=== PATIENT | male | born 1955 | race Caucasian/White ===

== ENCOUNTER 2016-07-10 10:35 | Inpatient (IN) | payer BC ==
[2016-08-10] MEDS ORDERED: ONDANSETRON 4 MG/2 ML VIAL IVP ONE (05:00)
[2016-08-10] MEDS ORDERED: MELOXICAM 7.5 MG TAB PO ONE (05:00)
[2016-08-10] MEDS ORDERED: ACETAMINOPHEN TAB 500 MG TAB PO ONE (05:00)
[2016-08-10] MEDS ORDERED: TRANEXAMIC ACID 1,000 MG in SODIUM CHLORIDE 0.9% 100 ML IVPB ONE (05:00)
[2016-08-10] MEDS ORDERED: ceFAZolin 2 GM in SODIUM CHLORIDE 0.9% 100 ML IVPB ONE (05:00)
[2016-08-10] MEDS ORDERED: MIDAZOLAM 2 MG/2 ML VIAL IV PRN (05:57)
[2016-08-10] MEDS ORDERED: HYDROmorphone 1 MG/ML 1 ML SYRINGE IVP PRN ×4 (05:57→13:15)
[2016-08-10] MEDS ORDERED: DEXAMETHASONE SOD PHOSPHATE 10 MG/ML 1 ML VIAL IV ONE (05:57)
[2016-08-10] MEDS ORDERED: SCOPOLAMINE 1.5MG/72HR PATCH TRANSDERM ONE (05:57)
[2016-08-10] MEDS ORDERED: LIDOCAINE 1% 20 ML VIAL (10MG/ML) FOR IV START INTRADERMA ONE (09:00)
[2016-08-10] MEDS ORDERED: ROPIVACAINE 1,100 MG, SODIUM CHLORIDE 0.9% 330 ML MISCELLANE PRN ×2 (09:46)
--- NOTE | 2016-08-10 09:47 | P.ONQ ---
Anesthesiology Proc Note - PNB - Peripheral Nerve Block Performed Left Adductor Canal Indication: Acute Post-Operative Pain, Dx/Pain Location, Requested by physician (raghavendra) Sedation Type: Sedate with meaningful contact maintained Preparation: Sterile Dressing Position: Supine Catheter: Indwelling Needle Types: On-Q Needle Size: 100mm (4") Needle Gauge: 20 Injectate: 0.5% Ropivacaine (see comment for volume) (22cc) Blood Aspirated: No Pain Paresthesia on Injection Noted: No Resistance on Injection: Normal Events: Uneventful and Well Tolerated
[2016-08-10] MEDS: LACTATED RINGERS 1,000 ML IV SCH ×2 (09:59→19:38)
--- NOTE | 2016-08-10 10:27 | P.OP ---
Date of Procedure: 08/10/16 Procedure(s) Performed: PREOPERATIVE DIAGNOSIS: Left knee severe osteoarthritis with genu varum POSTOPERATIVE DIAGNOSIS: Left knee severe osteoarthritis with genu varum OPERATION: Left knee cemented total replacement arthroplasty. ANESTHESIA: Spinal ESTIMATED BLOOD LOSS: 100 ml. IDENTITY MANAGEMENT DEVELOPER: Shweta Rodriguez PA-C (assistance with: patient positioning, retraction, exposure, hemostasis, leg positioning, implantation, irrigation, closure, dressing) COMPLICATIONS: None apparent. COMPONENTS IMPLANTED: Persona system from [employer] INDICATIONS: Mr. Winn is a 61-year-old male with a history of bilateral knee osteoarthritis. The operation of left knee replacement has been discussed at length in the office, as well as potential risks and complications. These are inclusive of, but not limited to: bleeding, infection, scarring, discomfort , blood vessel and nerve damage, need for further surgery, failure to relieve symptoms, persistence, recurrence, or worsening of problems, loosening, dislocation, wear, blood clot, pulmonary embolism, , gait dysfunction, stiffness, and other risks as discussed in the office. The patient elects to proceed and the consent form has been signed. PROCEDURE: The patient was taken to the operating room and positioned on the operating room table in the supine position. Anesthesia was initiated. Care was taken to make sure that all pressure points were adequately padded. The operative lower extremity was prepped and draped in the usual aseptic fashion using ChloraPrep. Ioban drape was used for the case and the patient received intravenous antibiotics within one hour of the incision. A pneumotourniquet and leg hutchins were used for the case. The limb was exsanguinated with an Esmarch bandage and the tourniquet was inflated to 300 mmHg. Time-out was called confirming the patient's identity, side, procedure and administration of antibiotics. The incision was then created midline directly over the knee, carried down through skin and into the subcutaneous tissues and down to fascia. Full thickness subcutaneous medial flap was developed. Medial parapatellar arthrotomy was performed and the interior of the knee was inspected. There was end-stage osteoarthritis of the knee with a mild to moderate genu varum type deformity. The fat pad was excised and proximal medial release on the tibia was completed using meticulous dissection and a curved osteotome. The anterior cruciate ligament was taken down. Note was made of significant attrition of the anterior and significant degenerative appearance of the posterior cruciate ligaments. The exposure was excellent. The knee was flexed 90 degrees and the patella was everted. A spot was chosen on the femur approximately 1 cm anterior to the posterior cruciate ligament insertion and an intramedullary hole was created within the femur. The intramedullary guide was then set to 5 degrees of valgus. The distal cutting block was attached and pinned into position. An appropriate amount of distal femoral resection was set. The oscillating saw was then used to make the distal femoral cut. This cut was confirmed to be flat with the flat end of an osteotome. The retractors were placed around the tibia and the tibial surface was addressed. The angle and depth of resection was adjusted using an extramedullary cutting guide. The guide had a built-in 3 degree posterior slope cut. Once the cutting guide was adjusted appropriately and in line with the axis of the tibia and confirmed to be in good position in relation to the second metatarsal and transmalleolar axis, the tibial cut was then created with protection of the posterior neurovascular structures and the collateral ligaments. The tibial cut surface was removed and sized. Femoral sizing was then accomplished using anterior referencing. Care was taken to analyze the posterior condyles for signs of deficiency or severe wear, and adjustments to the guide were made, as appropriate. 3 degree external rotation pins were placed. The cutting jig for the femur was applied to these pins. The planned cuts were further analyzed prior to performing them with the oscillating saw. No femoral notching was produced. Bone fragments were removed and the cut surfaces were finished, as necessary, with a reciprocating saw. Spacer block technique was then used to confirm that the flexion and extension gaps were equal. Soft tissue releases and adjustment of the tibial and/or femoral cuts were made, as necessary, until the gaps were equal. This included release of the posterior cruciate ligament, which was tight in this patient and , if left unreleased, would have resulted in poor kinematics and possibly early loosening. The femur was then further finished for a posterior cruciate ligament substituting component. Patellar resurfacing was performed using a reamer. The size of the required patellar component was estimated and the patellar surface was then reamed down to a residual thickness which would recreate the qagan tayagungin thickness with the component. The placement of the patellar component was influenced by the degree of patellar subluxation, if any, noted on the preoperative x-rays. Prior to placing trial components, anesthetic solution consisting of ropivicaine with epinephrine, ketorolac, and clonidine was injected carefully and methodically in a grid pattern using aspiration technique into the soft tissue around the knee circumferentially, starting with the deeper tissues first and progressing to fascia, and then finally the skin/subcutaneous tissue. Particular care was taken when injecting the posterior capsule. The trial components were inserted. The tibial tray was allowed to self center and the patella was noted to track very well. The position of the tibial component was marked and the tibia was then finished for a stemmed tibial component. Cement was mixed on the back table and applied to the final components. Trial components were removed and the cut surfaces of the bone were pulse lavaged thoroughly and dried. Cement was then applied to the tibial surface and pressurized into the surface using finger pressurization technique. The tibial component was then applied and excess cement was removed after it was impacted securely and noted to be flush with the cut surface. In similar fashion, the cement was applied to the cut femoral surface, pressurized in using finger pressurization and the component was impacted into place. Excess cement was removed. The polyethylene spacer was then implanted and locked into position. The patellar component was then applied in similar technique and a patellar clamp was used to hold the patella in place as the cement hardened. Once the cement had fully hardened, the knee was reinspected. Any other cement extrusion was removed and final kinematic testing showed range of motion from 0 to 130 degrees with excellent stability, both medially and laterally and appropriate alignment of the leg. Patellar tracking was excellent. The knee was then thoroughly pulse lavaged with normal saline. The tourniquet was deflated and hemostasis was obtained with electrocautery and IV tranexamic acid, 1 g given prior to inflation of the tourniquet and another gram given at the time of closure. Closure was with #2 Ethibond in the fascia and supplemented with #2 Quill, 2-0 Vicryl suture was used for the subcutaneous tissues and 3-0 Quill for the skin. Dermabond/Steri-Strips were then applied. A lightly compressive dressing was applied using Webril and an Santiago wrap. The patient was then transferred to [facility] and taken to the recovery room in stable condition. Sponge and needle counts were correct.
[2016-08-10] MEDS ORDERED: diphenhydrAMINE 50 MG/ML 1 ML VIAL ONE (10:37)
[2016-08-10] MEDS ORDERED: MIDAZOLAM 2 MG/2 ML VIAL ONE (10:37)
[2016-08-10] MEDS ORDERED: PROPOFOL 10 MG/ML 20 ML VIAL IV ONE (10:37)
[2016-08-10] MEDS ORDERED: fentaNYL (PF) 50 MCG/ML 2 ML AMP ONE (10:37)
[2016-08-10] MEDS: ROPIVACAINE 246.25 MG, EPINEPHrine 0.5 MG, KETOROLAC 30 MG, cloNIDine HCL/PF 80 MCG, WA... MISCELLANE ONE ×10 (11:24→12:35)
[2016-08-10] MEDS ORDERED: ceFAZolin 3,000 MG in SODIUM CHLORIDE 0.9% IRRIGATIO 3,000 ML IRRIGATION ONE (11:24)
[2016-08-10] MEDS ORDERED: LACTATED RINGERS 1,000 ML IV ONE ×2 (11:24→12:29)
[2016-08-10] MEDS ORDERED: TEMAZEPAM 15 MG CAP PO PRN (13:15)
[2016-08-10] MEDS ORDERED: NALOXONE 0.4 MG/ML 1 ML VIAL IV PRN (13:15)
[2016-08-10] MEDS ORDERED: ONDANSETRON 4 MG/2 ML VIAL IVP PRN (13:15)
[2016-08-10] MEDS ORDERED: ACETAMINOPHEN TAB 325 MG TAB PO PRN (13:15)
[2016-08-10] MEDS ORDERED: MAGNESIUM HYDROXIDE 2,400 MG/10 ML CUP PO PRN (13:15)
[2016-08-10] MEDS ORDERED: HYDROcodone/APAP 5-325MG 1 EACH TAB PO PRN (13:15)
[2016-08-10] MEDS ORDERED: BISACODYL 10 MG SUPP RECTAL PRN (13:15)
[2016-08-10] MEDS ORDERED: NA PHOS,M-B/NA PHOS,DI-BA 133 ML ENEMA RECTAL PRN (13:15)
--- NOTE | 2016-08-10 13:39 | XR ---
EXAMINATION TYPE: XR knee limited LT DATE OF EXAM: 08/10/2016 1:35 PM COMPARISON: NONE HISTORY: Post op FINDINGS: There is a prosthetic knee in near anatomic alignment. There is soft tissue edema and emphysema. IMPRESSION: 1. Postoperative change. Appears in near-anatomic alignment
[2016-08-10 14:05] VITALS: RESP 16
[2016-08-10 16:30] VITALS: BMI 34.9
[2016-08-10] MEDS: HYDROcodone/APAP 5-325MG 1 EACH TAB PO PRN (18:18)
[2016-08-10] MEDS: hydrOXYzine PAMOATE 25 MG CAP PO PRN (18:18)
[2016-08-10] MEDS: ceFAZolin 2 GM in SODIUM CHLORIDE 0.9% 100 ML IVPB SCH (19:38)
[2016-08-10] MEDS: ASPIRIN 325 MG TAB PO SCH (20:10)
--- NOTE | 2016-08-10 20:53 | CONS ---
DATE OF CONSULTATION: 08/10/2016 REASON FOR CONSULTATION: Medical management requested by Dr. Nation. CONSULTATION: This is a 61-year-old patient of Dr. Nguyen who has undergone a left total knee arthroplasty. Postprocedure lying in bed comfortable. No chest pain, shortness of breath, nausea, vomiting. Patient's chronic stable medical conditions include hypertension. REVIEW OF SYSTEMS: CONSTITUTIONAL: None. HEENT: None. RESPIRATORY: None. CARDIOVASCULAR: None. GASTROINTESTINAL: None. GENITOURINARY: None. MUSCULOSKELETAL: Pain in the joints. Dermatological: None. HEMATOLOGIC: None. LYMPHATICS: None. PSYCHIATRY: None. NEUROLOGICAL: None. PAST MEDICAL HISTORY: Hypertension, osteoarthritis. PAST SURGICAL HISTORY: Left knee arthroplasty, ( ). SOCIAL HISTORY: The patient smoked 1 1/2 pack for 40 years; stopped in 2012. . 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 FAMILY HISTORY: Reviewed, noncontributory to the presentation. HOME MEDICATIONS: 1. Capozide 25/15 1 tablets p.o. daily. 2. Multivitamin 1 tablet p.o. daily. 3. Motrin 800 mg p.o. daily. 4. ( ) 1 tablet p.o. daily. 5. Flonase one spray each nostril daily. 6. Aspirin 81 mg daily. 7. Senokot-S 1 tablet p.o. b.i.d. 8. [place] 5, 1 to 2 tablets q.4 p.r.n. 9. Aspirin 325 p.o. b.i.d. ALLERGIES: None. On examination, temperature 97, pulse 84, respirations 16, blood pressure 137/89, pulse ox 99% on room air. GENERAL APPEARANCE: Well built, BMI of 35, lying in bed. EYES: Pupils equal. Conjunctivae normal. HEENT: External appearance of nose and ears normal. Oral cavity normal. NECK: JVD not raised. Mass not palpable. RESPIRATORY: Effort normal. LUNGS: Fair air entry. CARDIOVASCULAR: First and second sounds normal. No edema. ABDOMEN: Soft, nontender. Liver and spleen not palpable. LYMPHATIC: No lymph nodes palpable in neck or axillae. PSYCHIATRY: Alert and oriented x3. Mood and affect normal. NEUROLOGICAL: Pupils equal. Cranial nerves grossly intact. Power and sensation grossly intact. MUSCULOSKELETAL: Left knee in a dressing. INVESTIGATIONS: No labs from today. ASSESSMENT: 1. Essential hypertension. 2. Obesity, body mass index of 35.0. 3. Primary osteoarthritis with leading to left total knee arthroplasty. PLAN: For DVT prophylaxis the patient is aspirin per Dr. Nation for deep venous thrombosis prophylaxis. We are also aware of the patient being on Mobic which does increase the probability of GI bleeding. Thank you, Dr. Nation.
[2016-08-10] MEDS ORDERED: SENNOSIDES-DOCUSATE SODIUM 1 EACH TAB PO SCH (21:00)
[2016-08-11] MEDS: LACTATED RINGERS 1,000 ML IV SCH ×3 (00:25→09:31)
[2016-08-11] MEDS: hydrOXYzine PAMOATE 25 MG CAP PO PRN (01:19)
[2016-08-11] MEDS: HYDROcodone/APAP 5-325MG 1 EACH TAB PO PRN ×3 (01:20→13:47)
[2016-08-11 02:47] VITALS: PULSE 67
[2016-08-11] MEDS: ceFAZolin 2 GM in SODIUM CHLORIDE 0.9% 100 ML IVPB SCH (04:08)
[2016-08-11 07:24] VITALS: BP 134/71; TEMP 97.7
--- NOTE | 2016-08-11 08:21 | P.PN ---
Progress Note - Text The patient is status post left adductor canal catheter placement. The catheter was placed for postoperative pain control, status post total left arthroplasty. Ropivacaine 0.2% is infusing at 8 mLs per hour. The patient has no complaints of left lower extremity numbness or weakness. Patient's VAS score is 2 -10. Assessment: Patient's adductor canal catheter is in place and working appropriately. Plan: continue infusion and adjust it as needed.
[2016-08-11] MEDS: ASPIRIN 325 MG TAB PO SCH (08:26)
[2016-08-11] MEDS ORDERED: MELOXICAM 7.5 MG TAB PO SCH (09:00)
--- NOTE | 2016-08-11 09:33 | P.DS ---
Providers Date of admission: 08/10/16 08:23 Expected date of discharge: 08/11/16 Attending physician: Sebastián Nation Consults: 08/10/16 13:15 Consult Physician Routine Consulting Provider: Kenneth Garcia Consult Reason/Comments: medical management Do you want consulting provider notified?: Yes Primary care physician: [facility] Course: Patient was admitted to the OR on 08/10/2016 to undergo left total knee arthroplasty. He had failed conservative measures as an outpatient and desired to proceed with elective surgery after given informed consent. He underwent the above procedure which he tolerated well without complication. His postoperative hospital course has remained without complication. On day of discharge he desires discharge. On day of discharge he is afebrile, vital signs stable, labs within acceptable range, wound is benign, neurovascular status intact, calf is soft and nontender, abdomen is soft and nontender. On day of discharge he is denying new complaints including numbness, tingling, weakness, abdominal pain. He is tolerating by mouth meds and diet, voiding without difficulty and positive flatus. Review of systems is negative for fever , chills, chest pain, shortness breath, nausea, vomiting, dizziness, headaches, slurred speech, calf pain or other. Procedures: Total knee arthroplasty Patient Condition at Discharge: Good Plan - Discharge Summary New Discharge Prescriptions: Aspirin 325 mg PO BID #120 tab HYDROcodone/APAP 5-325MG [[place] 5] 1 - 2 each PO Q4-6H PRN #90 tab PRN Reason: Pain Sennosides-Docusate Sodium [Senokot-S] 1 tab PO BID #60 tablet Discharge Medication List Aspirin 81 mg PO DAILY 07/14/16 [History] Captopril-Hctz 25-15 mg [Capozide 25-15] 1 tab PO DAILY 07/14/16 [History] Fluticasone Nasal [place] [Flonase Nasal [place]] 1 spray EA NOSTRIL DAILY 07/14/16 [History] Ibuprofen [Motrin] 800 mg PO DAILY 07/14/16 [History] Multivitamins, Thera [Multivitamin] 1 tab PO DAILY 07/14/16 [History] [place] Xl 1 tab PO DAILY 07/14/16 [History] Aspirin 325 mg PO BID #120 tab 08/10/16 [Rx] HYDROcodone/APAP 5-325MG [[place] 5] 1 - 2 each PO Q4-6H PRN #90 tab 08/10/16 [Rx] Sennosides-Docusate Sodium [Senokot-S] 1 tab PO BID #60 tablet 08/10/16 [Rx] Follow up Appointment(s)/Referral(s): Sebastián Nation MD [STAFF PHYSICIAN] - 2 Weeks Ambulatory/Diagnostic Orders: Continuous Passive Motion (CPM) Machine [DME.AMB1] Time Frame: 3 Weeks, Facility : [facility], Location: Case Management Activity/Diet/Wound Care/Special Instructions: May bear weight as tolerated with walker. May shower after 2 days if no drainage from incision. CPM 5-6h hours daily. Discharge Disposition: HOME WITH HOME HEALTH SERVICES
[2016-08-11 10:31] LABS: Basophils % (A) 0 %; CH 32.6; CHCM 34.1; Eosinophils % (A) 0 %; HCT 35.7 % (39.0-53.0); HDW 2.51; HGB 11.9 gm/dL (13.0-17.5); Luc # (Auto) 0.14; Luc % (Auto) 1; Lymphocytes # (A) 1.4 k/uL (1.0-4.8); Lymphocytes % (A) 13 %; MCHC 33.4 g/dL (31.0-37.0); Mean Platelet Volume 7.9; Monocytes # (A) 0.5 k/uL (0-1.0); Monocytes % (A) 5 %; Neutrophils # (A) 8.4 k/uL (1.3-7.7); Neutrophils % (A) 80 %; RBC 3.72 m/uL (4.30-5.90); RDW 12.7 % (11.5-15.5); WBC 10.5 k/uL (3.8-10.6)
[2016-08-11] MEDS ORDERED: MULTIVITAMINS, THERA 1 EACH TAB PO SCH (12:00)
--- NOTE | 2016-08-12 08:53 | PN ---
DATE OF SERVICE: 08/11/2016 PRESENTING COMPLAINT: Left knee surgery. INTERVAL HISTORY: This is a patient I saw this morning, doing well. Pain is controlled. No nausea, vomiting, up and about. Review of systems done for constitutional, cardiovascular, GI, pulmonary; relevant findings as above. Current medications are reviewed. On examination, temperature 97.7, pulse 67, respirations 16, blood pressure 130/71, pulse ox 94% on room air. GENERAL APPEARANCE: Sitting up, comfortable. EYES: Pupils equal. Conjunctivae normal. NECK: JVD not raised. Mass not palpable. RESPIRATORY: Effort normal. Lungs are clear. CARDIOVASCULAR: First and second sounds normal. No edema. ABDOMEN: Soft, nontender. Liver and spleen not palpable. PSYCHIATRY: Alert and oriented x3. Mood and affect normal. INVESTIGATIONS: White count 10.5, hemoglobin 11.9. ASSESSMENT: 1. Essential hypertension. 2. Obesity; body mass index 35. 3. Primary osteoarthritis leading to left total knee arthroplasty. 4. Possible acute blood loss anemia as expected from surgery. Care was discussed with the patient and family. Continue current medication and treatment plan.
== END 2016-08-11 14:11 | disposition home health service (06) | DRG 470 ==
LOC: 2ORMAIN 08-10 08:23 → 3SUR 08-10 13:12
PROVIDERS: ADMIT Orthopaedic Surgery; ATTEND Orthopaedic Surgery
PROC: 0SRD0J9 Replacement of Left Knee Joint with Synthetic Substitute, Cemented, Open Approach (ICD-10-PCS; principal; 2016-08-10 10:35)
DX: M17.0 Bilateral primary osteoarthritis of knee (principal); I10 Essential (primary) hypertension; Z79.1 Long term (current) use of non-steroidal anti-inflammatories (NSAID); Z79.82 Long term (current) use of aspirin; Z79.899 Other long term (current) drug therapy; M21.162 Varus deformity, not elsewhere classified, left knee; Z87.891 Personal history of nicotine dependence
CPT/HCPCS: 85025; 88300

== ENCOUNTER → 2016-07-30 | Outpatient (CLI) | payer BC ==
[2016-07-30 15:49] LABS: Appearance,Urine Clear (Clear); Bilirubin,Urine Negative (Negative); Glucose,Urine (UA) Negative (Negative); Ketones,Urine Negative (Negative); Leukocyte Esterase,Urine Negative (Negative); Nitrite,Urine Negative (Negative); PH, Urine 5.5 (5.0-8.0); Protein,Urine Negative (Negative); Specific Gravity,Urine 1.019 (1.001-1.035); UA Billing (MACRO vs. MICRO) CHEM
[2016-07-30 16:03] LABS: ALT 50 U/L (21-72); AST 25 U/L (17-59); Alkaline Phosphatase 72 U/L (38-126); Anion Gap 12 mmol/L; Blood Urea Nitrogen 25 mg/dL (9-20); Calcium 9.2 mg/dL (8.4-10.2); Carbon Dioxide 28 mmol/L (22-30); Chloride 100 mmol/L (98-107); Glucose 120 mg/dL (74-99); Non-African American GFR(MDRD) 60 (>60 ml/min/1.73 sqM); Potassium 4.1 mmol/L (3.5-5.1); Sodium 140 mmol/L (137-145); Total Protein 7.3 g/dL (6.3-8.2)
[2016-07-30 16:09] LABS: Partial Thromboplastin Time 22.7 sec (22.0-30.0); Prothrombin Time 9.8 sec (9.0-12.0)
[2016-07-30 16:19] LABS: Basophils # (A) 0.1 k/uL (0-0.2); Basophils % (A) 1 %; CH 32.8; Eosinophils # (A) 0.1 k/uL (0-0.7); Eosinophils % (A) 2 %; HCT 43.6 % (39.0-53.0); HDW 2.44; HGB 14.7 gm/dL (13.0-17.5); Luc # (Auto) 0.18; Luc % (Auto) 3; Lymphocytes # (A) 1.5 k/uL (1.0-4.8); Lymphocytes % (A) 22 %; MCH 31.6 pg (25.0-35.0); MCHC 33.6 g/dL (31.0-37.0); MCV 93.9 fL (80.0-100.0); Mean Platelet Volume 7.3; Monocytes # (A) 0.3 k/uL (0-1.0); Monocytes % (A) 5 %; Neutrophils # (A) 4.5 k/uL (1.3-7.7); Neutrophils % (A) 68 %; RBC 4.64 m/uL (4.30-5.90); RDW 12.5 % (11.5-15.5); WBC 6.7 k/uL (3.8-10.6); WBC (Perox) 6.53
== END | disposition home or self-care (01) ==
LOC: LABPAT 15:20
PROVIDERS: ATTEND Orthopaedic Surgery
DX: Z01.812 Encounter for preprocedural laboratory examination (principal)
CPT/HCPCS: 80053; 81003; 85025; 85610; 85730; 87070

== ENCOUNTER → 2016-07-30 | Outpatient (CLI) | payer BC ==
--- NOTE | 2016-07-30 15:56 | XR ---
EXAMINATION TYPE: XR chest 2V DATE OF EXAM: 07/30/2016 3:22 PM COMPARISON: NONE HISTORY: Presurgical TECHNIQUE: Frontal and lateral views of the chest are obtained. FINDINGS: Exam is expiratory. Interstitium is increased. Patient is rotated. No pneumothorax or pleu ral effusion. Heart size may be accentuated by rotation. IMPRESSION: Expiratory rotated exam with prominence of interstitium. Follow-up as indicated.
== END | disposition home or self-care (01) ==
LOC: RADXRMAIN 15:03
PROVIDERS: ATTEND Family Medicine
DX: Z01.818 Encounter for other preprocedural examination (principal)
CPT/HCPCS: 71020; 80053; 81003; 85025; 85610; 85730; 87070

== ENCOUNTER 2018-01-07 09:23 | Day surgery (SDC) | payer BC ==
[2018-01-05 11:23] VITALS: BMI 36.9
[~2018-01-07 09:23] MED LIST: LACTATED RINGERS 1,000 ML IV SCH
[2018-01-07 10:10] VITALS: RESP 18; TEMP 98
[2018-01-07] MEDS ORDERED: LIDOCAINE 1% 20 ML VIAL (10MG/ML) FOR IV START INTRADERMA ONE (10:10)
[2018-01-07] MEDS ORDERED: PROPOFOL 10 MG/ML 20 ML VIAL IV ONE (10:56)
[2018-01-07] MEDS ORDERED: fentaNYL (PF) 50 MCG/ML 2 ML AMP ONE (10:56)
[2018-01-07] MEDS ORDERED: MIDAZOLAM 2 MG/2 ML VIAL ONE (10:56)
--- NOTE | 2018-01-07 11:17 | P.PCN ---
Date of Procedure: 01/07/18 Procedure(s) Performed: BRIEF HISTORY: Patient is a 62-year-old pleasant white male, scheduled for an elective colonoscopy as a part of evaluation of prior history of colon polyps. PROCEDURE PERFORMED: Colonoscopy. PREOPERATIVE DIAGNOSIS: History of colon polyps. IV sedation per Anesthesia. PROCEDURE: After informed consent was obtained, the patient, was brought into the endoscopy unit. IV sedation was administered by Anesthesia under continuous monitoring. Digital rectal examination was normal. Initially the Olympus CF- 160 flexible video colonoscope was then inserted in the rectum, gradually advanced into the cecum without any difficulty. Careful examination was performed as the scope was gradually being withdrawn. Ileocecal valve and the appendiceal orifice were visualized and appeared normal. Prep was excellent. Mucosa of the cecum, ascending colon, transverse colon, descending colon, sigmoid colon, and rectum appeared normal. Scattered sigmoid diverticulosis. Retroflexion was performed in the rectum and small internal hemorrhoids were seen. The patient tolerated the procedure well. IMPRESSION: Normal-appearing colon from rectum to cecum with no evidence of colorectal neoplasia . RECOMMENDATIONS: Findings of this examination were discussed with the patient as well as his family. He was advised to have a repeat screening colonoscopy in in 10 years.
[2018-01-07 11:32] VITALS: BP 129/77; PULSE 75
== END 2018-01-07 11:55 | disposition home or self-care (01) ==
LOC: ORWHC2ENDO 09:23
PROVIDERS: ATTEND Internal Medicine Gastroenterology
DX: Z12.11 Encounter for screening for malignant neoplasm of colon (principal); K57.30 Diverticulosis of large intestine without perforation or abscess without bleeding; K64.8 Other hemorrhoids; I10 Essential (primary) hypertension; Z86.010 Personal history of colon polyps; Z87.891 Personal history of nicotine dependence; Z79.82 Long term (current) use of aspirin; Z79.1 Long term (current) use of non-steroidal anti-inflammatories (NSAID); Z79.899 Other long term (current) drug therapy
CPT/HCPCS: J2250; J3010; J2704; G0105

== ENCOUNTER → 2020-06-21 | Outpatient (CLI) | payer MEDICARE ==
[2020-06-21 09:44] LABS: HCT 42.8 % (39.0-53.0); HGB 14.9 gm/dL (13.0-17.5); MCHC 34.8 g/dL (31.0-37.0); MCV 94.8 fL (80.0-100.0); Mean Platelet Volume 7.7; Platelet Count 311 k/uL (150-450); RBC 4.51 m/uL (4.30-5.90); RDW 12.2 % (11.5-15.5); WBC 7.7 k/uL (3.8-10.6)
[2020-06-21 16:00] LABS: African American GFR (CKD) 80.6 (60.0-200.0); Anion Gap 7.3 mmol/L (4.00-12.00); BUN/Creat Ratio 21.82 Ratio (12.00-20.00); Calcium 9.3 mg/dL (8.7-10.3); Carbon Dioxide 30.7 mmol/L (21.6-31.8); Chol/HDL Ratio 3.17; Non-African American GFR(CKD) 69.6 (60.0-200.0); Potassium 4.3 mmol/L (3.5-5.5)
[2020-06-21 17:14] LABS: Hemoglobin A1C 5.8 % (4.0-6.0)
== END | disposition home or self-care (01) ==
LOC: LABWHC1 08:56
PROVIDERS: ATTEND Family Medicine
DX: E78.00 Pure hypercholesterolemia, unspecified (principal); I10 Essential (primary) hypertension; R73.03 Prediabetes
CPT/HCPCS: 36415; 80048; 80061; 83036; 84450; 84460; 85027

== ENCOUNTER → 2020-10-01 | Outpatient (CLI) | payer MEDICARE ==
[2020-10-01 16:22] LABS: Chol/HDL Ratio 3.15; LDL Cholesterol,Calculated 105.4 mg/dL (0.0-131.0); VLDL Calculation 25.6 mg/dL (5.00-40.00)
== END | disposition home or self-care (01) ==
LOC: LABWHC1 08:20
PROVIDERS: ATTEND Family Medicine
DX: E78.00 Pure hypercholesterolemia, unspecified (principal)
CPT/HCPCS: 36415; 80061; 84450; 84460

== ENCOUNTER → 2021-01-01 | Outpatient (CLI) | payer MEDICARE ==
[2021-01-01 14:23] LABS: HCT 42.3 % (39.6-50.0); HGB 13.9 g/dL (13.0-17.0); MCHC 32.9 g/dL (32.0-37.0); MCV 97.2 fL (80.0-97.0); Mean Platelet Volume 10.9 fL (9.5-12.2); Platelet Count 285 X 10*3/uL (140-440); RBC 4.35 X 10*6/uL (4.40-5.60); RDW 12.2 % (11.5-14.5); WBC 6.56 X 10*3/uL (4.50-10.00)
[2021-01-01 17:53] LABS: Hemoglobin A1C 6.1 % (4.0-6.0)
[2021-01-01 19:47] LABS: African American GFR (CKD) 80.1 (60.0-200.0); Albumin 4.6 g/dL (3.80-4.90); Anion Gap 10.3 mmol/L (4.00-12.00); BUN/Creat Ratio 19.09 Ratio (12.00-20.00); Calcium 9.1 mg/dL (8.7-10.3); Carbon Dioxide 27.7 mmol/L (21.6-31.8); Chol/HDL Ratio 2.69; Globulin 2.3 g/dL (1.6-3.3); LDL Cholesterol,Calculated 83.8 mg/dL (0.0-131.0); Non-African American GFR(CKD) 69.1 (60.0-200.0); Potassium 4.7 mmol/L (3.5-5.5); Total Bilirubin 0.9 mg/dL (0.3-1.2); Total Protein 6.9 g/dL (6.2-8.2); VLDL Calculation 19.2 mg/dL (5.00-40.00)
[2021-01-01 19:54] LABS: Prostate Specific Antigen 0.6 ng/mL (0.0-4.5)
== END | disposition home or self-care (01) ==
LOC: LABWHC1 09:05
PROVIDERS: ATTEND Family Medicine
DX: Z00.01 Encounter for general adult medical examination with abnormal findings (principal); R73.03 Prediabetes; E66.01 Morbid (severe) obesity due to excess calories
CPT/HCPCS: 36415; 80053; 80061; 83036; 84153; 84443; 85027

== ENCOUNTER → 2021-05-09 | Outpatient (CLI) | payer MEDICARE | END | disposition home or self-care (01) | LOC: LABWHC1 09:37 | PROVIDERS: ATTEND Family Medicine | DX: E03.9 Hypothyroidism, unspecified (principal); R73.03 Prediabetes | CPT/HCPCS: 36415; 83036; 84439 ==

== ENCOUNTER → 2021-06-28 | Outpatient (CLI) | payer MEDICARE ==
[2021-06-28 12:57] LABS: HCT 42.5 % (39.6-50.0); HGB 14.3 g/dL (13.0-17.0); MCH 31.9 pg (27.0-32.0); MCHC 33.6 g/dL (32.0-37.0); MCV 94.9 fL (80.0-97.0); Mean Platelet Volume 10.3 fL (9.5-12.2); Platelet Count 304 X 10*3/uL (140-440); RBC 4.48 X 10*6/uL (4.40-5.60); RDW 12.2 % (11.5-14.5); WBC 6.21 X 10*3/uL (4.50-10.00)
[2021-06-28 13:39] LABS: ALT 46 U/L (10-49); AST 26 U/L (14-35); African American GFR (CKD) 89.9 (60.0-200.0); Blood Urea Nitrogen 22.7 mg/dL (9.0-27.0); Calcium 9.3 mg/dL (8.7-10.3); Carbon Dioxide 24.8 mmol/L (20.0-27.5); Chloride 101 mmol/L (96-109); Chol/HDL Ratio 3.21 Ratio; Glucose 112 mg/dL (70-110); LDL Cholesterol,Calculated 112.8 mg/dL (0.0-131.0); Non-African American GFR(CKD) 77.5 (60.0-200.0); Potassium 4.7 mmol/L (3.5-5.5); Sodium 138 mmol/L (135-145); VLDL Calculation 13.22 mg/dL (5.00-40.00)
== END | disposition home or self-care (01) ==
LOC: LABWHC1 08:54
PROVIDERS: ATTEND Family Medicine
DX: I10 Essential (primary) hypertension (principal); E78.00 Pure hypercholesterolemia, unspecified; E66.01 Morbid (severe) obesity due to excess calories
CPT/HCPCS: 36415; 80048; 80061; 82306; 83036; 84450; 84460; 85027

== ENCOUNTER → 2021-12-30 | Outpatient (CLI) | payer MEDICARE ==
[2021-12-30 14:54] LABS: HCT 43.4 % (39.6-50.0); HGB 14.3 g/dL (13.0-17.0); MCH 31.5 pg (27.0-32.0); MCHC 32.9 g/dL (32.0-37.0); MCV 95.6 fL (80.0-97.0); Mean Platelet Volume 10.4 fL (9.5-12.2); NRBC Per 100 WBC 0 /100 WBCS (0.0-0.0); Platelet Count 283 X 10*3/uL (140-440); RBC 4.54 X 10*6/uL (4.40-5.60); RDW 12.4 % (11.5-14.5); WBC 6.16 X 10*3/uL (4.50-10.00)
[2021-12-30 15:25] LABS: ALT 47 U/L (10-49); AST 33 U/L (14-35); African American GFR (CKD) 91.1 (60.0-200.0); Albumin 4.6 g/dL (3.8-4.9); Albumin/Globulin Ratio 2.05 (1.60-3.17); Alkaline Phosphatase 68 U/L (41-126); BUN/Creat Ratio 22.69 Ratio (12.00-20.00); Blood Urea Nitrogen 22.3 mg/dL (9.0-27.0); Calcium 9.2 mg/dL (8.7-10.3); Carbon Dioxide 25.2 mmol/L (20.0-27.5); Chloride 100 mmol/L (96-109); Chol/HDL Ratio 2.82 Ratio; Globulin 2.3 g/dL (1.6-3.3); Glucose 113 mg/dL (70-110); Non-African American GFR(CKD) 78.6 (60.0-200.0); Potassium 4.7 mmol/L (3.5-5.5); Sodium 138 mmol/L (135-145); Total Protein 6.9 g/dL (6.2-8.2); VLDL Calculation 17.02 mg/dL (5.00-40.00)
== END | disposition home or self-care (01) ==
LOC: LABWHC1 08:55
PROVIDERS: ATTEND Family Medicine
DX: Z00.01 Encounter for general adult medical examination with abnormal findings (principal); E66.01 Morbid (severe) obesity due to excess calories
CPT/HCPCS: 36415; 80053; 80061; 82306; 83036; 84153; 84443; 85027

== ENCOUNTER → 2022-01-07 | Outpatient (CLI) | payer MEDICARE | END | disposition home or self-care (01) | LOC: LABWHC1 09:17 | PROVIDERS: ATTEND Family Medicine | DX: R89.9 Unspecified abnormal finding in specimens from other organs, systems and tissues (principal) | CPT/HCPCS: 36415; 84439 ==

== ENCOUNTER 2022-06-01 08:53 | Inpatient (IN) | payer MEDICARE ==
--- NOTE | 2022-06-01 09:30 | ED ---
Abdominal Pain HPI - General Chief Complaint: Abdominal Pain Stated Complaint: right side abd pain Time Seen by Provider: 06/01/22 09:19 Source: patient, RN notes reviewed Mode of arrival: ambulatory Limitations: no limitations - History of Present Illness Initial Comments: Patient is a 66 year old male presenting to the ER with a chief compliant of abdominal pain. Patient reports this started on 05/30/22 and has been constant. He describes it as right lower quadrant pain worse with any movement. Denies nausea, vomiting, diarrhea, or constipation. Patient states he has not eaten much in the past couple of days expect oatmeal yesterday due to the pain. He took an Aleve with slight relief yesterday. Patient admits to daily alcohol consumption. Patient denies headaches, fevers, chills, nightsweats, shortness of breath, chest pain/palpitations, dysuria, or peripheral edema. - Related Data Home Medications Medication Instructions Recorded Confirmed Fluticasone Nasal [place] [Flonase 2 spray EA NOSTRIL DAILY 07/14/16 06/01/22 Nasal [place]] Multivitamins, Thera [Multivitamin] 1 tab PO DAILY 07/14/16 06/01/22 Aspirin 81 mg PO DAILY 01/06/18 06/01/22 Atorvastatin [Lipitor] 20 mg PO HS 06/01/22 06/01/22 Cholecalciferol [Vitamin D3 (25 25 mcg PO DAILY 06/01/22 06/01/22 Mcg = 1000 Iu)] Ibuprofen [Motrin Ib] 400 mg PO DAILY 06/01/22 06/01/22 captopriL [Captopril] 25 mg PO DAILY 06/01/22 06/01/22 hydroCHLOROthiazide 12.5 mg PO DAILY 06/01/22 06/01/22 Allergies Allergy/AdvReac Type Severity Reaction Status Date / Time No Known Allergies Allergy Verified 06/01/22 08:59 Review of Systems ROS Statement: Those systems with pertinent positive or pertinent negative responses have been documented in the HPI. ROS Other: All systems not noted in ROS Statement are negative. Past Medical History Past Medical History: Hearing Disorder / Deafness, Hyperlipidemia, Hypertension, Osteoarthritis (OA) Additional Past Medical History / Comment(s): RIGHT EAR- HARD OF HEARING History of Any Multi-Drug Resistant Organisms: None Reported Past Surgical History: Joint Replacement Additional Past Surgical History / Comment(s): LEFT KNEE ARTHROTOMY,TOTAL LEFT KNEE ,EYE SURGERY A CHILD,LASIK Past Anesthesia/Blood Transfusion Reactions: No Reported Reaction Past Psychological History: No Psychological Hx Reported Smoking Status: Former smoker Past Alcohol Use History: Daily Past Drug Use History: None Reported - Past Family History Mother Family Medical History: No Reported History General Exam Limitations: no limitations General appearance: alert, in no apparent distress Head exam: Present: atraumatic, normocephalic, normal inspection Eye exam: Present: normal appearance, PERRL, EOMI. Absent: scleral icterus, conjunctival injection, periorbital swelling ENT exam: Present: normal exam, mucous membranes moist Neck exam: Present: normal inspection. Absent: tenderness, meningismus, lym phadenopathy Respiratory exam: Present: normal lung sounds bilaterally. Absent: respiratory distress, wheezes, rales, rhonchi, stridor Cardiovascular Exam: Present: normal rhythm, tachycardia, normal heart sounds GI/Abdominal exam: Present: soft, tenderness (RUQ and RLQ), normal bowel sounds Extremities exam: Present: normal inspection, full ROM, normal capillary refill. Absent: tenderness, pedal edema, joint swelling, calf tenderness Back exam: Present: normal inspection Neurological exam: Present: alert, oriented X3, CN II-XII intact Psychiatric exam: Present: normal affect, normal mood Skin exam: Present: warm, dry, intact, normal color. Absent: rash Course Vital Signs 06/01/22 08:57 Temperature 98.4 F Pulse Rate 112 H Respiratory 18 Rate Blood Pressure 101/53 O2 Sat by Pulse 97 Oximetry Medical Decision Making - Medical Decision Making 66-year-old male presented for abdominal pain. Patient CT shows evidence of uncomplicated acute appendicitis. Patient will be admitted for surgery patient was started on IV fluids, antibiotics. - Lab Data Result diagrams: 06/01/22 09:52 06/01/22 09:52 Lab Results 06/01/22 06/01/22 06/01/22 Range/Units 09:52 09:52 09:52 WBC 14.4 H (3.8-10.6) k/uL RBC 4.49 (4.30-5.90) m/uL Hgb 14.7 (13.0-17.5) gm/dL Hct 42.0 (39.0-53.0) % MCV 93.5 (80.0-100.0) fL MCH 32.8 (25.0-35.0) pg MCHC 35.1 (31.0-37.0) g/dL RDW 12.3 (11.5-15.5) % Plt Count 350 (150-450) k/uL MPV 8.6 Neutrophils % 85 % Lymphocytes % 8 % Monocytes % 5 % Eosinophils % 0 % Basophils % 1 % Neutrophils # 12.2 H (1.3-7.7) k/uL Lymphocytes # 1.1 (1.0-4.8) k/uL Monocytes # 0.8 (0-1.0) k/uL Eosinophils # 0.1 (0-0.7) k/uL Basophils # 0.1 (0-0.2) k/uL Sodium 137 (137-145) mmol/L Potassium 4.4 (3.5-5.1) mmol/L Chloride 102 (98-107) mmol/L Carbon Dioxide 24 (22-30) mmol/L Anion Gap 11 mmol/L BUN 20 (9-20) mg/dL Creatinine 1.44 H (0.66-1.25) mg/dL Est GFR (CKD-EPI)AfAm 57 (>60 ml/min/1.73 sqM) Est GFR (CKD-EPI)NonAf 50 (>60 ml/min/1.73 sqM) Glucose 152 H (74-99) mg/dL Plasma Lactic Acid [place] 1.3 (0.7-2.0) mmol/L Calcium 8.9 (8.4-10.2) mg/dL Total Bilirubin 3.0 H (0.2-1.3) mg/dL AST 35 (17-59) U/L ALT 35 (4-49) U/L Alkaline Phosphatase 125 (38-126) U/L Total Protein 7.1 (6.3-8.2) g/dL Albumin 4.3 (3.5-5.0) g/dL Lipase 43 (23-300) U/L Urine Color Urine Appearance (Clear) Urine pH (5.0-8.0) Ur Specific [place] (1.001-1.035) Urine Protein (Negative) Urine Glucose (UA) (Negative) Urine Ketones (Negative) Urine Blood (Negative) Urine Nitrite (Negative) Urine Bilirubin (Negative) Urine Urobilinogen (<2.0) mg/dL Ur Leukocyte Esterase (Negative) Urine RBC (0-5) /hpf Urine WBC (0-5) /hpf Amorphous Sediment (None) /hpf Urine Bacteria (None) /hpf Hyaline Casts (0-2) /lpf Urine Mucus (None) /hpf 06/01/22 Range/Units 10:50 WBC (3.8-10.6) k/uL RBC (4.30-5.90) m/uL Hgb (13.0-17.5) gm/dL Hct (39.0-53.0) % MCV (80.0-100.0) fL MCH (25.0-35.0) pg MCHC (31.0-37.0) g/dL RDW (11.5-15.5) % Plt Count (150-450) k/uL MPV Neutrophils % % Lymphocytes % % Monocytes % % Eosinophils % % Basophils % % Neutrophils # (1.3-7.7) k/uL Lymphocytes # (1.0-4.8) k/uL Monocytes # (0-1.0) k/uL Eosinophils # (0-0.7) k/uL Basophils # (0-0.2) k/uL Sodium (137-145) mmol/L Potassium (3.5-5.1) mmol/L Chloride (98-107) mmol/L Carbon Dioxide (22-30) mmol/L Anion Gap mmol/L BUN (9-20) mg/dL Creatinine (0.66-1.25) mg/dL Est GFR (CKD-EPI)AfAm (>60 ml/min/1.73 sqM) Est GFR (CKD-EPI)NonAf (>60 ml/min/1.73 sqM) Glucose (74-99) mg/dL Plasma Lactic Acid [place] (0.7-2.0) mmol/L Calcium (8.4-10.2) mg/dL Total Bilirubin (0.2-1.3) mg/dL AST (17-59) U/L ALT (4-49) U/L Alkaline Phosphatase (38-126) U/L Total Protein (6.3-8.2) g/dL Albumin (3.5-5.0) g/dL Lipase (23-300) U/L Urine Color Yellow Urine Appearance Clear (Clear) Urine pH 8.0 (5.0-8.0) Ur Specific [place] 1.023 (1.001-1.035) Urine Protein 1+ H (Negative) Urine Glucose (UA) Negative (Negative) Urine Ketones Negative (Negative) Urine Blood Negative (Negative) Urine Nitrite Negative (Negative) Urine Bilirubin Negative (Negative) Urine Urobilinogen 3.0 (<2.0) mg/dL Ur Leukocyte Esterase Negative (Negative) Urine RBC 1 (0-5) /hpf Urine WBC 6 H (0-5) /hpf Amorphous Sediment Few H (None) /hpf Urine Bacteria Rare H (None) /hpf Hyaline Casts 17 H (0-2) /lpf Urine Mucus Rare H (None) /hpf Disposition Clinical Impression: Acute appendicitis Disposition: ADMITTED IP TO THIS HOSP Referrals: Ronan Nguyen DO [Primary Care Provider] - 1-2 days Time of Disposition: 11:24
[2022-06-01] MEDS ORDERED: SODIUM CHLORIDE 0.9% 1,000 ML IV STA (09:31)
[2022-06-01 10:00] LABS: Basophils # (A) 0.1 k/uL (0-0.2); Basophils % (A) 1 %; Eosinophils # (A) 0.1 k/uL (0-0.7); Eosinophils % (A) 0 %; HGB 14.7 gm/dL (13.0-17.5); Lymphocytes # (A) 1.1 k/uL (1.0-4.8); Lymphocytes % (A) 8 %; MCH 32.8 pg (25.0-35.0); MCHC 35.1 g/dL (31.0-37.0); MCV 93.5 fL (80.0-100.0); Mean Platelet Volume 8.6; Monocytes # (A) 0.8 k/uL (0-1.0); Monocytes % (A) 5 %; Neutrophils # (A) 12.2 k/uL (1.3-7.7); Neutrophils % (A) 85 %; Platelet Count 350 k/uL (150-450); RBC 4.49 m/uL (4.30-5.90); RDW 12.3 % (11.5-15.5); WBC 14.4 k/uL (3.8-10.6)
[2022-06-01 10:12] LABS: Albumin 4.3 g/dL (3.5-5.0); Calcium 8.9 mg/dL (8.4-10.2); Potassium 4.4 mmol/L (3.5-5.1); Total Protein 7.1 g/dL (6.3-8.2)
--- NOTE | 2022-06-01 11:02 | CT ---
EXAMINATION TYPE: CT abdomen pelvis w con CT DLP: 2219.2 mGycm, Automated exposure control for dose reduction was used. DATE OF EXAM: 06/01/2022 10:44 AM COMPARISON: None. CLINICAL INDICATION:Male, 66 years old with history of abdominal pain; Rt sided pain TECHNIQUE: Axial CT of the abdomen and pelvis. Sagittal and coronal reformats were created on a [employer] workstation. Contrast used:80 mL of Isovue 300 with IV Contrast, Oral contrast used: without Oral Contrast FINDINGS: LOWER CHEST: Unremarkable ABDOMEN LIVER: Diffusely hypoattenuating parenchyma. Hypoattenuating probable cyst noted. GALLBLADDER AND BILE DUCTS: Unremarkable. PANCREAS: Unremarkable. SPLEEN: Unremarkable. ADRENAL GLANDS: Unremarkable. KIDNEYS AND URETERS: No evidence of hydronephrosis or renal calculus. The ureters are unremarkable. PELVIS BLADDER: Unremarkable REPRODUCTIVE: Unremarkable. ABDOMEN & PELVIS STOMACH AND BOWEL: No evidence of bowel obstruction. The appendix is dilated with adjacent fat strand ing changes measuring up to 9 mm in thickness. No free air or organizing fluid collection. PERITONEUM: No evidence of pneumoperitoneum or free fluid. VASCULATURE: No evidence of aortic aneurysm. Atherosclerosis of the arterial vasculature. MUSCULOSKELETAL: No acute osseous abnormalities LYMPH NODES: No gross evidence for lymphadenopathy. SOFT TISSUE/ABDOMINAL WALL: Fat filled inguinal changes to the canals. IMPRESSION: 1. Acute uncomplicated appendicitis. 2. Hepatic steatosis.
[2022-06-01 11:23] LABS: Amorphous Sediment,Urine Few /hpf; Appearance,Urine Clear (Clear); Bacteria,Urine Rare /hpf; Bilirubin,Urine Negative (Negative); Blood,Urine Negative (Negative); Color,Urine Yellow; Glucose,Urine (UA) Negative (Negative); Hyaline Casts,Urine 17 /lpf (0-2); Ketones,Urine Negative (Negative); Leukocyte Esterase,Urine Negative (Negative); Mucus,Urine Rare /hpf; Nitrite,Urine Negative (Negative); Protein,Urine 1+ (Negative); RBC,Urine 1 /hpf (0-5); Specific Gravity,Urine 1.023 (1.001-1.035); WBC,Urine 6 /hpf (0-5)
[2022-06-01] MEDS ORDERED: ONDANSETRON 4 MG/2 ML VIAL IVP PRN (11:32)
[2022-06-01] MEDS ORDERED: NALOXONE 0.4 MG/ML 1 ML VIAL IV PRN (11:32)
[2022-06-01] MEDS ORDERED: PIPERACILLIN-TAZOBACTAM 3.375 GM in SODIUM CHLORIDE 0.9% 100 ML IVPB STA (11:37)
[2022-06-01] MEDS: SODIUM CHLORIDE 0.9% 1,000 ML IV SCH ×2 (11:53→21:05)
--- NOTE | 2022-06-01 12:54 | P.GSHP ---
History of Present Illness H&P Date: 06/01/22 CHIEF COMPLAINT: Abdominal pain HISTORY OF PRESENT ILLNESS: This is a 66-year-old male who presented with right lower quadrant abdominal pain that started on Wednesday, 2 days ago. Patient reports decreased appetite. He also reports having chills and now resolved. He denies any fever. The last meal he ate was yesterday morning he had oatmeal. Patient was barely tachycardic with elevated white count on admission. His computed tomography scan had shown evidence of acute uncomplicated appendicitis. Patient denies any prior surgical history. Denies any cardiac history. He does drink 4-5 beers daily. PAST MEDICAL HISTORY: earing Disorder / Deafness, Hyperlipidemia, Hypertension, Osteoarthritis (OA) PAST SURGICAL HISTORY: See below MEDICATIONS: See below ALLERGIES: See below SOCIAL HISTORY: No illicit drug use. REVIEW OF SYSTEMS: CONSTITUTIONAL: Denies fever or chills. HEENT: Denies blurred vision, vision changes, or eye pain. Denies hemoptysis CARDIOVASCULAR: Denies chest pain or pressure. RESPIRATORY: No shortness of breath. GASTROINTESTINAL: See HPI for pertinent findings HEMATOLOGIC: Denies bleeding disorders. GENITOURINARY: Denies any blood in urine or increased urinary frequency. SKIN: Denies pruitis. Denies rash. PHYSICAL EXAM: VITAL SIGNS: Reviewed GENERAL: Well-developed in no acute distress. HEENT: No sclera icterus. Extraocular movements grossly intact. Moist buccal mucosa. Head is atraumatic, normocephalic. No nasal drainage. ABDOMEN: Soft. Nondistended. Tenderness with palpation to right lower quadrant. NEUROLOGIC: Alert and oriented. Cranial nerves II through XII grossly intact. LABORATORY DATA: WBC 14.4 Hgb 14.7 platelets 350 Sodium 137 potassium is 4.4 creatinine 1.44 Lactic acid 1.3 total bilirubin 3 AST 35 ALT 35 alk phos 125 lipase 43 Urinalysis no evidence of infection IMAGING: Computed tomography scan abdomen and pelvis acute uncomplicated appendicitis. Hepatic steatosis ASSESSMENT: 1. Acute uncomplicated appendicitis 2. Right lower quadrant abdominal pain 3. Daily alcohol use 4. Acute kidney injury likely due to dehydration PLAN: -Patient scheduled for laparoscopic appendectomy today with Dr. kent -Keep patient nothing by mouth -Continue IV antibiotics -Continue IV fluid -Continue antiemetics -Continue pain medication as needed -Consult medicine service for medical management Physician Dry Pan Charger note has been reviewed by physician. Signing provider agrees with the documented findings, assessment, and plan of care. Past Medical History Past Medical History: Hearing Disorder / Deafness, Hyperlipidemia, Hypertension, Osteoarthritis (OA) Additional Past Medical History / Comment(s): RIGHT EAR- HARD OF HEARING History of Any Multi-Drug Resistant Organisms: None Reported Past Surgical History: Joint Replacement Additional Past Surgical History / Comment(s): LEFT KNEE ARTHROTOMY,TOTAL LEFT KNEE ,EYE SURGERY A CHILD,LASIK Past Anesthesia/Blood Transfusion Reactions: No Reported Reaction Past Psychological History: No Psychological Hx Reported Smoking Status: Former smoker Past Alcohol Use History: Daily Past Drug Use History: None Reported - Past Family History Mother Family Medical History: No Reported History Medications and Allergies Home Medications Medication Instructions Recorded Confirmed Type Fluticasone Nasal [place] [Flonase 2 spray EA NOSTRIL DAILY 07/14/16 06/01/22 History Nasal [place]] Multivitamins, Thera [Multivitamin] 1 tab PO DAILY 07/14/16 06/01/22 History Aspirin 81 mg PO DAILY 01/06/18 06/01/22 History Atorvastatin [Lipitor] 20 mg PO HS 06/01/22 06/01/22 History Cholecalciferol [Vitamin D3 (25 25 mcg PO DAILY 06/01/22 06/01/22 History Mcg = 1000 Iu)] Ibuprofen [Motrin Ib] 400 mg PO DAILY 06/01/22 06/01/22 History captopriL [Captopril] 25 mg PO DAILY 06/01/22 06/01/22 History hydroCHLOROthiazide 12.5 mg PO DAILY 06/01/22 06/01/22 History Allergies Allergy/AdvReac Type Severity Reaction Status Date / Time No Known Allergies Allergy Verified 06/01/22 08:59 Surgical - Exam Vital Signs Temp Pulse Resp BP Pulse Ox 98.4 F 112 H 18 101/53 97 06/01/22 08:57 06/01/22 08:57 06/01/22 08:57 06/01/22 08:57 06/01/22 08:57 Results - Labs 06/01/22 09:52 06/01/22 09:52 Abnormal Lab Results - Last 24 Hours (Table) 06/01/22 06/01/22 06/01/22 Range/Units 09:52 09:52 10:50 WBC 14.4 H (3.8-10.6) k/uL Neutrophils # 12.2 H (1.3-7.7) k/uL Creatinine 1.44 H (0.66-1.25) mg/dL Glucose 152 H (74-99) mg/dL Total Bilirubin 3.0 H (0.2-1.3) mg/dL Urine Protein 1+ H (Negative) Urine WBC 6 H (0-5) /hpf Amorphous Sediment Few H (None) /hpf Urine Bacteria Rare H (None) /hpf Hyaline Casts 17 H (0-2) /lpf Urine Mucus Rare H (None) /hpf Diabetes panel 06/01/22 Range/Units 09:52 Sodium 137 (137-145) mmol/L Potassium 4.4 (3.5-5.1) mmol/L Chloride 102 (98-107) mmol/L Carbon Dioxide 24 (22-30) mmol/L BUN 20 (9-20) mg/dL Creatinine 1.44 H (0.66-1.25) mg/dL Glucose 152 H (74-99) mg/dL Calcium 8.9 (8.4-10.2) mg/dL AST 35 (17-59) U/L ALT 35 (4-49) U/L Alkaline Phosphatase 125 (38-126) U/L Total Protein 7.1 (6.3-8.2) g/dL Albumin 4.3 (3.5-5.0) g/dL Calcium panel 06/01/22 Range/Units 09:52 Calcium 8.9 (8.4-10.2) mg/dL Albumin 4.3 (3.5-5.0) g/dL Pituitary panel 06/01/22 Range/Units 09:52 Sodium 137 (137-145) mmol/L Potassium 4.4 (3.5-5.1) mmol/L Chloride 102 (98-107) mmol/L Carbon Dioxide 24 (22-30) mmol/L BUN 20 (9-20) mg/dL Creatinine 1.44 H (0.66-1.25) mg/dL Glucose 152 H (74-99) mg/dL Calcium 8.9 (8.4-10.2) mg/dL Adrenal panel 06/01/22 Range/Units 09:52 Sodium 137 (137-145) mmol/L Potassium 4.4 (3.5-5.1) mmol/L Chloride 102 (98-107) mmol/L Carbon Dioxide 24 (22-30) mmol/L BUN 20 (9-20) mg/dL Creatinine 1.44 H (0.66-1.25) mg/dL Glucose 152 H (74-99) mg/dL Calcium 8.9 (8.4-10.2) mg/dL Total Bilirubin 3.0 H (0.2-1.3) mg/dL AST 35 (17-59) U/L ALT 35 (4-49) U/L Alkaline Phosphatase 125 (38-126) U/L Total Protein 7.1 (6.3-8.2) g/dL Albumin 4.3 (3.5-5.0) g/dL
[2022-06-01] MEDS ORDERED: HEPARIN SODIUM,PORCINE/PF 5,000 UNIT/0.5 ML SYRINGE SQ ONE (15:29)
[2022-06-01] MEDS ORDERED: BUPIVACAIN-EPI 0.25%-1:200,000 30 ML VIAL SQ ONE ×2 (15:38→16:25)
[2022-06-01] MEDS ORDERED: ONDANSETRON 4 MG/2 ML VIAL IVP ONE (15:41)
[2022-06-01] MEDS ORDERED: DEXAMETHASONE SOD PHOSPHATE 4 MG/ML 1 ML VIAL IV ONE (15:42)
[2022-06-01] MEDS ORDERED: HEPARIN SODIUM,PORCINE 5,000 UNIT/ML 1 ML VIAL SQ ONE (15:48)
[2022-06-01] MEDS ORDERED: LACTATED RINGERS 1,000 ML IV ONE ×2 (15:48→16:45)
[2022-06-01] MEDS ORDERED: MIDAZOLAM 2 MG/2 ML VIAL ONE (16:05)
[2022-06-01] MEDS ORDERED: GLYCOPYRROLATE 0.2 MG/ML 2 ML VIAL ONE (16:05)
[2022-06-01] MEDS ORDERED: NEOSTIGMINE 1 MG/ML 10 ML VIAL ONE (16:05)
[2022-06-01] MEDS ORDERED: LIDOCAINE 2% INJ 20 MG/ML (2 ML VIAL) ONE (16:05)
[2022-06-01] MEDS ORDERED: HYDROmorphone (PF) 1 MG/ML ONE (16:05)
[2022-06-01] MEDS ORDERED: fentaNYL (PF) 50 MCG/ML 2 ML AMP ONE (16:05)
[2022-06-01] MEDS ORDERED: SUCCINYLCHOLINE CHLORIDE 200 MG/10 ML VIAL IV ONE (16:05)
[2022-06-01] MEDS ORDERED: PROPOFOL 10 MG/ML 20 ML VIAL IV ONE (16:05)
[2022-06-01] MEDS ORDERED: ROCURONIUM 10 MG/ML (5 ML VIAL) IV ONE (16:05)
[2022-06-01] MEDS ORDERED: HYDROmorphone 1 MG/ML 1 ML SYRINGE IVP PRN (16:58)
[2022-06-01] MEDS ORDERED: ACETAMINOPHEN IV (For NPO) 1,000 MG in SALINE 1 100ML.BAG IVPB STA (16:58)
--- NOTE | 2022-06-01 16:58 | P.OP ---
Date of Procedure: 06/01/22 Preoperative Diagnosis: Acute appendicitis Postoperative Diagnosis: Gangrenous appendicitis Procedure(s) Performed: Open appendectomy Anesthesia: AARON Surgeon: Ronen Ricardo Estimated Blood Loss (ml): 25 Pathology: other (Appendix) Condition: stable Disposition: PACU Description of Procedure: The patient's placed on the operating table in the supine position. The patient received general anesthesia. The abdomen was prepped and draped in the usual sterile fashion. The skin was anesthetized 1% local Xylocaine at the trocar sites. Using an 11 blade the skin was incised at the umbilicus. The umbilicus was grasped with a [place] clamp and then a Veress needle was placed into the peritoneal cavity. Position of the Veress needle was confirmed with positive drop test. After adequate insufflation a 5 mm trocar was placed into the peritoneal cavity. The abdomen was further insufflated. And then the laparoscope was placed in the peritoneal cavity. Next a 5 mm trocar was placed in the midline suprapubic position. And then a 10 mm trocar was placed in the midline epigastric position. The patient was rotated with the right side up and in Trendelenburg. The appendix was visualized. The appendix appeared to be grossly inflamed in the retroperitoneal position. Due to the significant inflammatory response this could not be dissected safely. At this point the procedure was converted to an open procedure. The trochars withdrawn. The skin was incised midline. And then the abdominal wall was divided with left cautery. A bilateral traction placed a wound. The right colon was then brought up in the wound. The appendix appeared to be necr otic. The appendix was dissected free and the base of the appendix was transected with a GI stapler. The mesoappendix was divided with the Harmonic scissors. The presence of pathology. The abdomen was irrigated. There is no bleeding seen. A HELLEN drains placed into the right lower quadrant brought out through separate stab incision. The fascia is closed loop #1 PDS suture. Skin closed mera. Patient top she will was sent to recovery in stable condition.
[2022-06-01] MEDS ORDERED: HYDROmorphone 0.5 MG/0.5 ML SYRINGE IVP ONE ×2 (17:23→17:30)
[2022-06-01] MEDS: PIPERACILLIN-TAZOBACTAM 3.375 GM in SODIUM CHLORIDE 0.9% 100 ML IVPB SCH (21:04)
[2022-06-02] MEDS: PIPERACILLIN-TAZOBACTAM 3.375 GM in SODIUM CHLORIDE 0.9% 100 ML IVPB SCH ×4 (00:03→23:39)
[2022-06-02] MEDS: HYDROmorphone 0.5 MG/0.5 ML SYRINGE IVP PRN ×3 (01:53→19:41)
[2022-06-02] MEDS: ENOXAPARIN 40 MG/0.4 ML SYRINGE SQ SCH (08:23)
[2022-06-02 08:58] LABS: Basophils % (A) 0 %; Eosinophils % (A) 0 %; HCT 38.3 % (39.0-53.0); HGB 13.1 gm/dL (13.0-17.5); Lymphocytes # (A) 0.8 k/uL (1.0-4.8); Lymphocytes % (A) 6 %; MCH 32.4 pg (25.0-35.0); MCHC 34.1 g/dL (31.0-37.0); MCV 95.1 fL (80.0-100.0); Mean Platelet Volume 8.5; Monocytes % (A) 8 %; Neutrophils # (A) 10.6 k/uL (1.3-7.7); Neutrophils % (A) 84 %; Platelet Count 326 k/uL (150-450); RBC 4.03 m/uL (4.30-5.90); RDW 12.4 % (11.5-15.5); WBC 12.6 k/uL (3.8-10.6)
[2022-06-02 09:10] LABS: African American GFR (CKD) >90 (>60 ml/min/1.73 sqM); Anion Gap 9 mmol/L; Blood Urea Nitrogen 20 mg/dL (9-20); Calcium 8.1 mg/dL (8.4-10.2); Carbon Dioxide 26 mmol/L (22-30); Chloride 102 mmol/L (98-107); Glucose 163 mg/dL (74-99); Non-African American GFR(CKD) 89 (>60 ml/min/1.73 sqM); Potassium 4.2 mmol/L (3.5-5.1); Sodium 137 mmol/L (137-145)
[2022-06-02] MEDS ORDERED: SODIUM CHLORIDE 0.9% 1,000 ML IV ONE (11:24)
[2022-06-02] MEDS ORDERED: THIAMINE 100 MG/ML 2 ML VIAL IM STA (11:25)
[2022-06-02] MEDS ORDERED: LORazepam 1 MG TAB PO PRN ×3 (11:25)
[2022-06-02] MEDS ORDERED: LORazepam 0.5 MG TAB PO PRN (11:25)
[2022-06-02] MEDS: MULTIVITAMINS, THERA 1 EACH TAB PO SCH (12:12)
[2022-06-02] MEDS: FOLIC ACID 1 MG TAB PO SCH (12:12)
[2022-06-02] MEDS: FLUTICASONE 50MCG/SPRAY NASAL 16GM EA NOSTRIL SCH (12:12)
--- NOTE | 2022-06-02 14:24 | P.PN ---
Subjective Progress Note Date: 06/02/22 CHIEF COMPLAINT: Gangrenous appendicitis HISTORY OF PRESENT ILLNESS: Patient is postop day #1 status post open appendectomy. Patient reports his pain is controlled. He does have more pain with movement. Denies any nausea or vomiting. Denies any bowel activity. Afebrile. Patient has been tachycardic. Patient reports that his urine output is dark. Currently on a clear liquid diet. On 4 L and 93%. WBC is down from 14.4-12.6 hemoglobin 13.1 symptoms with resolved potassium 4.2 creatinine is dioni n from 1.44-0.8 Patient seen and examined with Dr. Ricardo PHYSICAL EXAM: VITAL SIGNS: Reviewed. GENERAL: Well-developed in no acute distress. HEENT: No sclera icterus. Extraocular movements grossly intact. Moist buccal mucosa. Head is atraumatic, normocephalic. ABDOMEN: Soft. Nondistended. Tender incision site NEUROLOGIC: Alert and oriented. Cranial nerves II through XII grossly intact. ASSESSMENT: 1. Gangrenous appendicitis status post open appendectomy 2. Daily alcohol use PLAN: -1 L bolus ordered for urine being dark concentrated -Continue pain management -Continue clear liquid diet -CIWA protocol ordered for alcohol withdrawal -Encouraged patient to use incentive spirometer -Encouraged patient to increase activity level -Continue antibiotics -DVT prophylaxis Lovenox and GI prophylaxis Pepcid Physician Painter [employer]dnance note has been reviewed by physician. Signing provider agrees with the documented findings, assessment, and plan of care. Objective - Vital Signs Vital signs: Vital Signs Temp 97.5 F L 06/02/22 11:46 Pulse 96 06/02/22 11:46 Resp 20 06/02/22 11:46 BP 169/80 06/02/22 11:46 Pulse Ox 93 L 06/02/22 11:46 FiO2 Intake & Output 06/01/22 06/02/22 06/02/22 18:59 06:59 18:59 Intake Total 1200 890 Output Total 25 300 Balance 1175 890 -300 Weight 108.862 kg 108.862 kg Intake: IV 1200 650 Oral 240 Output: Urine 300 Estimated Blood Loss 25 Other: # Voids 1 1 - Labs CBC & Chem 7: 06/02/22 08:31 06/02/22 08:31 Labs: Abnormal Lab Results - Last 24 Hours (Table) 06/02/22 06/02/22 Range/Units 08:31 08:31 WBC 12.6 H (3.8-10.6) k/uL RBC 4.03 L (4.30-5.90) m/uL Hct 38.3 L (39.0-53.0) % Neutrophils # 10.6 H (1.3-7.7) k/uL Lymphocytes # 0.8 L (1.0-4.8) k/uL Glucose 163 H (74-99) mg/dL Calcium 8.1 L (8.4-10.2) mg/dL Microbiology - Last 24 Hours (Table) 06/01/22 11:45 Blood Culture - Preliminary Blood No Growth after 24 hours
[2022-06-02] MEDS: SODIUM CHLORIDE 0.9% 1,000 ML IV SCH (15:32)
--- NOTE | 2022-06-02 15:54 | P.CONS ---
History of Present Illness - Reason for Consult Consult date: 06/02/22 Medical management Requesting physician: Ronen Ricardo - Chief Complaint Abdominal pain - History of Present Illness This is a pleasant 66-year-old patient, follows with Dr. Nguyen. 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 Progressively got worse. Decreased appetite. No nausea vomiting. Developed chills. Symptoms became worse. Presented to the ER. Computed tomography scan showed appendicitis. Patient was taken to the OR yesterday. Found to have gangrenous appendicitis. Followed by open cholecystectomy. Patient was nothing by mouth overnight. This morning started on clear liquids by surgery. Some abdominal pain. Review of systems: GEN.: Tired EYES: [Left lazy eye HEENT: None NECK: None RESPIRATORY: None CARDIOVASCULAR: None GASTROINTESTINAL: None GENITOURINARY: None MUSCULOSKELETAL: Joint pains LYMPHATICS: None HEMATOLOGICAL: None PSYCHIATRY: None NEUROLOGICAL: None Past medical history to include: Decreased hearing in right ear, hypertension, hyperlipidemia, osteoarthritis 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 Smoked for 41 years stopped in 2012. One pack a day. Family history: Reviewed, noncontributory to presentation Physical examination: VITAL SIGNS: 98, 99, 16, 1 32 x 72, 91% on 3 L GENERAL: BMI 35.4, declining but awake not in distress. EYES: Pupils equal. Conjunctiva normal. HEENT: External appearance of nose and ears normal, oral cavity grossly normal. NECK: JVD not raised; masses not palpable. HEART: First and second heart sounds are normal; no edema. LUNGS: Respiratory rate normal; decreased breath sound. ABDOMEN: Soft, mild tenderness, liver spleen not palpable, no masses palpable. PSYCH: Alert and oriented x3; mood and affect normal. MUSCULOSKELETAL:No Clubbing/cyanosis;muscles-grossly intact. OA NEUROLOGICAL: Cranial nerves grossly intact; no facial asymmetry, power and sensation grossly intact. LYMPHATICS: No lymph nodes palpable in the axilla and neck INVESTIGATIONS, reviewed in the clinical context: WBC 12.60 globin 30.1 platelets 326 potassium 4.2 creatinine 0.87 Admission labs: White count 14.4 hemoglobin 14.7 potassium 4.[address] abdomen: Uncomplicated appendicitis. Hepatic steatosis Assessment and plan: -Acute gangrenous appendicitis Open appendectomy done on June [address] Ricardo. IV Zosyn. Clear liquids. IV fluids -Obesity BMI 35.4 Weight loss measures -Hyperlipidemia Lipitor -Essential hypertension Captopril -Left eye strabismus -Primary osteoarthritis Pain medications when necessary Clear liquid diet. IV Zosyn. Activity as tolerated. Resume home medications. Discussed with the patient and at the bedside. Questions answered. Thank you Dr. Ricardo. Past Medical History Past Medical History: Hearing Disorder / Deafness, Hyperlipidemia, Hypertension, Osteoarthritis (OA) Additional Past Medical History / Comment(s): RIGHT EAR- HARD OF HEARING History of Any Multi-Drug Resistant Organisms: None Reported Past Surgical History: Joint Replacement Additional Past Surgical History / Comment(s): LEFT KNEE ARTHROTOMY,TOTAL LEFT KNEE ,EYE SURGERY A CHILD,LASIK, open appey 05/2022 Past Anesthesia/Blood Transfusion Reactions: No Reported Reaction Past Psychological History: No Psychological Hx Reported Smoking Status: Former smoker Past Alcohol Use History: Daily Additional Past Alcohol Use History / Comment(s): STARTED SMOKING AT AGE 16 QUIT MAY 2013 SMOKED 1 PPD. DRINKS 3-4 CANS OF BEER A DAY Past Drug Use History: None Reported - Past Family History Mother Family Medical History: No Reported History Medications and Allergies Home Medications Medication Instructions Recorded Confirmed Type Fluticasone Nasal [place] [Flonase 2 spray EA NOSTRIL DAILY 07/14/16 06/01/22 History Nasal [place]] Multivitamins, Thera [Multivitamin] 1 tab PO DAILY 07/14/16 06/01/22 History Aspirin 81 mg PO DAILY 01/06/18 06/01/22 History Atorvastatin [Lipitor] 20 mg PO HS 06/01/22 06/01/22 History Cholecalciferol [Vitamin D3 (25 25 mcg PO DAILY 06/01/22 06/01/22 History Mcg = 1000 Iu)] Ibuprofen [Motrin Ib] 400 mg PO DAILY 06/01/22 06/01/22 History captopriL [Captopril] 25 mg PO DAILY 06/01/22 06/01/22 History hydroCHLOROthiazide 12.5 mg PO DAILY 06/01/22 06/01/22 History Allergies Allergy/AdvReac Type Severity Reaction Status Date / Time No Known Allergies Allergy Verified 06/01/22 08:59 Physical Exam Vitals: Vital Signs Temp Pulse Pulse Pulse Resp BP BP 06/02/22 04:05 98.0 F 99 16 06/01/22 21:49 107 H 17 06/01/22 20:21 97.5 F L 122 H 17 06/01/22 19:30 125 H 16 06/01/22 19:00 123 H 16 06/01/22 18:45 121 H 16 06/01/22 18:30 120 H 18 06/01/22 18:15 121 H 16 06/01/22 18:00 119 H 18 06/01/22 17:51 118 H 18 06/01/22 17:36 114 H 16 06/01/22 17:21 116 H 20 06/01/22 17:06 97 F L 128 H 16 06/01/22 15:32 98.6 F 90 16 136/72 06/01/22 15:25 18 06/01/22 15:15 98.9 F 06/01/22 14:47 87 18 117/76 06/01/22 11:55 85 18 136/76 BP Pulse Ox 06/02/22 04:05 132/72 91 L 06/01/22 21:49 06/01/22 20:21 162/90 92 L 06/01/22 19:30 125/74 90 L 06/01/22 19:00 141/82 96 06/01/22 18:45 146/87 94 L 06/01/22 18:30 168/85 95 06/01/22 18:15 150/81 95 06/01/22 18:00 157/77 95 06/01/22 17:51 168/85 94 L 06/01/22 17:36 142/79 95 06/01/22 17:21 165/72 92 L 06/01/22 17:06 160/80 98 06/01/22 15:32 93 L 06/01/22 15:25 06/01/22 15:15 06/01/22 14:47 95 06/01/22 11:55 98 Intake and Output 06/01/22 06/02/22 06/02/22 22:59 06:59 14:59 Intake Total 2090 Output Total 25 300 Balance 2064 - Intake: IV 1850 Oral 240 Output: Urine 300 Estimated Blood Loss 25 Other: # Voids 1 1 Weight 108.862 kg Results CBC & Chem 7: 06/02/22 08:31 06/02/22 08:31 Labs: Abnormal Lab Results - Last 24 Hours (Table) 06/01/22 06/01/22 06/02/22 Range/Units 09:52 10:50 08:31 WBC 12.6 H (3.8-10.6) k/uL RBC 4.03 L (4.30-5.90) m/uL Hct 38.3 L (39.0-53.0) % Neutrophils # 10.6 H (1.3-7.7) k/uL Lymphocytes # 0.8 L (1.0-4.8) k/uL Creatinine 1.44 H (0.66-1.25) mg/dL Glucose 152 H (74-99) mg/dL Calcium (8.4-10.2) mg/dL Total Bilirubin 3.0 H (0.2-1.3) mg/dL Urine Protein 1+ H (Negative) Urine WBC 6 H (0-5) /hpf Amorphous Sediment Few H (None) /hpf Urine Bacteria Rare H (None) /hpf Hyaline Casts 17 H (0-2) /lpf Urine Mucus Rare H (None) /hpf 06/02/22 Range/Units 08:31 WBC (3.8-10.6) k/uL RBC (4.30-5.90) m/uL Hct (39.0-53.0) % Neutrophils # (1.3-7.7) k/uL Lymphocytes # (1.0-4.8) k/uL Creatinine (0.66-1.25) mg/dL Glucose 163 H (74-99) mg/dL Calcium 8.1 L (8.4-10.2) mg/dL Total Bilirubin (0.2-1.3) mg/dL Urine Protein (Negative) Urine WBC (0-5) /hpf Amorphous Sediment (None) /hpf Urine Bacteria (None) /hpf Hyaline Casts (0-2) /lpf Urine Mucus (None) /hpf
[2022-06-02] MEDS: ATORVASTATIN 20 MG TAB PO SCH (20:30)
[2022-06-02] MEDS: FAMOTIDINE 20 MG TAB PO SCH (20:30)
[2022-06-03] MEDS: SODIUM CHLORIDE 0.9% 1,000 ML IV SCH ×2 (04:29→18:02)
[2022-06-03] MEDS: FLUTICASONE 50MCG/SPRAY NASAL 16GM EA NOSTRIL SCH (08:35)
[2022-06-03] MEDS: ENOXAPARIN 40 MG/0.4 ML SYRINGE SQ SCH (08:35)
[2022-06-03] MEDS: MULTIVITAMINS, THERA 1 EACH TAB PO SCH (08:36)
[2022-06-03] MEDS: THIAMINE 100 MG TAB PO SCH (08:36)
[2022-06-03] MEDS: FOLIC ACID 1 MG TAB PO SCH (08:36)
[2022-06-03] MEDS: PIPERACILLIN-TAZOBACTAM 3.375 GM in SODIUM CHLORIDE 0.9% 100 ML IVPB SCH ×3 (08:36→23:37)
[2022-06-03] MEDS: FAMOTIDINE 20 MG TAB PO SCH ×2 (08:36→20:04)
[2022-06-03 09:20] LABS: Basophils # (A) 0.06 X 10*3/uL (0.00-0.10); Basophils % (A) 0.5 %; Eosinophils # (A) 0.01 X 10*3/uL (0.04-0.35); Eosinophils % (A) 0.1 %; HCT 35.1 % (39.6-50.0); HGB 11.8 g/dL (13.0-17.0); Immature Grans, Automated 1.4 %; Lymphocytes # (A) 0.68 X 10*3/uL (0.90-5.00); Lymphocytes % (A) 6.1 %; MCH 32.5 pg (27.0-32.0); MCHC 33.6 g/dL (32.0-37.0); MCV 96.7 fL (80.0-97.0); Mean Platelet Volume 10.5 fL (9.5-12.2); Monocytes # (A) 0.99 X 10*3/uL (0.20-1.00); Monocytes % (A) 8.9 %; NRBC Per 100 WBC 0 /100 WBCS (0.0-0.0); Neutrophils # (A) 9.21 X 10*3/uL (1.80-7.70); Platelet Count 313 X 10*3/uL (140-440); RBC 3.63 X 10*6/uL (4.40-5.60); RDW 12.1 % (11.5-14.5)
--- NOTE | 2022-06-03 12:06 | P.PN ---
Progress Note - Text Progress Note Date: 06/03/22 The patient appears to be comfortable. He is actually up walking. He has had no significant bowel function. On exam vital signs are stable. Abdomen is soft. Incisions clean dry intact. Status post open appendectomy for acute gangrenous retrocecal appendix. Patient will continue receive supportive care. He'll have his diet advanced once his bowel function returns.
--- NOTE | 2022-06-03 17:08 | P.PN ---
Progress Note - Text Progress Note Date: 06/03/22 - Chief Complaint Abdominal pain Hospital course: This is a pleasant 66-year-old patient, follows with Dr. Nguyen. 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 Progressively got worse. Decreased appetite. No nausea vomiting. Developed chills. Symptoms became worse. Presented to the ER. Computed tomography scan showed appendicitis. Patient was taken to the OR yesterday. Found to have gangrenous appendicitis. Followed by open cholecystectomy. Patient was nothing by mouth overnight. This morning started on clear liquids by surgery. Some abdominal pain. 06/03/2022: Seen by me this morning. Abdominal pain control. HELLEN drain in place. On clear liquids. Did walk in the hallway. Encouraged to sit up in a chair and ambulate more. Discussed with the patient and . No flatus. Active Medications Hydrocodone Bitart/Acetaminophen (Hydrocodone/Apap 5-325mg 1 Each Tab) 1 each PO Q4HR PRN PRN Reason: Pain Atorvastatin Calcium (Atorvastatin 20 Mg Tab) 20 mg PO HS [facility] Last Admin: 06/02/22 20:30 Dose: 20 mg Captopril (Captopril 25 Mg Tab) 25 mg PO DAILY [facility] Last Admin: 06/03/22 08:36 Dose: 25 mg Enoxaparin Sodium (Enoxaparin 40 Mg/0.4 Ml Syringe) 40 mg SQ DAILY [facility] Last Admin: 06/03/22 08:35 Dose: 40 mg Famotidine (Famotidine 20 Mg Tab) 20 mg PO BID [facility] Last Admin: 06/03/22 08:36 Dose: 20 mg Fluticasone Propionate (Fluticasone 50mcg/[place] Nasal 16gm) 2 spray EA NOSTRIL DAILY [facility] Last Admin: 06/03/22 08:35 Dose: 2 spray Folic Acid (Folic Acid 1 Mg Tab) 1 mg PO DAILY [facility] Last Admin: 06/03/22 08:36 Dose: 1 mg Hydromorphone HCl (Hydromorphone 0.5 Mg/0.5 Ml Syringe) 0.5 mg IVP Q3HR PRN PRN Reason: Pain Mild-Moderate Last Admin: 06/02/22 19:41 Dose: 0.5 mg Hydromorphone HCl (Hydromorphone 1 Mg/Ml 1 Ml Syringe) 1 mg IVP Q1HR PRN PRN Reason: Severe Pain (Scale 7 to 10) Sodium Chloride (Saline 0.9%) 1,000 mls @ 75 mls/hr IV .[id number] [facility] Last Admin: 06/03/22 04:29 Dose: Not Given Piperacillin Sod/Tazobactam (Sod 3.375 gm/ Sodium Chloride) 100 mls @ 25 mls/hr IVPB Q8HR [facility]; Protocol Last Admin: 06/03/22 08:36 Dose: 25 mls/hr Lorazepam (Lorazepam 0.5 Mg Tab) 0.5 mg PO Q4HR PRN PRN Reason: [place] 4 To 5 Lorazepam (Lorazepam 1 Mg Tab) 1 mg PO Q4HR PRN PRN Reason: [place] 6 To 7 Lorazepam (Lorazepam 1 Mg Tab) 2 mg PO Q2HR PRN PRN Reason: [place] 10 or greater Lorazepam (Lorazepam 1 Mg Tab) 2 mg PO Q3HR PRN PRN Reason: [place] 8 To 9 Multivitamins (Multivitamins, Thera 1 Each Tab) 1 each PO DAILY [facility] Last Admin: 06/03/22 08:36 Dose: 1 each Naloxone HCl (Naloxone 0.4 Mg/Ml 1 Ml Vial) 0.2 mg IV Q2M PRN PRN Reason: Opioid Reversal Ondansetron HCl (Ondansetron 4 Mg/2 Ml Vial) 4 mg IVP Q8HR PRN PRN Reason: Nausea And Vomiting Thiamine HCl (Thiamine 100 Mg Tab) 100 mg PO DAILY [facility] Last Admin: 06/03/22 08:36 Dose: 100 mg Past medical history to include: Decreased hearing in right ear, hypertension, hyperlipidemia, osteoarthritis 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 Smoked for 41 years stopped in 2012. One pack a day. Family history: Reviewed, noncontributory to presentation Physical examination: VITAL SIGNS: 97.8, 89, 18, 135 with 76, 96% on 3 L GENERAL: Reclining in bed, awake, comfortable EYES: Pupils equal. Conjunctiva normal. Left eye strabismus HEENT: External appearance of nose and ears normal, oral cavity grossly normal. NECK: JVD not raised; masses not palpable. HEART: First and second heart sounds are normal; no edema. LUNGS: Respiratory rate normal; decreased breath sound. ABDOMEN: Soft, mild tenderness, liver spleen not palpable, no masses palpable. HELLEN drain on right side PSYCH: Alert and oriented x3; mood and affect normal. MUSCULOSKELETAL:No Clubbing/cyanosis;muscles-grossly intact. OA INVESTIGATIONS, reviewed in the clinical context: 06/03/2022: WBC 11.1 hemoglobin 11.8 platelets 313 WBC 12.60 globin 30.1 platelets 326 potassium 4.2 creatinine 0.87 Admission labs: White count 14.4 hemoglobin 14.7 potassium 4.[address] abdomen: Uncomplicated appendicitis. Hepatic steatosis Assessment and plan: -Acute gangrenous appendicitis Open appendectomy done on June [address] Ricardo. IV Zosyn. Clear liquids. IV fluids -Obesity BMI 35.4 Weight loss measures -Hyperlipidemia Lipitor -Essential hypertension Captopril -Left eye strabismus -Primary osteoarthritis Pain medications when necessary Clear liquid diet. IV Zosyn. Encouraged to sit up in a chair increase activity. Chewing gum. Other medications to continue. Discussed. Thank you
[2022-06-03] MEDS: ATORVASTATIN 20 MG TAB PO SCH (20:04)
[2022-06-03] MEDS: HYDROcodone/APAP 5-325MG 1 EACH TAB PO PRN (20:04)
[2022-06-04] MEDS: SODIUM CHLORIDE 0.9% 1,000 ML IV SCH ×2 (05:45→21:58)
[2022-06-04] MEDS: THIAMINE 100 MG TAB PO SCH (08:53)
[2022-06-04] MEDS: MULTIVITAMINS, THERA 1 EACH TAB PO SCH (08:53)
[2022-06-04] MEDS: FLUTICASONE 50MCG/SPRAY NASAL 16GM EA NOSTRIL SCH (08:53)
[2022-06-04] MEDS: PIPERACILLIN-TAZOBACTAM 3.375 GM in SODIUM CHLORIDE 0.9% 100 ML IVPB SCH ×3 (08:53→23:58)
[2022-06-04] MEDS: FAMOTIDINE 20 MG TAB PO SCH ×2 (08:53→21:51)
[2022-06-04] MEDS: FOLIC ACID 1 MG TAB PO SCH (08:53)
[2022-06-04] MEDS: ENOXAPARIN 40 MG/0.4 ML SYRINGE SQ SCH (08:54)
--- NOTE | 2022-06-04 11:47 | P.PN ---
Subjective Progress Note Date: 06/04/22 Principal diagnosis: Ruptured appendicitis Patient doing better today. He is passing flatus yesterday and again today. No nausea or vomiting. Pain seems to be slowly improving. HELLEN draining serous. White blood cell count improved. Objective - Vital Signs Vital signs: Vital Signs Temp 97.7 F 06/04/22 04:02 Pulse 100 06/04/22 04:02 Resp 18 06/04/22 06:05 BP 165/70 06/04/22 04:02 Pulse Ox 94 L 06/04/22 06:05 FiO2 Intake & Output 06/03/22 06/04/22 06/04/22 18:59 06:59 18:59 Output Total 100 100 Balance -100 -100 Output: Drainage 100 100 Abdomen 100 100 Other: # Voids 5 - Exam Abdomen: Soft, mild distention, incision clean and dry, HELLEN drain in place - Labs CBC & Chem 7: 06/03/22 06:07 06/02/22 08:31 Labs: Microbiology - Last 24 Hours (Table) 06/01/22 12:25 Blood Culture - Preliminary Blood No Growth after 48 hours 06/01/22 11:45 Blood Culture - Preliminary Blood No Growth after 48 hours Assessment and Plan (1) Acute appendicitis Narrative/Plan: 66-year-old male with ruptured appendicitis. Patient required open appendectomy. Continue IV antibiotics. Advance to full liquid diet. Ambulate. Keep drain in place. Current Visit: Yes Status: Acute Code(s): K35.80 - UNSPECIFIED ACUTE APPENDICITIS SNOMED Code(s): 58111603
--- NOTE | 2022-06-04 15:21 | P.PN ---
Progress Note - Text Progress Note Date: 06/04/22 - Chief Complaint Abdominal pain Hospital course: This is a pleasant 66-year-old patient, follows with Dr. Nguyen. 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 Progressively got worse. Decreased appetite. No nausea vomiting. Developed chills. Symptoms became worse. Presented to the ER. Computed tomography scan showed appendicitis. Patient was taken to the OR yesterday. Found to have gangrenous appendicitis. Followed by open cholecystectomy. Patient was nothing by mouth overnight. This morning started on clear liquids by surgery. Some abdominal pain. 06/03/2022: Seen by me this morning. Abdominal pain control. HELLEN drain in place. On clear liquids. Did walk in the hallway. Encouraged to sit up in a chair and ambulate more. Discussed with the patient and . No flatus. 06/04/2022: Patient's potassium flatus. Did ambulate in the hallway. On clear liquid diet. HELLEN drain. Discussed with the patient and . Active Medications Hydrocodone Bitart/Acetaminophen (Hydrocodone/Apap 5-325mg 1 Each Tab) 1 each PO Q4HR PRN PRN Reason: Pain Last Admin: 06/03/22 20:04 Dose: 1 each Atorvastatin Calcium (Atorvastatin 20 Mg Tab) 20 mg PO HS [facility] Last Admin: 06/03/22 20:04 Dose: 20 mg Captopril (Captopril 25 Mg Tab) 25 mg PO DAILY [facility] Last Admin: 06/04/22 08:53 Dose: 25 mg Enoxaparin Sodium (Enoxaparin 40 Mg/0.4 Ml Syringe) 40 mg SQ DAILY [facility] Last Admin: 06/04/22 08:54 Dose: 40 mg Famotidine (Famotidine 20 Mg Tab) 20 mg PO BID [facility] Last Admin: 06/04/22 08:53 Dose: 20 mg Fluticasone Propionate (Fluticasone 50mcg/[place] Nasal 16gm) 2 spray EA NOSTRIL DAILY [facility] Last Admin: 06/04/22 08:53 Dose: 2 spray Folic Acid (Folic Acid 1 Mg Tab) 1 mg PO DAILY [facility] Last Admin: 06/04/22 08:53 Dose: 1 mg Hydromorphone HCl (Hydromorphone 0.5 Mg/0.5 Ml Syringe) 0.5 mg IVP Q3HR PRN PRN Reason: Pain Mild-Moderate Last Admin: 06/02/22 19:41 Dose: 0.5 mg Hydromorphone HCl (Hydromorphone 1 Mg/Ml 1 Ml Syringe) 1 mg IVP Q1HR PRN PRN Reason: Severe Pain (Scale 7 to 10) Sodium Chloride (Saline 0.9%) 1,000 mls @ 75 mls/hr IV .[id number] [facility] Last Admin: 06/04/22 05:45 Dose: 75 mls/hr Piperacillin Sod/Tazobactam (Sod 3.375 gm/ Sodium Chloride) 100 mls @ 25 mls/hr IVPB Q8HR [facility]; Protocol Last Admin: 06/04/22 08:53 Dose: 25 mls/hr Lorazepam (Lorazepam 0.5 Mg Tab) 0.5 mg PO Q4HR PRN PRN Reason: [place] 4 To 5 Lorazepam (Lorazepam 1 Mg Tab) 1 mg PO Q4HR PRN PRN Reason: [place] 6 To 7 Lorazepam (Lorazepam 1 Mg Tab) 2 mg PO Q2HR PRN PRN Reason: [place] 10 or greater Lorazepam (Lorazepam 1 Mg Tab) 2 mg PO Q3HR PRN PRN Reason: [place] 8 To 9 Multivitamins (Multivitamins, Thera 1 Each Tab) 1 each PO DAILY [facility] Last Admin: 06/04/22 08:53 Dose: 1 each Naloxone HCl (Naloxone 0.4 Mg/Ml 1 Ml Vial) 0.2 mg IV Q2M PRN PRN Reason: Opioid Reversal Ondansetron HCl (Ondansetron 4 Mg/2 Ml Vial) 4 mg IVP Q8HR PRN PRN Reason: Nausea And Vomiting Thiamine HCl (Thiamine 100 Mg Tab) 100 mg PO DAILY [facility] Last Admin: 06/04/22 08:53 Dose: 100 mg Past medical history to include: Decreased hearing in right ear, hypertension, hyperlipidemia, osteoarthritis 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 Smoked for 41 years stopped in 2012. One pack a day. Family history: Reviewed, noncontributory to presentation Physical examination: VITAL SIGNS: 98, 85, 18, 132/80, 90% on room air GENERAL: Up in a recliner, comfortable EYES: Pupils equal. Conjunctiva normal. Left eye strabismus HEENT: External appearance of nose and ears normal, oral cavity grossly normal. NECK: JVD not raised; masses not palpable. HEART: First and second heart sounds are normal; no edema. LUNGS: Respiratory rate normal; decreased breath sound. ABDOMEN: Soft, mild tenderness, binder in place. HELLEN drain on right side PSYCH: Alert and oriented x3; mood and affect normal. MUSCULOSKELETAL:No Clubbing/cyanosis;muscles-grossly intact. OA INVESTIGATIONS, reviewed in the clinical context: 06/03/2022: WBC 11.1 hemoglobin 11.8 platelets 313 WBC 12.60 globin 30.1 platelets 326 potassium 4.2 creatinine 0.87 Admission labs: White count 14.4 hemoglobin 14.7 potassium 4.[address] abdomen: Uncomplicated appendicitis. Hepatic steatosis Assessment and plan: -Acute gangrenous appendicitis Open appendectomy done on June [address] Ricardo. IV Zosyn. Clear liquids. IV fluids -Obesity BMI 35.4 Weight loss measures -Hyperlipidemia Lipitor -Essential hypertension Captopril -Left eye strabismus -Primary osteoarthritis Pain medications when necessary Clear liquid diet. IV Zosyn. Other medications to continue. Discussed. Thank you
[2022-06-04] MEDS: ATORVASTATIN 20 MG TAB PO SCH (21:51)
[2022-06-04] MEDS: HYDROcodone/APAP 5-325MG 1 EACH TAB PO PRN (21:55)
[2022-06-05] MEDS: FOLIC ACID 1 MG TAB PO SCH (09:14)
[2022-06-05] MEDS: FAMOTIDINE 20 MG TAB PO SCH ×2 (09:14→21:02)
[2022-06-05] MEDS: THIAMINE 100 MG TAB PO SCH (09:14)
[2022-06-05] MEDS: MULTIVITAMINS, THERA 1 EACH TAB PO SCH (09:14)
[2022-06-05] MEDS: ENOXAPARIN 40 MG/0.4 ML SYRINGE SQ SCH (09:14)
[2022-06-05] MEDS: PIPERACILLIN-TAZOBACTAM 3.375 GM in SODIUM CHLORIDE 0.9% 100 ML IVPB SCH ×2 (09:14→18:23)
[2022-06-05] MEDS: FLUTICASONE 50MCG/SPRAY NASAL 16GM EA NOSTRIL SCH (09:15)
--- NOTE | 2022-06-05 11:24 | P.PN ---
Subjective Progress Note Date: 06/05/22 Principal diagnosis: Ruptured appendicitis Patient is doing better today. Tolerating diet. He has having bowel movements now. HELLEN draining serosanguineous. Mild bloating. No nausea or vomiting. Objective - Vital Signs Vital signs: Vital Signs Temp 98.4 F 06/05/22 05:00 Pulse 75 06/05/22 05:00 Resp 16 06/05/22 05:00 BP 150/79 06/05/22 05:00 Pulse Ox 92 L 06/05/22 05:00 FiO2 Intake & Output 06/04/22 06/05/22 06/05/22 18:59 06:59 18:59 Intake Total 590 Output Total 65 65 35 Balance -65 525 -35 Intake: Oral 590 Output: Drainage 65 65 35 Abdomen 65 65 35 Other: # Voids 3 2 # Bowel Movements 0 - Exam Abdomen: Soft, nondistended, midline incision clean and dry, small area of serous drainage on the dressing, minimal tenderness - Labs CBC & Chem 7: 06/03/22 06:07 06/02/22 08:31 Labs: Microbiology - Last 24 Hours (Table) 06/01/22 12:25 Blood Culture - Preliminary Blood No Growth after 72 hours 06/01/22 11:45 Blood Culture - Preliminary Blood No Growth after 72 hours Assessment and Plan (1) Acute appendicitis Narrative/Plan: Patient seems to be slowly improving clinically. Continue antibiotics. Advance diet. Ambulate. Possible discharge tomorrow or Wednesday. Current Visit: Yes Status: Acute Code(s): K35.80 - UNSPECIFIED ACUTE APPENDICITIS SNOMED Code(s): 94801010
[2022-06-05 13:58] VITALS: RESP 18
[2022-06-05] MEDS: SODIUM CHLORIDE 0.9% 1,000 ML IV SCH (18:22)
--- NOTE | 2022-06-05 20:34 | P.PN ---
Progress Note - Text Progress Note Date: 06/05/22 - Chief Complaint Abdominal pain Hospital course: This is a pleasant 66-year-old patient, follows with Dr. Nguyen. 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 Progressively got worse. Decreased appetite. No nausea vomiting. Developed chills. Symptoms became worse. Presented to the ER. Computed tomography scan showed appendicitis. Patient was taken to the OR yesterday. Found to have gangrenous appendicitis. Followed by open cholecystectomy. Patient was nothing by mouth overnight. This morning started on clear liquids by surgery. Some abdominal pain. 06/03/2022: Seen by me this morning. Abdominal pain control. HELLEN drain in place. On clear liquids. Did walk in the hallway. Encouraged to sit up in a chair and ambulate more. Discussed with the patient and . No flatus. 06/04/2022: had flatus. Did ambulate in the hallway. On clear liquid diet. HELLEN drain. Discussed with the patient and . 06/05/2022: Had bowel movement. Did ambulate. Pain better. HELLEN drain in place. About 60 mL in the last shift. Diet advanced to a ground diet. Feels better. Active Medications Hydrocodone Bitart/Acetaminophen (Hydrocodone/Apap 5-325mg 1 Each Tab) 1 each PO Q4HR PRN PRN Reason: Pain Last Admin: 06/04/22 21:55 Dose: 1 each Atorvastatin Calcium (Atorvastatin 20 Mg Tab) 20 mg PO HS [facility] Last Admin: 06/04/22 21:51 Dose: 20 mg Captopril (Captopril 25 Mg Tab) 25 mg PO DAILY [facility] Last Admin: 06/05/22 09:15 Dose: 25 mg Enoxaparin Sodium (Enoxaparin 40 Mg/0.4 Ml Syringe) 40 mg SQ DAILY [facility] Last Admin: 06/05/22 09:14 Dose: 40 mg Famotidine (Famotidine 20 Mg Tab) 20 mg PO BID [facility] Last Admin: 06/05/22 09:14 Dose: 20 mg Fluticasone Propionate (Fluticasone 50mcg/[place] Nasal 16gm) 2 spray EA NOSTRIL DAILY [facility] Last Admin: 06/05/22 09:15 Dose: 2 spray Folic Acid (Folic Acid 1 Mg Tab) 1 mg PO DAILY [facility] Last Admin: 06/05/22 09:14 Dose: 1 mg Hydromorphone HCl (Hydromorphone 0.5 Mg/0.5 Ml Syringe) 0.5 mg IVP Q3HR PRN PRN Reason: Pain Mild-Moderate Last Admin: 06/02/22 19:41 Dose: 0.5 mg Hydromorphone HCl (Hydromorphone 1 Mg/Ml 1 Ml Syringe) 1 mg IVP Q1HR PRN PRN Reason: Severe Pain (Scale 7 to 10) Sodium Chloride (Saline 0.9%) 1,000 mls @ 50 mls/hr IV .Q20H [facility] Last Admin: 06/05/22 18:22 Dose: 50 mls/hr Piperacillin Sod/Tazobactam (Sod 3.375 gm/ Sodium Chloride) 100 mls @ 25 mls/hr IVPB Q8HR [facility]; Protocol Last Admin: 06/05/22 18:23 Dose: 25 mls/hr Lorazepam (Lorazepam 0.5 Mg Tab) 0.5 mg PO Q4HR PRN PRN Reason: Ciwa 4 To 5 Lorazepam (Lorazepam 1 Mg Tab) 1 mg PO Q4HR PRN PRN Reason: Ci[place] 6 To 7 Lorazepam (Lorazepam 1 Mg Tab) 2 mg PO Q2HR PRN PRN Reason: Ciwa 10 or greater Lorazepam (Lorazepam 1 Mg Tab) 2 mg PO Q3HR PRN PRN Reason: Ciwa 8 To 9 Multivitamins (Multivitamins, Thera 1 Each Tab) 1 each PO DAILY [facility] Last Admin: 06/05/22 09:14 Dose: 1 each Naloxone HCl (Naloxone 0.4 Mg/Ml 1 Ml Vial) 0.2 mg IV Q2M PRN PRN Reason: Opioid Reversal Ondansetron HCl (Ondansetron 4 Mg/2 Ml Vial) 4 mg IVP Q8HR PRN PRN Reason: Nausea And Vomiting Thiamine HCl (Thiamine 100 Mg Tab) 100 mg PO DAILY [facility] Last Admin: 06/05/22 09:14 Dose: 100 mg Past medical history to include: Decreased hearing in right ear, hypertension, hyperlipidemia, osteoarthritis 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 Smoked for 41 years stopped in 2012. One pack a day. Family history: Reviewed, noncontributory to presentation Physical examination: VITAL SIGNS: 98.3, 82, 18, 145 with 79, 90% room air GENERAL: Up in a recliner, comfortable EYES: Pupils equal. Conjunctiva normal. Left eye strabismus HEENT: External appearance of nose and ears normal, oral cavity grossly normal. NECK: JVD not raised; masses not palpable. HEART: First and second heart sounds are normal; no edema. LUNGS: Respiratory rate normal; decreased breath sound. ABDOMEN: Soft, mild tenderness, binder in place. HLELEN drain on right side PSYCH: Alert and oriented x3; mood and affect normal. MUSCULOSKELETAL:No Clubbing/cyanosis;muscles-grossly intact. OA INVESTIGATIONS, reviewed in the clinical context: 06/03/2022: WBC 11.1 hemoglobin 11.8 platelets 313 WBC 12.60 globin 30.1 platelets 326 potassium 4.2 creatinine 0.87 Admission labs: White count 14.4 hemoglobin 14.7 potassium 4.[address] abdomen: Uncomplicated appendicitis. Hepatic steatosis Assessment and plan: -Acute gangrenous appendicitis Open appendectomy done on June [address] Ricardo. IV Zosyn. Clear liquids. IV fluids -Obesity BMI 35.4 Weight loss measures -Hyperlipidemia Lipitor -Essential hypertension Captopril, replaced by lisinopril hydrochlorothiazide -Left eye strabismus -Primary osteoarthritis Pain medications when necessary Diet advanced to ground IV Zosyn. Other medications to continue. Improving. Continue with activity. Replace captopril by lisinopril hydrochlorothiazide Thank you
[2022-06-05] MEDS: HYDROcodone/APAP 5-325MG 1 EACH TAB PO PRN (21:00)
[2022-06-05] MEDS: ATORVASTATIN 20 MG TAB PO SCH (21:02)
[2022-06-05] MEDS: LISINOPRIL-HCTZ 20-12.5 MG 1 EACH TAB PO SCH (21:03)
[2022-06-06] MEDS: PIPERACILLIN-TAZOBACTAM 3.375 GM in SODIUM CHLORIDE 0.9% 100 ML IVPB SCH ×3 (00:49→16:43)
[2022-06-06 06:49] LABS: African American GFR (CKD) >90 (>60 ml/min/1.73 sqM); Anion Gap 6 mmol/L; Blood Urea Nitrogen 12 mg/dL (9-20); Carbon Dioxide 29 mmol/L (22-30); Chloride 102 mmol/L (98-107); Glucose 96 mg/dL (74-99); Non-African American GFR(CKD) 89 (>60 ml/min/1.73 sqM); Potassium 3.8 mmol/L (3.5-5.1); Sodium 137 mmol/L (137-145)
[2022-06-06] MEDS: ENOXAPARIN 40 MG/0.4 ML SYRINGE SQ SCH (08:44)
[2022-06-06] MEDS: THIAMINE 100 MG TAB PO SCH (08:44)
[2022-06-06] MEDS: FOLIC ACID 1 MG TAB PO SCH (08:44)
[2022-06-06] MEDS: LISINOPRIL-HCTZ 20-12.5 MG 1 EACH TAB PO SCH ×2 (08:44→21:40)
[2022-06-06] MEDS: FAMOTIDINE 20 MG TAB PO SCH ×2 (08:44→21:40)
[2022-06-06] MEDS: MULTIVITAMINS, THERA 1 EACH TAB PO SCH (08:44)
[2022-06-06] MEDS: FLUTICASONE 50MCG/SPRAY NASAL 16GM EA NOSTRIL SCH (08:44)
[2022-06-06] MEDS: SODIUM CHLORIDE 0.9% 1,000 ML IV SCH (08:45)
[2022-06-06 09:02] LABS: HCT 33.6 % (39.6-50.0); HGB 11.3 g/dL (13.0-17.0); MCH 31.7 pg (27.0-32.0); MCHC 33.6 g/dL (32.0-37.0); MCV 94.4 fL (80.0-97.0); Mean Platelet Volume 10.1 fL (9.5-12.2); NRBC Per 100 WBC 0 /100 WBCS (0.0-0.0); Platelet Count 368 X 10*3/uL (140-440); RBC 3.56 X 10*6/uL (4.40-5.60); RDW 12.2 % (11.5-14.5); WBC 10.57 X 10*3/uL (4.50-10.00)
[2022-06-06 10:13] LABS: Basophils # (M) 0 X 10*3/uL (0.00-0.10); Eosinophils # (M) 0.63 X 10*3/uL (0.04-0.35); Lymphocytes # (M) 0.85 X 10*3/uL (0.90-5.00); Monocytes # (M) 0.42 X 10*3/uL (0.20-1.00); Myelocytes % 6 % (0-0); Neutrophils # (M) 7.82 X 10*3/uL (2.00-8.90); Neutrophils % (M) 74 %; Promyelocytes # (M) 0.21 k/uL (0); Promyelocytes % 2 % (0-0); RBC Morphology NORMAL
--- NOTE | 2022-06-06 10:30 | P.PN ---
Subjective Progress Note Date: 06/06/22 Principal diagnosis: Ruptured appendicitis Patient doing well today. White blood cell count 10. Tolerating diet. No nausea or vomiting. No significant bowel function since yesterday. Minimal pain. HELLEN drain serosanguineous. Objective - Vital Signs Vital signs: Vital Signs Temp 98.3 F 06/06/22 05:00 Pulse 70 06/06/22 05:00 Resp 18 06/06/22 05:00 BP 121/72 06/06/22 05:00 Pulse Ox 92 L 06/06/22 05:00 FiO2 Intake & Output 06/05/22 06/06/22 06/06/22 18:59 06:59 18:59 Intake Total 500 Output Total 35 70 Balance -35 500 -70 Intake: Oral 500 Output: Drainage 35 70 Abdomen 35 70 Other: # Voids 3 3 - Exam Abdomen: Soft, mild distention, incision with minimal serous drainage, minimal tenderness - Labs CBC & Chem 7: 06/06/22 06:02 06/06/22 06:02 Labs: Abnormal Lab Results - Last 24 Hours (Table) 06/06/22 06/06/22 06/06/22 Range/Units 06:02 06:02 06:02 WBC 10.57 H (4.50-10.00) X 10*3/uL RBC 3.56 L (4.40-5.60) X 10*6/uL Hgb 11.3 L (13.0-17.0) g/dL Hct 33.6 L (39.6-50.0) % Myelocytes % 6 H (0-0) % Promyelocytes % 2 H (0-0) % Lymphocytes # (Manual) 0.85 L (0.90-5.00) X 10*3/uL Eosinophils # (Manual) 0.63 H (0.04-0.35) X 10*3/uL Calcium 8.0 L (8.4-10.2) mg/dL Procalcitonin 0.15 H (0.02-0.09) ng/mL Microbiology - Last 24 Hours (Table) 06/01/22 12:25 Blood Culture - Preliminary Blood No Growth after 96 hours 06/01/22 11:45 Blood Culture - Preliminary Blood No Growth after 96 hours Assessment and Plan (1) Acute appendicitis Narrative/Plan: Patient doing well today. Continue diet as ordered. Continue antibiotics. Ambulate. Possible discharge tomorrow. Current Visit: Yes Status: Acute Code(s): K35.80 - UNSPECIFIED ACUTE APPENDICITIS SNOMED Code(s): 01084185
--- NOTE | 2022-06-06 17:58 | P.PN ---
Progress Note - Text Progress Note Date: 06/06/22 - Chief Complaint Abdominal pain Hospital course: This is a pleasant 66-year-old patient, follows with Dr. Nguyen. 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 Progressively got worse. Decreased appetite. No nausea vomiting. Developed chills. Symptoms became worse. Presented to the ER. Computed tomography scan showed appendicitis. Patient was taken to the OR yesterday. Found to have gangrenous appendicitis. Followed by open cholecystectomy. Patient was nothing by mouth overnight. This morning started on clear liquids by surgery. Some abdominal pain. 06/03/2022: Seen by me this morning. Abdominal pain control. HELLEN drain in place. On clear liquids. Did walk in the hallway. Encouraged to sit up in a chair and ambulate more. Discussed with the patient and . No flatus. 06/04/2022: had flatus. Did ambulate in the hallway. On clear liquid diet. HELLEN drain. Discussed with the patient and . 06/05/2022: Had bowel movement. Did ambulate. Pain better. HELLEN drain in place. About 60 mL in the last shift. Diet advanced to a ground diet. Feels better. 06/06/2022: Had small BM. Current event antibiotic. HELLEN drain in place. Decreased activity. Abdominal pain control. Tolerating ground diet Active Medications Hydrocodone Bitart/Acetaminophen (Hydrocodone/Apap 5-325mg 1 Each Tab) 1 each PO Q4HR PRN PRN Reason: Pain Last Admin: 06/05/22 21:00 Dose: 1 each Atorvastatin Calcium (Atorvastatin 20 Mg Tab) 20 mg PO HS [facility] Last Admin: 06/05/22 21:02 Dose: 20 mg Enoxaparin Sodium (Enoxaparin 40 Mg/0.4 Ml Syringe) 40 mg SQ DAILY [facility] Last Admin: 06/06/22 08:44 Dose: 40 mg Famotidine (Famotidine 20 Mg Tab) 20 mg PO BID [facility] Last Admin: 06/06/22 08:44 Dose: 20 mg Fluticasone Propionate (Fluticasone 50mcg/[place] Nasal 16gm) 2 spray EA NOSTRIL DAILY [facility] Last Admin: 06/06/22 08:44 Dose: 2 spray Folic Acid (Folic Acid 1 Mg Tab) 1 mg PO DAILY [facility] Last Admin: 06/06/22 08:44 Dose: 1 mg Lisinopril/HCTZ (Lisinopril-Hctz 20-12.5 Mg 1 Each Tab) 1 each PO BID [facility] Last Admin: 06/06/22 08:44 Dose: 1 each Hydromorphone HCl (Hydromorphone 0.5 Mg/0.5 Ml Syringe) 0.5 mg IVP Q3HR PRN PRN Reason: Pain Mild-Moderate Last Admin: 06/02/22 19:41 Dose: 0.5 mg Hydromorphone HCl (Hydromorphone 1 Mg/Ml 1 Ml Syringe) 1 mg IVP Q1HR PRN PRN Reason: Severe Pain (Scale 7 to 10) Sodium Chloride (Saline 0.9%) 1,000 mls @ 50 mls/hr IV .Q20H [facility] Last Admin: 06/06/22 08:45 Dose: 50 mls/hr Piperacillin Sod/Tazobactam (Sod 3.375 gm/ Sodium Chloride) 100 mls @ 25 mls/hr IVPB Q8HR [facility]; Protocol Last Admin: 06/06/22 16:43 Dose: 25 mls/hr Lorazepam (Lorazepam 0.5 Mg Tab) 0.5 mg PO Q4HR PRN PRN Reason: Ci[place] 4 To 5 Lorazepam (Lorazepam 1 Mg Tab) 1 mg PO Q4HR PRN PRN Reason: [place] 6 To 7 Lorazepam (Lorazepam 1 Mg Tab) 2 mg PO Q2HR PRN PRN Reason: [place] 10 or greater Lorazepam (Lorazepam 1 Mg Tab) 2 mg PO Q3HR PRN PRN Reason: Ciwa 8 To 9 Multivitamins (Multivitamins, Thera 1 Each Tab) 1 each PO DAILY [facility] Last Admin: 06/06/22 08:44 Dose: 1 each Naloxone HCl (Naloxone 0.4 Mg/Ml 1 Ml Vial) 0.2 mg IV Q2M PRN PRN Reason: Opioid Reversal Ondansetron HCl (Ondansetron 4 Mg/2 Ml Vial) 4 mg IVP Q8HR PRN PRN Reason: Nausea And Vomiting Thiamine HCl (Thiamine 100 Mg Tab) 100 mg PO DAILY [facility] Last Admin: 06/06/22 08:44 Dose: 100 mg Past medical history to include: Decreased hearing in right ear, hypertension, hyperlipidemia, osteoarthritis 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 Smoked for 41 years stopped in 2012. One pack a day. Family history: Reviewed, noncontributory to presentation Physical examination: VITAL SIGNS: 98.2, 78, 18, 97/63, 93% room air GENERAL: Up in a recliner, comfortable EYES: Pupils equal. Conjunctiva normal. Left eye strabismus HEENT: External appearance of nose and ears normal, oral cavity grossly normal. NECK: JVD not raised; masses not palpable. HEART: First and second heart sounds are normal; no edema. LUNGS: Respiratory rate normal; decreased breath sound. ABDOMEN: Soft, mild tenderness, binder in place. HELLEN drain on right side PSYCH: Alert and oriented x3; mood and affect normal. MUSCULOSKELETAL:No Clubbing/cyanosis;muscles-grossly intact. OA INVESTIGATIONS, reviewed in the clinical context: 06/06/2022: WBC 10.5 hemoglobin 11.3 potassium 3.8 creatinine 0.87 pro- calcitonin 0.15 06/03/2022: WBC 11.1 hemoglobin 11.8 platelets 313 WBC 12.60 globin 30.1 platelets 326 potassium 4.2 creatinine 0.87 Admission labs: White count 14.4 hemoglobin 14.7 potassium 4.[address] abdomen: Uncomplicated appendicitis. Hepatic steatosis Assessment and plan: -Acute gangrenous appendicitis Open appendectomy done on June [address] Ricardo. IV Zosyn. Ground diet IV fluids -Obesity BMI 35.4 Weight loss measures -Hyperlipidemia Lipitor -Essential hypertension Captopril, replaced by lisinopril hydrochlorothiazide -Left eye strabismus -Primary osteoarthritis Pain medications when necessary -Nonalcoholic fatty liver disease Follow-up with PCP Ground diet. IV Zosyn. Other medications to continue. Improving. Keep a close eye on blood pressure. Thank you
[2022-06-06] MEDS: ATORVASTATIN 20 MG TAB PO SCH (21:40)
[2022-06-07] MEDS: PIPERACILLIN-TAZOBACTAM 3.375 GM in SODIUM CHLORIDE 0.9% 100 ML IVPB SCH ×2 (00:18→09:01)
[2022-06-07] MEDS: SODIUM CHLORIDE 0.9% 1,000 ML IV SCH (03:21)
[2022-06-07 05:31] VITALS: BP 136/69; PULSE 79; TEMP 99.4
[2022-06-07] MEDS: ENOXAPARIN 40 MG/0.4 ML SYRINGE SQ SCH (09:01)
[2022-06-07] MEDS: LISINOPRIL-HCTZ 20-12.5 MG 1 EACH TAB PO SCH (09:01)
[2022-06-07] MEDS: THIAMINE 100 MG TAB PO SCH (09:02)
[2022-06-07] MEDS: FOLIC ACID 1 MG TAB PO SCH (09:02)
[2022-06-07] MEDS: MULTIVITAMINS, THERA 1 EACH TAB PO SCH (09:02)
[2022-06-07] MEDS: FAMOTIDINE 20 MG TAB PO SCH (09:02)
[2022-06-07] MEDS: FLUTICASONE 50MCG/SPRAY NASAL 16GM EA NOSTRIL SCH (09:03)
--- NOTE | 2022-06-07 10:45 | P.DS ---
Providers Date of admission: 06/05/22 08:25 Expected date of discharge: 06/07/22 Attending physician: Ronen Ricardo Consults: 06/01/22 12:54 Consult Physician Routine Consulting Provider: Kenneth Garcia Consult Reason/Comments: medical management Do you want consulting provider notified?: Yes Primary care physician: Ronan Nguyen - Discharge Diagnosis(es) (1) Acute appendicitis Referring chart for full details. Patient admitted with ruptured appendicitis. Underwent open appendectomy. Patient's diet has gradually been advanced. He is now afebrile. White blood cell count 10.5 yesterday. He is anxious to go home. He is tolerating his diet. Having good bowel function. HELLEN drain is serous. Will plan discharge. Follow-up with Dr. Ricardo this Wednesday. Home with HELLEN in place. Home with oral antibiotics. Current Visit: Yes Status: Acute Plan - Discharge Summary Discharge Rx Participant: No New Discharge Prescriptions: No Action Fluticasone Nasal [place] [Flonase Nasal [place]] 2 spray EA NOSTRIL DAILY Multivitamins, Thera [Multivitamin] 1 tab PO DAILY Aspirin 81 mg PO DAILY hydroCHLOROthiazide 12.5 mg PO DAILY captopriL [Captopril] 25 mg PO DAILY Ibuprofen [Motrin Ib] 400 mg PO DAILY Cholecalciferol [Vitamin D3 (25 Mcg = 1000 Iu)] 25 mcg PO DAILY Atorvastatin [Lipitor] 20 mg PO HS Discharge Medication List Fluticasone Nasal [place] [Flonase Nasal [place]] 2 spray EA NOSTRIL DAILY 07/14/16 [History] Multivitamins, Thera [Multivitamin] 1 tab PO DAILY 07/14/16 [History] Aspirin 81 mg PO DAILY 01/06/18 [History] Atorvastatin [Lipitor] 20 mg PO HS 06/01/22 [History] Cholecalciferol [Vitamin D3 (25 Mcg = 1000 Iu)] 25 mcg PO DAILY 06/01/22 [History] Ibuprofen [Motrin Ib] 400 mg PO DAILY 06/01/22 [History] captopriL [Captopril] 25 mg PO DAILY 06/01/22 [History] hydroCHLOROthiazide 12.5 mg PO DAILY 06/01/22 [History] Follow up Appointment(s)/Referral(s): Ronan Nguyen DO [Primary Care Provider] - 1-2 days
--- NOTE | 2022-06-09 15:17 | CDI ---
Documentation Clarification Form Date: 06/09/2022 02:54:00 PM From: Annamarie Crow Admit Date: 06/05/2022 08:25:00 AM Patient Name: Tay Winn Visit Number: [id number] Discharge Date: 06/07/2022 01:19:00 PM ATTENTION: The Clinical Documentation Specialists (CDI) and [facility] Coding Staff appreciate your assistance in clarifying documentation. Please respond to the clarification below the line at the bottom and electronically sign. The CDI & [facility] Coding staff will review the response and follow-up if needed. Please note: Queries are made part of the Legal Health Record. If you have any questions, please contact the author of this message via ITS. Dr. Ramin Mckeon Acute Kidney Injury likely due to dehydration is documented in the 06/01/22 History and Physical, but not noted in subsequent documentation. Additional clarification is requested. History/Risk Factors: 66 year old male presented with right sided abdominal pain, pain is constant and worse with any movement. Decreased appetite, daily alcohol consumption. Patient diagnosed with Acute Gangrenous Appendicitis, obesity, HTN, HLD, nonalcoholic fatty liver disease Clinical Indicators: dehydration, DANII, chills T: 98.4 P: 112 R: 18 BP 101/53 O2: 97 06/01 WBC: 14.4 BUN: 20 Creatinine 1.44 06/02 WBC: 12.6 BUN: 20 Creatinine: 0.87 Treatment: patient admitted for surgery, started on IV fluids and antibiotics, consulted medical management Please clarify if Acute Kidney Injury is supported: [ X] Acute Kidney Injury confirmed [ ] Acute Kidney Injury ruled out [ ] Other, please specify [ ] Unable to determine MTDD
== END 2022-06-07 13:19 | disposition home or self-care (01) | DRG 339 ==
LOC: EC 08:53 → 6NMEDSUR 11:46 → 5NMEDONC 15:05 → OBSVTOIN 06-05 08:25
PROVIDERS: ADMIT Surgery; ATTEND Surgery
PROC: 0WJG4ZZ Inspection of Peritoneal Cavity, Percutaneous Endoscopic Approach (ICD-10-PCS; principal; 2022-06-01 18:35)
PROC: 0DTJ0ZZ Resection of Appendix, Open Approach (ICD-10-PCS; principal; 2022-06-01 18:35)
DX: K35.32 Acute appendicitis with perforation, localized peritonitis, and gangrene, without abscess (principal); N17.9 Acute kidney failure, unspecified; H91.91 Unspecified hearing loss, right ear; I10 Essential (primary) hypertension; E78.5 Hyperlipidemia, unspecified; E66.9 Obesity, unspecified; M19.91 Primary osteoarthritis, unspecified site; H50.9 Unspecified strabismus; K76.0 Fatty (change of) liver, not elsewhere classified; E86.0 Dehydration; Z96.652 Presence of left artificial knee joint; Z68.35 Body mass index [BMI] 35.0-35.9, adult; Z87.891 Personal history of nicotine dependence; Z79.899 Other long term (current) drug therapy; Z79.82 Long term (current) use of aspirin
CPT/HCPCS: 36415; 74177; 80048; 80053; 81001; 83605; 83690; 84145; 85025; 87040; 88304; 96361; 96365; 99285

== ENCOUNTER → 2022-06-30 | Outpatient (CLI) | payer MEDICARE ==
[2022-06-30 11:30] LABS: Appearance,Urine Clear (Clear); Bilirubin,Urine Negative (Negative); Blood,Urine Negative (Negative); Color,Urine Yellow; Glucose,Urine (UA) Negative (Negative); Ketones,Urine Negative (Negative); Leukocyte Esterase,Urine Negative (Negative); Nitrite,Urine Negative (Negative); PH, Urine 6.5 (5.0-8.0); Protein,Urine Negative (Negative); Urobilinogen,Urine <2.0 mg/dL (<2.0)
[2022-06-30 14:44] LABS: Basophils # (A) 0.07 X 10*3/uL (0.00-0.10); Basophils % (A) 0.8 %; Eosinophils # (A) 0.24 X 10*3/uL (0.04-0.35); Eosinophils % (A) 2.8 %; HCT 38.5 % (39.6-50.0); HGB 13.2 g/dL (13.0-17.0); Immature Grans, Automated 1.2 %; Lymphocytes # (A) 1.74 X 10*3/uL (0.90-5.00); Lymphocytes % (A) 20.2 %; MCHC 34.3 g/dL (32.0-37.0); MCV 93.2 fL (80.0-97.0); Mean Platelet Volume 10.5 fL (9.5-12.2); Monocytes # (A) 0.62 X 10*3/uL (0.20-1.00); Monocytes % (A) 7.2 %; NRBC Per 100 WBC 0 /100 WBCS (0.0-0.0); Neutrophils # (A) 5.85 X 10*3/uL (1.80-7.70); Neutrophils % (A) 67.8 %; Platelet Count 327 X 10*3/uL (140-440); RBC 4.13 X 10*6/uL (4.40-5.60); RDW 12.1 % (11.5-14.5); WBC 8.62 X 10*3/uL (4.50-10.00)
[2022-06-30 15:24] LABS: African American GFR (CKD) 101.4 (60.0-200.0); Albumin 4.3 g/dL (3.8-4.9); Albumin/Globulin Ratio 1.65 (1.60-3.17); Anion Gap 10.7 mmol/L (10.00-18.00); BUN/Creat Ratio 19.44 Ratio (12.00-20.00); Blood Urea Nitrogen 17.5 mg/dL (9.0-27.0); Calcium 9.4 mg/dL (8.7-10.3); Carbon Dioxide 26.3 mmol/L (20.0-27.5); Globulin 2.6 g/dL (1.6-3.3); Non-African American GFR(CKD) 87.5 (60.0-200.0); Potassium 4.6 mmol/L (3.5-5.5); Total Bilirubin 0.8 mg/dL (0.30-1.20); Total Protein 6.9 g/dL (6.2-8.2)
== END | disposition home or self-care (01) ==
LOC: LABWHC1 09:54
PROVIDERS: ATTEND Family Medicine
DX: N17.9 Acute kidney failure, unspecified (principal); E66.9 Obesity, unspecified
CPT/HCPCS: 36415; 80053; 81003; 82306; 83036; 85025

== ENCOUNTER 2022-09-25 06:01 | Day surgery (SDC) | payer MEDICARE ==
[~2022-09-25 06:01] MED LIST changes: +ACETAMINOPHEN TAB 500 MG TAB PO PRN; +DEXAMETHASONE SOD PHOSPHATE 4 MG/ML 1 ML VIAL IV ONE; +HEPARIN SODIUM,PORCINE/PF 5,000 UNIT/0.5 ML SYRINGE SQ PRN; +LIDOCAINE 1% (10MG/ML) FOR IV START INTRADERMA PRN; +ONDANSETRON 4 MG/2 ML VIAL IVP ONE
[2022-09-25] MEDS ORDERED: MIDAZOLAM 2 MG/2 ML VIAL IVP ONE (07:10)
[2022-09-25] MEDS ORDERED: fentaNYL (PF) 50 MCG/1 ML VIAL IVP ONE (07:10)
[2022-09-25] MEDS ORDERED: GLYCOPYRROLATE 0.2 MG/ML 2 ML VIAL ONE (07:50)
[2022-09-25] MEDS ORDERED: SODIUM CHLORIDE 0.9% (PF) 10 ML VIAL ONE (07:50)
[2022-09-25] MEDS ORDERED: SUCCINYLCHOLINE CHLORIDE 200 MG/10 ML VIAL IV ONE (07:50)
[2022-09-25] MEDS ORDERED: PROPOFOL 10 MG/ML 20 ML VIAL IV ONE (07:50)
[2022-09-25] MEDS ORDERED: ROPIVACAINE 5 MG/ML 30 ML VIAL ONE (07:50)
[2022-09-25] MEDS ORDERED: PHENYLEPHRINE-0.9% NACL SYG 1,000 MCG/10 ML SYRINGE ONE (07:50)
[2022-09-25] MEDS ORDERED: LIDOCAINE 2% INJ 20 MG/ML (2 ML VIAL) ONE (07:50)
[2022-09-25] MEDS ORDERED: KETAMINE 10 MG/ML 20 ML VIAL ONE (07:50)
[2022-09-25] MEDS ORDERED: ROCURONIUM 10 MG/ML (5 ML VIAL) IV ONE (07:50)
[2022-09-25] MEDS ORDERED: NEOSTIGMINE 1 MG/ML 10 ML VIAL ONE (07:50)
[2022-09-25] MEDS ORDERED: KETOROLAC 30 MG/ML 1 ML VIAL ONE (07:50)
[2022-09-25] MEDS ORDERED: fentaNYL (PF) 50 MCG/ML 2 ML AMP ONE (07:50)
[2022-09-25] MEDS ORDERED: MIDAZOLAM 2 MG/2 ML VIAL ONE (07:50)
--- NOTE | 2022-09-25 09:58 | P.OP ---
Date of Procedure: 09/25/22 Preoperative Diagnosis: Incarcerated incisional hernia Postoperative Diagnosis: Incarcerated incisional hernia Procedure(s) Performed: Open repair of incisional hernia with mesh Anesthesia: AARON Surgeon: Ronen Ricardo Estimated Blood Loss (ml): 25 Pathology: none sent Condition: stable Disposition: PACU Operative Findings: 25 cm x 10 cm incarcerated incisional hernia Description of Procedure: The patient's placed on the operative table in the supine position. He received general anesthesia. His abdomen was prepped and draped in sterile fashion. The skin was incised through his previous midline scar. The patient had a large incisional hernia located across the entire length the scar. The subcutaneous tissue divided off of the hernia sac. The hernia defect measured 25 x 10 cm The hernia sac contained incarcerated omentum. This was opened and placed back into the peritoneal cavity. Once the fascia exposed. A relaxing incision was made in the fascia external oblique laterally in order to bring the fascia together in the midline. The fascia was then reapproximated using [id number] Ethibond suture. Then a #1 Rajan fix suture was used to buttress the repair. Next, a piece of Prolene mesh was cut to appropriate size and placed over top the repair and secured with a secure strap tacker. A HELLEN drains placed on top of the mesh brought through separate stab incision and secured with 2-0 nylon. Eun's fascia close [place]. Skin was closed mera. The prevena wound system was placed over top of the mera. Patient top she will was sent to recovery room stable condition.
[2022-09-25] MEDS: HYDROmorphone 0.5 MG/0.5 ML SYRINGE IVP PRN ×3 (10:00→10:28)
[2022-09-25] MEDS ORDERED: ONDANSETRON 4 MG/2 ML VIAL IVP PRN (10:22)
[2022-09-25] MEDS ORDERED: HYDROmorphone 1 MG/ML 1 ML SYRINGE IVP PRN (10:22)
[2022-09-25] MEDS ORDERED: NALOXONE 0.4 MG/ML 1 ML VIAL IV PRN (10:22)
[2022-09-25] MEDS ORDERED: LACTATED RINGERS 1,000 ML IV ONE (10:22)
[2022-09-25] MEDS: KETOROLAC 15 MG/ML 1 ML VIAL IVP SCH ×3 (11:33→23:32)
--- NOTE | 2022-09-25 11:38 | P.ANPRN ---
Procedure Note - Anesthesia - Nerve Block Performed Bilateral Erector Spinae Single Time Out Performed: Yes ([id number]) Date of Procedure: 09/25/22 Procedure Start Time: 07:10 Procedure Stop Time: 07:15 Location of Patient: PreOp Indication: Acute Post-Operative Pain, Requested by Surgeon (donte) Specifically requested for management of pain by DrJosette: Ronen Ricardo Sedation Type: Sedate with meaningful contact maintained Preparation: Sterile Prep Position: Sitting Catheter: None Needle Types: [place] Needle Gauge: 21 Ultrasound used to visualize needle placement: Yes Ultrasound used to observe medication spread: Yes Injectate: 0.5% Ropivacaine (see comment for volume) (15cc +10cc nacl pf each side) Blood Aspirated: No Pain Paresthesia on Injection Noted: No Resistance on Injection: Normal Image Stored and Saved: Yes Events: Uneventful and Well Tolerated
[2022-09-25] MEDS: HYDROcodone/APAP 5-325MG 1 EACH TAB PO PRN ×2 (14:25→21:47)
--- NOTE | 2022-09-25 15:02 | P.CONS ---
History of Present Illness - Reason for Consult Consult date: 09/25/22 Medical management Requesting physician: Ronen Ricardo - Chief Complaint Abdominal surgery - History of Present Illness This is a pleasant 67-year-old patient, follows with Dr. Nguyen. 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 Ricardo. Minimal blood loss. Some pain at the operative site. Patient has an abdominal binder. Has a HELLEN drain. No nausea vomiting. Laying in bed. 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 Smoked for 41 years stopped in 2012. One pack a day. Physical examination: VITAL SIGNS: 98.6, 97, 16, 135/83, 94% on 2 L GENERAL: BMI 36.2, reclining, not in distress EYES: Pupils equal. Conjunctiva normal. HEENT: External appearance of nose and ears normal, oral cavity grossly normal. Decreased hearing in the right ear NECK: JVD not raised; masses not palpable. HEART: First and second heart sounds are normal; no edema. LUNGS: Respiratory rate normal; decreased breath sound. ABDOMEN: Soft, tenderness, liver spleen not palpable, no masses palpable. Abdominal binder. Dressing. HELLEN drain PSYCH: Alert and oriented x3; mood and affect normal. MUSCULOSKELETAL:No Clubbing/cyanosis;muscles-grossly intact. OA NEUROLOGICAL: Cranial nerves grossly intact; no facial asymmetry, power and sensation grossly intact. LYMPHATICS: No lymph nodes palpable in the axilla and neck INVESTIGATIONS, reviewed in the clinical context: Potassium 4.3 Assessment and plan: -open repair of incisional hernia with mesh for incarcerated incisional hernia by Dr. Ricardo. Abdominal binder. HELLEN drain. Regular diet. -Obesity BMI 36.2 Weight loss measures -Hyperlipidemia Lipitor -Essential hypertension Lisinopril 5 mg daily at bedtime -Left eye strabismus -Primary osteoarthritis Pain medications when necessary -Nonalcoholic fatty liver disease Regular diet per surgery. Resume home medications. Given that captopril has a shorter half life was changed the patient to Zestril. Activity as tolerated. Thank you Dr. Ricardo Past Medical History Past Medical History: Hearing Disorder / Deafness, Hyperlipidemia, Hypertension, Osteoarthritis (OA) Additional Past Medical History / Comment(s): RIGHT EAR- HARD OF HEARING History of Any Multi-Drug Resistant Organisms: None Reported Past Surgical History: Appendectomy, Joint Replacement Additional Past Surgical History / Comment(s): LEFT KNEE ARTHROTOMY,TOTAL LEFT KNEE ,EYE SURGERY A CHILD,LASIK, open appey 05/2022 Past Anesthesia/Blood Transfusion Reactions: No Reported Reaction Smoking Status: Former smoker - Past Family History Mother Family Medical History: No Reported History Medications and Allergies Home Medications Medication Instructions Recorded Confirmed Type Fluticasone Nasal [place] [Flonase 2 spray EA NOSTRIL DAILY 07/14/16 09/25/22 History Nasal [place]] Multivitamins, Thera [Multivitamin] 1 tab PO DAILY 07/14/16 09/25/22 History Aspirin 81 mg PO DAILY 01/06/18 09/25/22 History Atorvastatin [Lipitor] 20 mg PO HS 06/01/22 09/25/22 History Cholecalciferol [Vitamin D3 (25 25 mcg PO DAILY 06/01/22 09/25/22 History Mcg = 1000 Iu)] Ibuprofen [Motrin Ib] 200 mg PO DAILY PRN 06/01/22 09/25/22 History captopriL [Captopril] 25 mg PO DAILY 06/01/22 09/25/22 History hydroCHLOROthiazide 12.5 mg PO DAILY 06/01/22 09/25/22 History Fiberpowder 2 tbsp PO DAILY 09/18/22 09/25/22 History Acetaminophen Tab [Tylenol] 650 mg PO Q6H #30 tab 09/25/22 Rx Docusate [Colace] 100 mg PO BID #20 capsule 09/25/22 Rx Ibuprofen [Motrin] 600 mg PO Q6HR PRN #40 tab 09/25/22 Rx oxyCODONE HCL [OxyIR] 5 mg PO Q6H PRN 3 Days #10 tab 09/25/22 Rx Allergies Allergy/AdvReac Type Severity Reaction Status Date / Time No Known Allergies Allergy Verified 09/25/22 06:23 Physical Exam Vitals: Vital Signs Temp Pulse Resp BP Pulse Ox 09/25/22 12:12 97 135/83 94 L 09/25/22 11:23 98.6 F 86 16 149/73 96 09/25/22 10:44 83 16 151/76 97 09/25/22 10:29 85 16 149/75 93 L 09/25/22 10:14 80 16 154/77 96 09/25/22 09:59 86 16 159/77 99 09/25/22 09:44 98.0 F 96 16 142/74 97 09/25/22 07:35 74 18 122/60 96 09/25/22 07:20 88 18 105/61 97 09/25/22 06:50 97.1 F L 89 18 134/61 94 L Intake and Output 09/24/22 09/25/22 09/25/22 22:59 06:59 14:59 Intake Total 200 450 Output Total 90 Balance 200 360 Intake: IV 200 450 Output: Drainage 40 Right Abdomen 40 Estimated Blood Loss 50 Results CBC & Chem 7: 09/25/22 06:41
[2022-09-25] MEDS: lisinopriL 5 MG TAB PO SCH (21:47)
[2022-09-25] MEDS: DOCUSATE 100 MG CAP PO SCH (21:47)
[2022-09-25] MEDS: ATORVASTATIN 20 MG TAB PO SCH (21:47)
[2022-09-26] MEDS: KETOROLAC 15 MG/ML 1 ML VIAL IVP SCH ×4 (06:57→23:46)
[2022-09-26] MEDS: MULTIVITAMINS, THERA 1 EACH TAB PO SCH (08:32)
[2022-09-26] MEDS: ASPIRIN 81 MG PO SCH (08:32)
[2022-09-26] MEDS: ENOXAPARIN 40 MG/0.4 ML SYRINGE SQ SCH (08:32)
[2022-09-26] MEDS: DOCUSATE 100 MG CAP PO SCH ×2 (08:33→21:11)
[2022-09-26] MEDS: HYDROcodone/APAP 5-325MG 1 EACH TAB PO PRN (08:38)
--- NOTE | 2022-09-26 09:53 | P.PN ---
Progress Note - Text Progress Note Date: 09/26/22 Patient has complaints of incisional pain. He's requiring IV narcotic pain management On exam vital signs are stable. Abdomen soft. Incision is clean dry intact. Status post repair of large ventral hernia. Patient will be observed for another day prior to discharge.
--- NOTE | 2022-09-26 18:51 | P.PN ---
Progress Note - Text Progress Note Date: 09/26/22 - Chief Complaint Abdominal surgery Hospital course: This is a pleasant 67-year-old patient, follows with Dr. Nguyen. 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 Ricardo. Minimal blood loss. Some pain at the operative site. Patient has an abdominal binder. Has a HELLEN drain. No nausea vomiting. Laying in bed. 09/26/2022: Patient did ambulate. No flatus. No nausea vomiting. Significant pain present. Serosanguineous about 80 mL output in the last 12 hours. In the HELLEN drain. On regular diet. Active Medications Acetaminophen (Acetaminophen Tab 325 Mg Tab) 650 mg PO Q6HR PRN PRN Reason: Mild Pain or Fever >= 100.5 Stop: 10/25/22 10:23 Hydrocodone Bitart/Acetaminophen (Hydrocodone/Apap 5-325mg 1 Each Tab) 2 each PO Q6HR PRN PRN Reason: Severe Pain (Scale 7 to 10) Stop: 10/25/22 10:23 Last Admin: 09/26/22 08:38 Dose: 2 each Aspirin (Aspirin 81 Mg) 81 mg PO DAILY [facility] Last Admin: 09/26/22 08:32 Dose: 81 mg Atorvastatin Calcium (Atorvastatin 20 Mg Tab) 20 mg PO HS [facility] Last Admin: 09/25/22 21:47 Dose: 20 mg Docusate Sodium (Docusate 100 Mg Cap) 100 mg PO BID [facility] Stop: 10/25/22 21:01 Last Admin: 09/26/22 08:33 Dose: 100 mg Enoxaparin Sodium (Enoxaparin 40 Mg/0.4 Ml Syringe) 40 mg SQ DAILY [facility] Stop: 10/26/22 09:01 Last Admin: 09/26/22 08:32 Dose: 40 mg Hydromorphone HCl (Hydromorphone 1 Mg/Ml 1 Ml Syringe) 1 mg IVP Q4HR PRN PRN Reason: Severe Pain (Scale 7 to 10) Stop: 10/25/22 10:23 Ketorolac Tromethamine (Ketorolac 15 Mg/Ml 1 Ml Vial) 15 mg IVP Q6HR [facility] Stop: 09/27/22 06:01 Last Admin: 09/26/22 17:17 Dose: 15 mg Lidocaine HCl (Lidocaine 1% (10mg/Ml) For Iv Start) 0.1 ml INTRADERMA PER PROTOCOL PRN PRN Reason: IV Start Stop: 10/25/22 05:57 Lisinopril (Lisinopril 5 Mg Tab) 5 mg PO HS [facility] Last Admin: 09/25/22 21:47 Dose: 5 mg Multivitamins (Multivitamins, Thera 1 Each Tab) 1 each PO DAILY [facility] Last Admin: 09/26/22 08:32 Dose: 1 each Naloxone HCl (Naloxone 0.4 Mg/Ml 1 Ml Vial) 0.2 mg IV Q2M PRN PRN Reason: Opioid Reversal Stop: 10/25/22 10:23 Ondansetron HCl (Ondansetron 4 Mg/2 Ml Vial) 4 mg IVP Q6HR PRN PRN Reason: Nausea And Vomiting Stop: 10/25/22 10:23 Past medical history to include: Decreased hearing in right ear, hypertension, hyperlipidemia, osteoarthritis 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 Smoked for 41 years stopped in 2012. One pack a day. Physical examination: VITAL SIGNS: 98.6, 66, 18, 100/56, 95% on 2 L GENERAL: reclining, not in distress EYES: Pupils equal. Conjunctiva normal. HEENT: External appearance of nose and ears normal, oral cavity grossly normal. Decreased hearing in the right ear NECK: JVD not raised; masses not palpable. HEART: First and second heart sounds are normal; no edema. LUNGS: Respiratory rate normal; decreased breath sound. ABDOMEN: Soft, some tenderness, liver spleen not palpable, no masses palpable. Abdominal binder. Dressing. HELLEN drain.-Output serosanguineous PSYCH: Alert and oriented x3; mood and affect normal. MUSCULOSKELETAL:No Clubbing/cyanosis;muscles-grossly intact. OA INVESTIGATIONS, reviewed in the clinical context: Potassium 4.3 Assessment and plan: -open repair of incisional hernia with mesh for incarcerated incisional hernia by Dr. Ricardo. Abdominal binder. HELLEN drain. Regular diet. -Obesity BMI 36.2 Weight loss measures -Hyperlipidemia Lipitor -Essential hypertension Lisinopril 5 mg daily at bedtime -Left eye strabismus -Primary osteoarthritis Pain medications when necessary -Nonalcoholic fatty liver disease Regular diet continue current medications. Repeat labs in the morning. Increase activity. Discussed with the patient and the at the bedside. Thank you Dr. Ricardo
[2022-09-26] MEDS: lisinopriL 5 MG TAB PO SCH (21:11)
[2022-09-26] MEDS: ACETAMINOPHEN TAB 325 MG TAB PO PRN (21:11)
[2022-09-26] MEDS: ATORVASTATIN 20 MG TAB PO SCH (21:11)
[2022-09-27] MEDS: KETOROLAC 15 MG/ML 1 ML VIAL IVP SCH (06:02)
[2022-09-27 06:23] LABS: Basophils % (A) 0 %; Eosinophils # (A) 0.2 k/uL (0-0.7); Eosinophils % (A) 2 %; HCT 35.9 % (39.0-53.0); HGB 12.2 gm/dL (13.0-17.5); Lymphocytes # (A) 1.3 k/uL (1.0-4.8); Lymphocytes % (A) 16 %; MCH 31.4 pg (25.0-35.0); MCHC 33.9 g/dL (31.0-37.0); MCV 92.7 fL (80.0-100.0); Mean Platelet Volume 8.6; Monocytes # (A) 0.7 k/uL (0-1.0); Monocytes % (A) 9 %; Neutrophils # (A) 5.6 k/uL (1.3-7.7); Neutrophils % (A) 70 %; Platelet Count 233 k/uL (150-450); RBC 3.88 m/uL (4.30-5.90); RDW 13.4 % (11.5-15.5)
[2022-09-27 06:38] LABS: African American GFR (CKD) >90 (>60 ml/min/1.73 sqM); Anion Gap 3 mmol/L; Blood Urea Nitrogen 19 mg/dL (9-20); Calcium 8.5 mg/dL (8.4-10.2); Carbon Dioxide 31 mmol/L (22-30); Chloride 104 mmol/L (98-107); Glucose 102 mg/dL (74-99); Non-African American GFR(CKD) >90 (>60 ml/min/1.73 sqM); Potassium 4.2 mmol/L (3.5-5.1); Sodium 138 mmol/L (137-145)
[2022-09-27 07:40] VITALS: BP 156/80; PULSE 96; RESP 18; TEMP 97.5
[2022-09-27] MEDS: ENOXAPARIN 40 MG/0.4 ML SYRINGE SQ SCH (08:13)
[2022-09-27] MEDS: ASPIRIN 81 MG PO SCH (08:13)
[2022-09-27] MEDS: DOCUSATE 100 MG CAP PO SCH (08:13)
[2022-09-27] MEDS: MULTIVITAMINS, THERA 1 EACH TAB PO SCH (08:13)
[2022-09-27] MEDS: ACETAMINOPHEN TAB 325 MG TAB PO PRN (08:19)
--- NOTE | 2022-09-27 11:22 | P.DS ---
Providers Date of admission: 09/25/2022 Expected date of discharge: 09/27/22 Attending physician: Ronen Ricardo Consults: 09/25/22 10:22 Consult Physician Routine Consulting Provider: Kenneth Garcia Consult Reason/Comments: Medical management Do you want consulting provider notified?: Yes Primary care physician: [facility] Hospital Course: Is a 67-year-old male who underwent repair of a large incarcerated incisional hernia. Patient did well postop. He was discharged home postoperative day 2. Procedures: Repair of incisional hernia Patient Condition at Discharge: Good Plan - Discharge Summary Discharge Rx Participant: No New Discharge Prescriptions: New Docusate [Colace] 100 mg PO BID #20 capsule Ibuprofen [Motrin] 600 mg PO Q6HR PRN #40 tab PRN Reason: Pain Acetaminophen Tab [Tylenol] 650 mg PO Q6H #30 tab oxyCODONE HCL [OxyIR] 5 mg PO Q6H PRN 3 Days #10 tab PRN Reason: Pain No Action Fluticasone Nasal [place] [Flonase Nasal [place]] 2 spray EA NOSTRIL DAILY Multivitamins, Thera [Multivitamin] 1 tab PO DAILY Aspirin 81 mg PO DAILY hydroCHLOROthiazide 12.5 mg PO DAILY captopriL [Captopril] 25 mg PO DAILY Fiberpowder 2 tbsp PO DAILY Ibuprofen [Motrin Ib] 200 mg PO DAILY PRN PRN Reason: Pain Cholecalciferol [Vitamin D3 (25 Mcg = 1000 Iu)] 25 mcg PO DAILY Atorvastatin [Lipitor] 20 mg PO HS Discharge Medication List Fluticasone Nasal [place] [Flonase Nasal [place]] 2 spray EA NOSTRIL DAILY 07/14/16 [History] Multivitamins, Thera [Multivitamin] 1 tab PO DAILY 07/14/16 [History] Aspirin 81 mg PO DAILY 01/06/18 [History] Atorvastatin [Lipitor] 20 mg PO HS 06/01/22 [History] Cholecalciferol [Vitamin D3 (25 Mcg = 1000 Iu)] 25 mcg PO DAILY 06/01/22 [History] Ibuprofen [Motrin Ib] 200 mg PO DAILY PRN 06/01/22 [History] captopriL [Captopril] 25 mg PO DAILY 06/01/22 [History] hydroCHLOROthiazide 12.5 mg PO DAILY 06/01/22 [History] Fiberpowder 2 tbsp PO DAILY 09/18/22 [History] Acetaminophen Tab [Tylenol] 650 mg PO Q6H #30 tab 09/25/22 [Rx] Docusate [Colace] 100 mg PO BID #20 capsule 09/25/22 [Rx] Ibuprofen [Motrin] 600 mg PO Q6HR PRN #40 tab 09/25/22 [Rx] oxyCODONE HCL [OxyIR] 5 mg PO Q6H PRN 3 Days #10 tab 09/25/22 [Rx] Follow up Appointment(s)/Referral(s): Ronen Ricardo MD [STAFF PHYSICIAN] - 10/01/22 3:30 pm Patient Instructions/Handouts: *Surgery [facility] - (Anesthesia) Discharge Instructions Outpatient Surgery, [facility] Care (DC), Incisional Hernia (DC) Activity/Diet/Wound Care/Special Instructions: Patient to empty HELLEN drain and record output 3 times per day Discharge Disposition: HOME SELF-CARE
--- NOTE | 2022-09-27 13:24 | P.PN ---
Progress Note - Text Progress Note Date: 09/27/22 - Chief Complaint Abdominal surgery Hospital course: This is a pleasant 67-year-old patient, follows with Dr. Nguyen. 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 Ricardo. Minimal blood loss. Some pain at the operative site. Patient has an abdominal binder. Has a HELLEN drain. No nausea vomiting. Laying in bed. 09/26/2022: Patient did ambulate. No flatus. No nausea vomiting. Significant pain present. Serosanguineous about 80 mL output in the last 12 hours. In the HELLEN drain. On regular diet. 09/27/2022: 8 his breakfast well. Cleared by surgery for discharge. Pain well controlled. Will be going home with HELLEN drain. We'll discharge the patient on lisinopril hydrochlorothiazide 10/12.5 one tablet daily at bedtime. Follow-up with PCP in one week for blood pressure check. Captopril discontinued. Discussed with patient and Past medical history to include: Decreased hearing in right ear, hypertension, hyperlipidemia, osteoarthritis 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 Smoked for 41 years stopped in 2012. One pack a day. Physical examination: VITAL SIGNS: 97.5, 96, 18, 1 56 x 80, 94% room air GENERAL: Up in a chair, comfortable EYES: Pupils equal. Conjunctiva normal. HEENT: External appearance of nose and ears normal, oral cavity grossly normal. Decreased hearing in the right ear NECK: JVD not raised; masses not palpable. HEART: First and second heart sounds are normal; no edema. LUNGS: Respiratory rate normal; decreased breath sound. ABDOMEN: Soft, mild tenderness, liver spleen not palpable, no masses palpable. Abdominal binder. Dressing. HELLEN drain.-Output serosanguineous PSYCH: Alert and oriented x3; mood and affect normal. MUSCULOSKELETAL:No Clubbing/cyanosis;muscles-grossly intact. OA INVESTIGATIONS, reviewed in the clinical context: Potassium 4.3 Assessment and plan: -open repair of incisional hernia with mesh for incarcerated incisional hernia by Dr. Ricardo. Abdominal binder. HELLEN drain. Regular diet. -Obesity BMI 36.2 Weight loss measures -Hyperlipidemia Lipitor -Essential hypertension Zestoretic 1012.5 daily at bedtime, start today -Left eye strabismus -Primary osteoarthritis Pain medications when necessary -Nonalcoholic fatty liver disease Follow-up with Dr. Nguyen upon discharge. Prescription sent to the pharmacy. Discussed
== END 2022-09-27 12:33 | disposition home or self-care (01) ==
LOC: OR 06:01 → 5NMEDONC 09:34 → OR 09-27 12:33
PROVIDERS: ATTEND Surgery
DX: K43.0 Incisional hernia with obstruction, without gangrene (principal); G89.18 Other acute postprocedural pain; E66.9 Obesity, unspecified; E78.5 Hyperlipidemia, unspecified; F17.210 Nicotine dependence, cigarettes, uncomplicated; I10 Essential (primary) hypertension; K76.0 Fatty (change of) liver, not elsewhere classified; M19.90 Unspecified osteoarthritis, unspecified site; Z68.36 Body mass index [BMI] 36.0-36.9, adult; Z79.1 Long term (current) use of non-steroidal anti-inflammatories (NSAID); Z79.82 Long term (current) use of aspirin; Z79.899 Other long term (current) drug therapy
CPT/HCPCS: 49592; 94760; 64461; 80048; 84132; 85025; C1781; J2250; J1100; J0690; J2405; J1650 ×2; J1885 ×3; J1170; J1644; J3010

== ENCOUNTER → 2022-10-07 | Outpatient (CLI) | payer MEDICARE ==
[2022-10-07 14:23] LABS: HCT 40.3 % (39.6-50.0); HGB 13.3 g/dL (13.0-17.0); MCH 31.1 pg (27.0-32.0); MCV 94.4 fL (80.0-97.0); Mean Platelet Volume 10.4 fL (9.5-12.2); NRBC Per 100 WBC 0 /100 WBCS (0.0-0.0); Platelet Count 404 X 10*3/uL (140-440); RBC 4.27 X 10*6/uL (4.40-5.60); RDW 12.8 % (11.5-14.5); WBC 7.94 X 10*3/uL (4.50-10.00)
[2022-10-07 16:00] LABS: % Iron Saturation 18.24 (15.00-50.00); African American GFR (CKD) 88.6 (60.0-200.0); BUN/Creat Ratio 20.5 Ratio (12.00-20.00); Blood Urea Nitrogen 20.5 mg/dL (9.0-27.0); Calcium 9.5 mg/dL (8.7-10.3); Non-African American GFR(CKD) 76.5 (60.0-200.0); Potassium 4.8 mmol/L (3.5-5.5)
== END | disposition home or self-care (01) ==
LOC: LABWHC1 08:30
PROVIDERS: ATTEND Family Medicine
DX: I10 Essential (primary) hypertension (principal); D64.9 Anemia, unspecified
CPT/HCPCS: 36415; 80048; 82728; 83540; 83550; 84450; 84460; 85027

== ENCOUNTER → 2022-10-21 | Outpatient (CLI) | payer MEDICARE | END | disposition home or self-care (01) | LOC: LABWHC1 08:57 | PROVIDERS: ATTEND Family Medicine | DX: R74.8 Abnormal levels of other serum enzymes (principal) | CPT/HCPCS: 36415; 84460 ==

== ENCOUNTER → 2022-11-19 | Outpatient (CLI) | payer MEDICARE | END | disposition home or self-care (01) | LOC: LABWHC1 09:00 | PROVIDERS: ATTEND Family Medicine | DX: R74.8 Abnormal levels of other serum enzymes (principal) | CPT/HCPCS: 36415; 84460 ==

== ENCOUNTER → 2023-03-03 | Outpatient (CLI) | payer MEDICARE ==
--- NOTE | 2023-03-03 09:43 | NM ---
Nuclear medicine hepatobiliary scan. HISTORY: Pain. DOSAGE: The patient received 8 0z Ensure plus and she has no real vertebrae are only 5.1 mCi of Te chnetium 99m Choletec. FINDINGS: There is normal hepatic extraction. The gallbladder is seen by 10 minutes. Ejection fract ion is 13%. IMPRESSION: 1. Abnormal ejection fraction of 13% correlate for biliary dyskinesia.
== END | disposition home or self-care (01) ==
LOC: RADNMMAIN 06:39
PROVIDERS: ATTEND Surgery
DX: K35.33 Acute appendicitis with perforation, localized peritonitis, and gangrene, with abscess (principal); K43.2 Incisional hernia without obstruction or gangrene; S30.1XXA Contusion of abdominal wall, initial encounter; X58.XXXA Exposure to other specified factors, initial encounter
CPT/HCPCS: 78227; A9537; J2805

== ENCOUNTER 2023-04-19 10:20 | Day surgery (SDC) | payer MEDICARE ==
[2023-04-16 10:08] VITALS: BMI 35.9
[~2023-04-19 10:20] MED LIST changes: -DEXAMETHASONE SOD PHOSPHATE 4 MG/ML 1 ML VIAL IV ONE; -LACTATED RINGERS 1,000 ML IV SCH; -LIDOCAINE 1% (10MG/ML) FOR IV START INTRADERMA PRN; -ONDANSETRON 4 MG/2 ML VIAL IVP ONE; +Pre Op ABX Message 1 EACH MISC MISCELLANE ONE
[2023-04-19] MEDS ORDERED: ONDANSETRON 4 MG/2 ML VIAL ONE (10:43)
[2023-04-19] MEDS ORDERED: LACTATED RINGERS 1,000 ML IV ONE ×2 (10:59→16:52)
[2023-04-19] MEDS ORDERED: DEXAMETHASONE SOD PHOSPHATE 4 MG/ML 1 ML VIAL IVP ONE (11:02)
[2023-04-19] MEDS ORDERED: MIDAZOLAM 2 MG/2 ML VIAL ONE (16:22)
[2023-04-19] MEDS ORDERED: SUCCINYLCHOLINE CHLORIDE 200 MG/10 ML VIAL IV ONE (16:22)
[2023-04-19] MEDS ORDERED: NEOSTIGMINE 1 MG/ML 10 ML VIAL ONE (16:22)
[2023-04-19] MEDS ORDERED: LIDOCAINE 1% INJ 10MG/ML (20 ML MDV) ONE (16:22)
[2023-04-19] MEDS ORDERED: PHENYLEPHRINE-0.9% NACL SYG 1,000 MCG/10 ML SYRINGE ONE (16:22)
[2023-04-19] MEDS ORDERED: GLYCOPYRROLATE 0.2 MG/ML 2 ML VIAL ONE (16:22)
[2023-04-19] MEDS ORDERED: fentaNYL (PF) 50 MCG/ML 2 ML AMP ONE (16:22)
[2023-04-19] MEDS ORDERED: PROPOFOL 10 MG/ML 20 ML VIAL IV ONE (16:22)
[2023-04-19] MEDS ORDERED: ROCURONIUM 10 MG/ML (5 ML VIAL) IV ONE (16:22)
[2023-04-19] MEDS ORDERED: SODIUM CHLORIDE 0.9% 50 ML with ceFAZolin 2,000 MG IV ONE ×2 (16:24)
[2023-04-19] MEDS ORDERED: ACETAMINOPHEN TAB 325 MG TAB PO PRN (17:12)
[2023-04-19] MEDS ORDERED: NALOXONE 0.4 MG/ML 1 ML VIAL IV PRN (17:12)
[2023-04-19] MEDS ORDERED: ONDANSETRON 4 MG/2 ML VIAL IVP PRN (17:12)
[2023-04-19] MEDS ORDERED: HYDROmorphone 0.5 MG/0.5 ML SYRINGE IVP PRN (17:12)
--- NOTE | 2023-04-19 17:12 | P.OP ---
Date of Procedure: 04/19/23 Preoperative Diagnosis: Chronic abdominal wall seroma Postoperative Diagnosis: Chronic abdominal wall seroma Procedure(s) Performed: Incision and drainage of abdominal wall seroma with placement of wound VAC Anesthesia: AARON Surgeon: Ronen Ricardo Estimated Blood Loss (ml): 5 Pathology: none sent Condition: stable Disposition: PACU Description of Procedure: The patient's placed on the operative table in the supine position. He received general endotracheal tube anesthesia. His abdomen was prepped and draped usual sterile fashion. The skin was incised in the midline. And then using left cautery subcu tissue divided. The seroma cavity is entered. There is no sign of infection.. Serous fluid in the seroma cavity. The mesh had completely covered with tissue. This point the cavity was irrigated and then aspirated. The black foam for the wound VAC was cut to appropriate size and placed in the wound. The wound VAC dressing was applied. The wound dimensions were 15 cm x 10 cm x 5 cm. Patient top she will was sent to recovery room in stable condition.
[2023-04-19] MEDS: KETOROLAC 15 MG/ML 1 ML VIAL IVP SCH ×2 (19:41→23:56)
[2023-04-20] MEDS: KETOROLAC 15 MG/ML 1 ML VIAL IVP SCH ×2 (05:42→12:36)
[2023-04-20] MEDS ORDERED: HYDROcodone/APAP 5-325MG 1 EACH TAB PO PRN (08:02)
[2023-04-20 08:58] VITALS: RESP 18; TEMP 97.9
[2023-04-20] MEDS ORDERED: ENOXAPARIN 40 MG/0.4 ML SYRINGE SQ SCH (09:00)
--- NOTE | 2023-04-20 12:09 | P.CONS ---
History of Present Illness - Reason for Consult Consult date: 04/20/23 wound care - History of Present Illness This is a 67-year-old patient who underwent abdominal surgery for a abdominal wall serum resulting in an open ulceration measuring approximately 15 x 10 x 5 cm currently patient has negative pressure wound VAC to the site. Plans to continue on outpatient setting. Patient's past medical history significant for hyperlipidemia and hypertension patient is a former smoker. Denies diabetes. Review Of Systems: Constitutional: No fever, no chills, no night sweats. No weight change. No weakness, fatigue or lethargy. No daytime sleepiness. Integumentary:reports wounds, no lesions. No rash or pruritus. No unusual bruising. No change in hair or nails. Physical exam: General Appearance: Alert, cooperative, no distress, appears stated age. Skin: See HPI all other Skin color, texture, tugor normal, no rashes or lesions. Neurologic: Alert oriented x3 assessment: 1. Nonhealing ulceration with muscle involvement without necrosis abdomen plan: 1.Apply negative pressure wound VAC with black foam and 150 mmHg continuous pressure changing Wednesday. When patient is discharged may apply absorptive silver moistened, Kerlix and AVD. 6. Tape. Change Wednesday. Patient to follow-up in the wound care center next week. Thank you for the consultation any questions please contact the wound care center DNP note has been reviewed and discussed with Dr. Navarro and the impression and plan of care has been directed as dictated. Past Medical History Past Medical History: Hearing Disorder / Deafness, Hyperlipidemia, Hypertension, Osteoarthritis (OA) Additional Past Medical History / Comment(s): RIGHT EAR- HARD OF HEARING, abd. fluid sac - drained several times in Dr. Ricardo's office. History of Any Multi-Drug Resistant Organisms: None Reported Past Surgical History: Appendectomy, Hernia Repair, Joint Replacement Additional Past Surgical History / Comment(s): LEFT KNEE ARTHROTOMY,TOTAL LEFT KNEE, EYE SURGERY A CHILD, LASIK. Past Anesthesia/Blood Transfusion Reactions: No Reported Reaction Smoking Status: Former smoker - Past Family History Mother Family Medical History: No Reported History Medications and Allergies Home Medications Medication Instructions Recorded Confirmed Type Fluticasone Nasal [place] [Flonase 2 spray EA NOSTRIL DAILY 07/14/16 04/16/23 History Nasal [place]] Multivitamins, Thera [Multivitamin 1 tab PO DAILY 07/14/16 04/16/23 History (formulary)] Aspirin 81 mg PO DAILY 01/06/18 04/16/23 History Atorvastatin [Lipitor] 20 mg PO HS 06/01/22 04/16/23 History Cholecalciferol [Vitamin D3 (25 25 mcg PO DAILY 06/01/22 04/16/23 History Mcg = 1000 Iu)] Fiberpowder 2 tbsp PO DAILY 09/18/22 04/16/23 History Acetaminophen Tab [Tylenol] 650 mg PO Q6H #30 tab 09/25/22 04/16/23 Rx Ibuprofen [Motrin] 600 mg PO Q6HR PRN #40 tab 09/25/22 04/16/23 Rx Lisinopril-Hctz 10-12.5 mg 1 tab PO HS #30 tab 09/27/22 04/16/23 Rx [Zestoretic 10-12.5] Allergies Allergy/AdvReac Type Severity Reaction Status Date / Time No Known Allergies Allergy Verified 04/19/23 10:38 Physical Exam Vitals: Vital Signs Temp Pulse Resp BP Pulse Ox 04/20/23 07:16 97.9 F 67 18 145/72 99 04/20/23 01:58 98 F 76 16 118/71 99 04/19/23 21:57 91 111/68 95 04/19/23 20:57 95 122/76 90 L 04/19/23 20:28 100 122/70 04/19/23 19:57 96 131/79 92 L 04/19/23 19:45 16 04/19/23 19:42 100 132/77 92 L 04/19/23 19:27 96 146/78 92 L 04/19/23 19:12 90 136/73 93 L 04/19/23 18:57 98.2 F 91 148/76 90 L 04/19/23 18:30 84 16 135/74 95 04/19/23 18:00 86 16 134/71 95 04/19/23 17:45 83 16 136/71 95 04/19/23 17:30 85 16 135/67 95 04/19/23 17:15 99 16 121/62 91 L 04/19/23 17:03 101 H 16 143/67 98 Intake and Output 04/19/23 04/20/23 04/20/23 22:59 06:59 14:59 Intake Total 400 600 Output Total 5 Balance 395 600 Intake: IV 400 Oral 600 Output: Estimated Blood Loss 5 Other: Voiding Method Urinal # Voids 3 Assessment and Plan (1) Non-pressure chronic ulcer of skin of other sites with muscle involvement without evidence of necrosis Current Visit: Yes Status: Acute Code(s): L98.495 - NON-PRS [facility] [address] SKIN/ OTH SITE WITH MSL INVL W/O EVD OF NECR SNOMED Code(s): 34182404
--- NOTE | 2023-04-20 12:23 | P.DS ---
Providers Expected date of discharge: 04/20/23 Attending physician: Ronen Ricardo [facility] [place] Hospital Course: Discharge diagnosis 1. Chronic abdominal wall seroma Hospital course This is a 67-year-old male with a chronic abdominal wall seroma. He is status post Incision and drainage of abdominal wall seroma with placement of wound VAC. Patient reports that his pain is controlled. He is tolerating diet. He's afebrile. He has been up and ambulating. He has been seen by wound care service. He will follow up with wound care service outpatient. He has home care arranged. And rn case management is arranging outpatient wound VAC. Patient is stable for discharge. Please refer to chart for any further details. 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 Signing provider agrees with the documented findings, assessment, and plan of care. Patient Condition at Discharge: Stable Plan - Discharge Summary Discharge Rx Participant: Yes New Discharge Prescriptions: New oxyCODONE HCL [OxyIR] 5 mg PO Q6H PRN 3 Days #12 tab PRN Reason: Pain Continue Fluticasone Nasal [place] [Flonase Nasal [place]] 2 spray EA NOSTRIL DAILY Multivitamins, Thera [Multivitamin (formulary)] 1 tab PO DAILY Aspirin 81 mg PO DAILY Fiberpowder 2 tbsp PO DAILY Ibuprofen [Motrin] 600 mg PO Q6HR PRN #40 tab PRN Reason: Pain Acetaminophen Tab [Tylenol] 650 mg PO Q6H #30 tab Cholecalciferol [Vitamin D3 (25 Mcg = 1000 Iu)] 25 mcg PO DAILY Atorvastatin [Lipitor] 20 mg PO HS Lisinopril-Hctz 10-12.5 mg [Zestoretic 10-12.5] 1 tab PO HS #30 tab Discharge Medication List Fluticasone Nasal [place] [Flonase Nasal [place]] 2 spray EA NOSTRIL DAILY 07/14/16 [History] Multivitamins, Thera [Multivitamin (formulary)] 1 tab PO DAILY 07/14/16 [History] Aspirin 81 mg PO DAILY 01/06/18 [History] Atorvastatin [Lipitor] 20 mg PO HS 06/01/22 [History] Cholecalciferol [Vitamin D3 (25 Mcg = 1000 Iu)] 25 mcg PO DAILY 06/01/22 [History] Fiberpowder 2 tbsp PO DAILY 09/18/22 [History] Acetaminophen Tab [Tylenol] 650 mg PO Q6H #30 tab 09/25/22 [Rx] Ibuprofen [Motrin] 600 mg PO Q6HR PRN #40 tab 09/25/22 [Rx] Lisinopril-Hctz 10-12.5 mg [Zestoretic 10-12.5] 1 tab PO HS #30 tab 09/27/22 [Rx] oxyCODONE HCL [OxyIR] 5 mg PO Q6H PRN 3 Days #12 tab 04/20/23 [Rx] Follow up Appointment(s)/Referral(s): [facility], [NON-STAFF] - 1 Week Ronen Ricardo MD [STAFF PHYSICIAN] - 04/27/23 3:40 pm Activity/Diet/Wound Care/Special Instructions: No driving while taking OxyIR No lifting over 10 pounds You may shower. No soaking or tub baths Very light activity until you are reevaluated at your follow up appointment with your surgeon Discharge Disposition: HOME WITH HOME HEALTH SERVICES
[2023-04-20 12:50] VITALS: BP 133/67; PULSE 68
== END 2023-04-20 15:45 | disposition home health service (06) ==
LOC: OR 10:20 → 5NMEDONC 16:56 → OR 04-20 15:45
PROVIDERS: ATTEND Surgery
DX: S30.1XXA Contusion of abdominal wall, initial encounter (principal); E78.00 Pure hypercholesterolemia, unspecified; K43.2 Incisional hernia without obstruction or gangrene; K35.33 Acute appendicitis with perforation, localized peritonitis, and gangrene, with abscess; M96.842 Postprocedural seroma of a musculoskeletal structure following a musculoskeletal system procedure; K81.1 Chronic cholecystitis; X58.XXXA Exposure to other specified factors, initial encounter
CPT/HCPCS: 10140; J1100; J0690 ×2; J2405; J1650; J1885 ×2; J1644

== ENCOUNTER → 2023-07-01 | Outpatient (CLI) | payer MEDICARE ==
[2023-07-01 16:05] LABS: Albumin 4.2 g/dL (3.8-4.9); Albumin/Globulin Ratio 1.75 Ratio (1.60-3.17); Bilirubin, Conjugated 0.25 mg/dL (0.20-0.40); Bilirubin,Unconjugated 0.65 mg/dL (0.20-1.00); Globulin 2.4 g/dL (1.6-3.3); Total Bilirubin 0.9 mg/dL (0.3-1.2); Total Protein 6.6 g/dL (6.2-8.2)
== END | disposition home or self-care (01) ==
LOC: LABWHC1 09:32
PROVIDERS: ATTEND Family Medicine
DX: E55.9 Vitamin D deficiency, unspecified (principal); K76.0 Fatty (change of) liver, not elsewhere classified; R73.03 Prediabetes
CPT/HCPCS: 36415; 80076; 82306; 83036

== ENCOUNTER → 2024-01-12 | Outpatient (CLI) | payer MEDICARE ==
[2024-01-12 10:41] LABS: Basophils # (A) 0.07 X 10*3/uL (0.00-0.10); Basophils % (A) 1.1 %; Eosinophils # (A) 0.14 X 10*3/uL (0.04-0.35); Eosinophils % (A) 2.2 %; HGB 13.4 g/dL (13.0-17.0); Lymphocytes # (A) 1.67 X 10*3/uL (0.90-5.00); Lymphocytes % (A) 25.9 %; MCH 32.2 pg (27.0-32.0); MCHC 33.5 g/dL (32.0-37.0); MCV 96.2 FL (80.0-97.0); Mean Platelet Volume 10.7 FL (9.5-12.2); Monocytes # (A) 0.52 X 10*3/uL (0.20-1.00); Monocytes % (A) 8.1 %; NRBC Per 100 WBC 0 X 10*3/uL (0.00-0.01); Neutrophils # (A) 3.95 X 10*3/uL (1.80-7.70); Neutrophils % (A) 61.3 %; Platelet Count 284 X 10*3/uL (140-440); RBC 4.16 X 10*6/uL (4.40-5.60); RDW 12.2 % (11.5-14.5); WBC 6.44 X 10*3/uL (4.50-10.00)
[2024-01-12 11:31] LABS: ALT 29 U/L (10-49); AST 25 U/L (14-35); Albumin 4.4 g/dL (3.8-4.9); Albumin/Globulin Ratio 1.83 Ratio (1.60-3.17); Alkaline Phosphatase 74 U/L (41-126); Blood Urea Nitrogen 19.1 mg/dL (9.0-27.0); Calcium 9.3 mg/dL (8.7-10.3); Carbon Dioxide 24.8 mmol/L (21.6-31.8); Chloride 98 mmol/L (96-109); Chol/HDL Ratio 2.42 Ratio; Globulin 2.4 g/dL (1.6-3.3); Glucose 123 mg/dL (70-110); LDL Cholesterol,Calculated 77.1 mg/dL (0.0-131.0); Potassium 4.7 mmol/L (3.5-5.5); Prostate Specific Antigen 0.69 ng/mL (0.000-6.500); Sodium 135 mmol/L (135-145); Total Protein 6.8 g/dL (6.2-8.2); VLDL Calculation 19.58 mg/dL (5.00-40.00)
[2024-01-12 15:28] LABS: Appearance,Urine Clear (Clear); Bilirubin,Urine Negative (Negative); Blood,Urine Negative (Negative); Color,Urine Yellow (Yellow); Ketones,Urine Negative (Negative); Nitrite,Urine Negative (Negative); PH, Urine 5.5; Specific Gravity,Urine 1.015 (1.001-1.030); Urobilinogen,Urine 0.2 E.U./DL
== END | disposition home or self-care (01) ==
LOC: LABWHC1 07:40
PROVIDERS: ATTEND Family Medicine
DX: N40.0 Benign prostatic hyperplasia without lower urinary tract symptoms (principal); E66.9 Obesity, unspecified; E78.00 Pure hypercholesterolemia, unspecified; E55.9 Vitamin D deficiency, unspecified; R73.03 Prediabetes
CPT/HCPCS: 36415; 80053; 80061; 81003; 82306; 83036; 84153; 84443; 85025

== ENCOUNTER → 2024-01-24 | Outpatient (CLI) | payer MEDICARE ==
[2024-01-24 15:38] LABS: T4, Free (Free Thyroxine) 1.23 ng/dL (0.80-1.80)
== END | disposition home or self-care (01) ==
LOC: LABWHC1 11:38
PROVIDERS: ATTEND Family Medicine
DX: E03.9 Hypothyroidism, unspecified (principal)
CPT/HCPCS: 36415; 84432; 84439; 84443; 84481

== ENCOUNTER → 2024-01-25 | Outpatient (CLI) | payer MEDICARE ==
--- NOTE | 2024-01-25 22:04 | US ---
EXAMINATION TYPE: US abdomen limited DATE OF EXAM: 01/25/2024 COMPARISON: US 04/12/2023 CLINICAL INDICATION: Male, 68 years old with history of R19.00 INTRA-ABD AND PELVIC SWELLING; Hx appe ndectomy and hernia surgery. Last procedure was done in April 2023. Abdominal mass. Septated fluid collection was seen on last US. TECHNIQUE: Scanned ML abdomen at the umbilicus. FINDINGS: Hypoechoic, indistinct area seen midline abdomen at the umbilicus measurin.1 x 1.4 x 1 .7 cm. IMPRESSION: 1. Hypoechoic area near the anterior abdominal wall could be a hernia or hematoma. Correlate with the history of the complex septated cystic structure previous has largely resolved.
== END | disposition home or self-care (01) ==
LOC: RADUSWWP 09:07
PROVIDERS: ATTEND Family Medicine
DX: R19.00 Intra-abdominal and pelvic swelling, mass and lump, unspecified site (principal)
CPT/HCPCS: 76705

== ENCOUNTER → 2024-03-24 | Outpatient (CLI) | payer MEDICARE ==
[2024-03-24 15:17] LABS: T4, Free (Free Thyroxine) 1.07 ng/dL (0.80-1.80)
== END | disposition home or self-care (01) ==
LOC: LABWHC1 07:58
PROVIDERS: ATTEND Family Medicine
DX: E03.9 Hypothyroidism, unspecified (principal)
CPT/HCPCS: 36415; 84439; 84443; 84481

== ENCOUNTER → 2024-05-03 | Outpatient (CLI) | payer MEDICARE ==
[2024-05-03 08:11] LABS: African American GFR (CKD) >90 (>60 ml/min/1.73 sqM); Blood Urea Nitrogen 14 mg/dL (9-20); Non-African American GFR(CKD) 83 (>60 ml/min/1.73 sqM)
--- NOTE | 2024-05-03 10:00 | CT ---
EXAMINATION TYPE: CT abdomen pelvis w con CT DLP: 1972 mGycm, Automated exposure control for dose reduction was used. DATE OF EXAM: 05/03/2024 9:29 AM COMPARISON: Abdominal ultrasound 01/25/2024, 04/12/2023, CT abdomen pelvis 06/01/2022 CLINICAL INDICATION:Male, 68 years old with history of K56.609 INTESTNL OBST; r/o ocstruction TECHNIQUE: Standard CT of the abdomen and pelvis following the administration of 100 cc of Isovue 3 00 IV contrast material and oral contrast. Coronal and sagittal reformats were performed. FINDINGS: LOWER CHEST: The lung bases are clear. Coronary artery calcifications. Mildly enlarged heart. No bruce cardial effusion. ABDOMEN LIVER: Right inferior hepatic lobe 1.2 cm cyst. GALLBLADDER AND BILE DUCTS: Unremarkable. PANCREAS: Unremarkable. SPLEEN: Unremarkable. ADRENAL GLANDS: Unremarkable. KIDNEYS AND URETERS: No evidence of hydronephrosis or renal calculus. The kidneys enhance symmetrical ly. Contrast is demonstrated within both collecting systems on the delayed phase. PELVIS BLADDER: Incompletely distended but grossly unremarkable. REPRODUCTIVE: Coarse calcifications of the prostate gland are identified. ABDOMEN & PELVIS STOMACH AND BOWEL: Stomach and duodenum are unremarkable. Enteric contrast reaches the rectum. No foc al bowel wall thickening or surrounding inflammatory changes. The appendix is within normal limits. N o significant stool burden. No evidence of bowel obstruction. PERITONEUM: No evidence of pneumoperitoneum or free fluid. VASCULATURE: Mild atherosclerotic calcifications are present throughout the abdominal aorta and its b ranches. No evidence of aortic aneurysm. MUSCULOSKELETAL: No acute osseous abnormalities. Mild retrolisthesis of L3 on L4. Multilevel degenera tive disc disease. LYMPH NODES: No evidence for lymphadenopathy. SOFT TISSUE/ABDOMINAL WALL: Postsurgical changes of the anterior abdominal wall with prominent tissue along the anterior aspect of the rectus abdominis measuring 13.8 x 1.4 x 12.1 cm in TV, AP, CC dimen sions. This corresponds to prior ultrasound finding. There is some possible fluid attenuation identif ied. No rim enhancement identified. No definitive drainable fluid collection. Small bilateral fat nilda led inguinal hernias. IMPRESSION: 1. Postsurgical changes of anterior abdominal wall with prominent opacity along the anterior rectus abdominis muscle which likely represents postsurgical scarring with some possible fluid. No rim enhan cement to suggest abscess. Phlegmon is not excluded. No definitive drainable fluid collection. 2. No evidence for bowel obstruction. [facility], , 05/03/2024 9:58 AM
== END | disposition home or self-care (01) ==
LOC: RADCTMAIN 07:23
PROVIDERS: ATTEND Surgery Plastic and Reconstructive Surgery
CPT/HCPCS: 36415; 74177; 82565; 84520

== ENCOUNTER → 2024-05-25 | Outpatient (CLI) | payer MEDICARE ==
--- NOTE | 2024-05-27 15:00 | US ---
EXAMINATION TYPE: US gallbladder DATE OF EXAM: 05/25/2024 COMPARISON: 05/03/2024 CT CLINICAL INDICATION: Male, 68 years old with history of R10.11 RIGHT UPPER QUADRANT PAIN; RUQ pain. H x gallstones. TECHNIQUE: Grayscale and color Doppler imaging of the right upper quadrant. FINDINGS: EXAM MEASUREMENTS: Liver Length: 15.5 cm Gallbladder Wall: 0.3 cm CBD: Obscured cm, color Doppler imaging was utilized to isolate the common bile duct for measurement . Right Kidney: 12.1 x 6.0 x 6.4 cm FINANCIAL QUANTITATIVE ANALYST NOTES: Exam is limited due to gas and pt body habitus. Pancreas: Obscured Liver: Left lobe was obscured. *Images taken intercostally. Increased echogenicity, very coarse in ec hotexture. *Complex area seen= 2.4 x 2.3 x [address] findings. Gallbladder: Hyperechoic foci seen within the neck= 1.3 x 2.0 x 1.6 cm. Evidence for sonographic Cerda's sign: No CBD: Obscured Right Kidney: No hydronephrosis or masses seen IMPRESSION: 1. Cholelithiasis. 2. Hypoechoic area within the right lobe liver uncertain etiology. Consider MRI [facility], , 05/27/2024 2:58 PM
== END | disposition home or self-care (01) ==
LOC: RADUSWWP 08:26
PROVIDERS: ATTEND Surgery Plastic and Reconstructive Surgery
DX: K80.20 Calculus of gallbladder without cholecystitis without obstruction (principal); K76.9 Liver disease, unspecified
CPT/HCPCS: 76705

== ENCOUNTER → 2024-06-14 | Outpatient (CLI) | payer MEDICARE ==
[2024-06-14 19:49] LABS: T4, Free (Free Thyroxine) 1.09 ng/dL (0.80-1.80)
== END | disposition home or self-care (01) ==
LOC: LABWHC1 12:37
PROVIDERS: ATTEND Family Medicine
DX: R94.6 Abnormal results of thyroid function studies (principal)
CPT/HCPCS: 36415; 84439; 84443; 84481

== ENCOUNTER 2024-06-22 08:46 | Day surgery (SDC) | payer MEDICARE ==
[2024-06-20 13:07] VITALS: BMI 39.5
--- NOTE | 2024-06-22 07:56 | P.GSHP ---
History of Present Illness H&P Date: 06/22/24 CHIEF COMPLAINT: GERD HISTORY OF PRESENT ILLNESS: The patient is a 68-year-old male who presents reports gastroesophageal reflux disease. Upper endoscopy was offered for further evaluation and management. PAST MEDICAL HISTORY: Please see list. PAST SURGICAL HISTORY: Please see list. MEDICATIONS: Please see list. ALLERGIES: Please see list. SOCIAL HISTORY: No illicit drug use FAMILY HISTORY: No reports of Crohn disease or ulcerative colitis. REVIEW OF ORGAN SYSTEMS: CONSTITUTIONAL: No reports of fevers or chills. GI: Denies any blood in stools or constipation. PHYSICAL EXAM: VITAL SIGNS: Stable GENERAL: Well-developed and pleasant in no acute distress. HEENT: No scleral icterus. Extraocular movements grossly intact. Moist buccal mucosa. NECK: Supple without lymphadenopathy. CHEST: Unlabored respirations. Equal bilateral excursions. CARDIOVASCULAR: Regular rate and rhythm. Distal 2+ pulses. ABDOMEN: Soft, nondistended. MUSCULOSKELETAL: No clubbing, cyanosis, or edema. ASSESSMENT: 1. Gastroesophageal reflux disease PLAN: 1. Recommend proceeding with an upper endoscopy Past Medical History Past Medical History: Hearing Disorder / Deafness, Hyperlipidemia, Hypertension, Osteoarthritis (OA) Additional Past Medical History / Comment(s): RIGHT EAR- HARD OF HEARING, abd. fluid sac - drained several times in Dr. Ricardo's office. History of Any Multi-Drug Resistant Organisms: None Reported Past Surgical History: Appendectomy, Hernia Repair, Joint Replacement Additional Past Surgical History / Comment(s): LEFT KNEE ARTHROTOMY,TOTAL LEFT KNEE, EYE SURGERY A CHILD, LASIK., colonoscopy Past Anesthesia/Blood Transfusion Reactions: No Reported Reaction Additional Past Anesthesia/Blood Transfusion Reaction / Comment(s): no blood transfusion Smoking Status: Former smoker - Past Family History Mother Family Medical History: No Reported History Medications and Allergies Home Medications Medication Instructions Recorded Confirmed Type Fluticasone Nasal [place] [Flonase 2 spray EA NOSTRIL DAILY 07/14/16 06/20/24 History Nasal [place]] Multivitamins, Thera [Multivitamin 1 tab PO DAILY 07/14/16 06/20/24 History (formulary)] Aspirin 81 mg PO DAILY 01/06/18 04/16/23 History Atorvastatin [Lipitor] 20 mg PO HS 06/01/22 06/20/24 History Cholecalciferol [Vitamin D3 (25 25 mcg PO DAILY 06/01/22 06/20/24 History Mcg = 1000 Iu)] Fiberpowder 2 tbsp PO DAILY 09/18/22 06/20/24 History Acetaminophen Tab [Tylenol] 650 mg PO Q6H #30 tab 09/25/22 04/16/23 Rx Ibuprofen [Motrin] 600 mg PO Q6HR PRN #40 tab 09/25/22 06/20/24 Rx Aspirin [[place] Aspirin EC] 81 mg PO DAILY 06/20/24 06/20/24 History Lisinopril-Hctz 10-12.5 mg 1 tab PO DAILY 06/20/24 06/20/24 History [Zestoretic 10-12.5] Allergies Allergy/AdvReac Type Severity Reaction Status Date / Time No Known Allergies Allergy Verified 06/20/24 13:02
[2024-06-22 09:10] VITALS: TEMP 97.6
[2024-06-22] MEDS: LACTATED RINGERS 1,000 ML IV SCH (09:10)
[2024-06-22] MEDS: LIDOCAINE 1% (10MG/ML) FOR IV START INTRADERMA STA (09:11)
[2024-06-22] MEDS ORDERED: LIDOCAINE 2% (PF) 20 MG/ML 5 ML VIAL ONE (09:41)
[2024-06-22] MEDS ORDERED: PROPOFOL 10 MG/ML 20 ML VIAL IV ONE (09:41)
[2024-06-22] MEDS: IV FLUID CONTINUATION 1,000 ML IV ONE (09:42)
[2024-06-22 10:03] VITALS: RESP 18
[2024-06-22 10:18] VITALS: BP 107/70; PULSE 73
--- NOTE | 2024-06-22 10:41 | P.PCN ---
Date of Procedure: 06/22/24 Description of Procedure: PREOPERATIVE DIAGNOSIS: Gastric ulcer Gastroesophageal reflux disease. Morbid obesity. Chronic cough Dysphagia POSTOPERATIVE DIAGNOSIS: Gastroesophageal reflux disease. Gastritis. OPERATION: Esophagogastroduodenoscopy with cold forceps biopsies along esophagus, antrum and duodenum SURGEON: Rossy Tilley MD ANESTHESIA: MAC. INDICATIONS: The patient is a 68-year-old female who presents with reflux disease and dysphagia with ulcer. Benefits and risks of the procedure were described. Informed consent was obtained. DESCRIPTION: The patient was brought into the endoscopy suite and laid in the left lateral decubitus position. An Olympus gastroscope was passed along the posterior oropharynx down to the distal esophagus where the squamocolumnar junction was encountered at 43 cm from the incisors. The stomach was entered and no bile reflux was found. Additional findings are listed below. Biopsies with cold forceps were obtained of the antrum. The first through third portion of the duodenum was examined. Retroflexion of the scope confirmed Hill grade 2 lower esophageal valve. The squamocolumnar junction demonstrated LA grade B erosive esophagitis. The stomach was desufflated. The patient tolerated the procedure well. FINDINGS: Squamocolumnar junction 43 cm from the incisors. Diaphragmatic hiatus at 43 cm. Hill grade 2 lower esophageal valve. LA grade B erosive esophagitis. Biopsies obtained Biopsies obtained of the duodenum. Presbyesophagus, mild Chronic gastritis with biopsies obtained. RECOMMENDATIONS: Omeprazole 40 mg daily for 2 to 4 weeks Upper endoscopy as needed for dysphagia Plan - Discharge Summary Discharge Rx Participant: No New Discharge Prescriptions: New Omeprazole [PriLOSEC] 40 mg PO DAILY #14 cap Continue Fluticasone Nasal Max [Flonase Nasal Max] 2 spray EA NOSTRIL DAILY Multivitamins, Thera [Multivitamin (formulary)] 1 tab PO DAILY Aspirin 81 mg PO DAILY Fiberpowder 2 tbsp PO DAILY Ibuprofen [Motrin] 600 mg PO Q6HR PRN #40 tab PRN Reason: Pain Acetaminophen Tab [Tylenol] 650 mg PO Q6H #30 tab Lisinopril-Hctz 10-12.5 mg [Zestoretic 10-12.5] 1 tab PO DAILY Cholecalciferol [Vitamin D3 (25 Mcg = 1000 Iu)] 25 mcg PO DAILY Atorvastatin [Lipitor] 20 mg PO HS Aspirin [[place] Aspirin EC] 81 mg PO DAILY Discharge Medication List Fluticasone Nasal Max [Flonase Nasal Max] 2 spray EA NOSTRIL DAILY 07/14/16 [History] Multivitamins, Thera [Multivitamin (formulary)] 1 tab PO DAILY 07/14/16 [History] Aspirin 81 mg PO DAILY 01/06/18 [History] Atorvastatin [Lipitor] 20 mg PO HS 06/01/22 [History] Cholecalciferol [Vitamin D3 (25 Mcg = 1000 Iu)] 25 mcg PO DAILY 06/01/22 [History] Fiberpowder 2 tbsp PO DAILY 09/18/22 [History] Acetaminophen Tab [Tylenol] 650 mg PO Q6H #30 tab 09/25/22 [Rx] Ibuprofen [Motrin] 600 mg PO Q6HR PRN #40 tab 09/25/22 [Rx] Aspirin [[place] Aspirin EC] 81 mg PO DAILY 06/20/24 [History] Lisinopril-Hctz 10-12.5 mg [Zestoretic 10-12.5] 1 tab PO DAILY 06/20/24 [History] Omeprazole [PriLOSEC] 40 mg PO DAILY #14 cap 06/22/24 [Rx] Follow up Appointment(s)/Referral(s): Rossy Tilley MD [STAFF PHYSICIAN] - 08/01/24 10:30 am Patient Instructions/Handouts: *Surgery [facility] - (Anesthesia) Discharge Instructions Outpatient Surgery, Esophageal Dilation (DC) Discharge Disposition: HOME SELF-CARE
== END 2024-06-22 11:44 | disposition home or self-care (01) ==
LOC: ORWHC2ENDO 08:46
PROVIDERS: ATTEND Surgery Plastic and Reconstructive Surgery
DX: K21.00 Gastro-esophageal reflux disease with esophagitis, without bleeding (principal); K22.89 Other specified disease of esophagus; K29.50 Unspecified chronic gastritis without bleeding; K29.80 Duodenitis without bleeding; K44.9 Diaphragmatic hernia without obstruction or gangrene; I10 Essential (primary) hypertension; E78.5 Hyperlipidemia, unspecified; M19.90 Unspecified osteoarthritis, unspecified site; H91.90 Unspecified hearing loss, unspecified ear; Z79.82 Long term (current) use of aspirin; Z79.899 Other long term (current) drug therapy; Z87.891 Personal history of nicotine dependence; Z96.652 Presence of left artificial knee joint
CPT/HCPCS: 81025; 88305; 43239; J2704; J2003

== ENCOUNTER → 2024-08-01 | Outpatient (CLI) | payer MEDICARE ==
[2024-08-01 18:24] LABS: HCT 37.1 % (39.6-50.0); HGB 12.5 g/dL (13.0-17.0); MCH 32.3 pg (27.0-32.0); MCHC 33.7 g/dL (32.0-37.0); MCV 95.9 FL (80.0-97.0); Mean Platelet Volume 10.5 FL (9.5-12.2); NRBC Per 100 WBC 0 X 10*3/uL (0.00-0.01); Platelet Count 261 X 10*3/uL (140-440); RBC 3.87 X 10*6/uL (4.40-5.60); RDW 12.5 % (11.5-14.5)
[2024-08-01 19:38] LABS: ALT 34 U/L (10-49); AST 24 U/L (14-35); Albumin 3.8 g/dL (3.8-4.9); Albumin/Globulin Ratio 1.46 Ratio (1.60-3.17); Alkaline Phosphatase 109 U/L (41-126); BUN/Creat Ratio 30.78 Ratio (12.00-20.00); Blood Urea Nitrogen 27.7 mg/dL (9.0-27.0); Calcium 8.8 mg/dL (8.7-10.3); Carbon Dioxide 23.6 mmol/L (21.6-31.8); Chloride 103 mmol/L (96-109); Chol/HDL Ratio 1.88 Ratio; Globulin 2.6 g/dL (1.6-3.3); Glucose 79 mg/dL (70-110); LDL Cholesterol,Calculated 56.5 mg/dL (0.0-131.0); Potassium 4.2 mmol/L (3.5-5.5); Sodium 137 mmol/L (135-145); Total Bilirubin 0.4 mg/dL (0.3-1.2); Total Protein 6.4 g/dL (6.2-8.2); VLDL Calculation 15.22 mg/dL (5.00-40.00)
== END | disposition home or self-care (01) ==
LOC: LABWHC1 08:23
PROVIDERS: ATTEND Family Medicine
DX: I10 Essential (primary) hypertension (principal); E55.9 Vitamin D deficiency, unspecified; E78.00 Pure hypercholesterolemia, unspecified; R73.03 Prediabetes
CPT/HCPCS: 36415; 80053; 80061; 82306; 83036; 85027

== ENCOUNTER → 2024-08-10 | Outpatient (CLI) | payer MEDICARE ==
[2024-08-10 18:40] LABS: Basophils # (A) 0.06 X 10*3/uL (0.00-0.10); Basophils % (A) 0.8 %; Eosinophils # (A) 0.07 X 10*3/uL (0.04-0.35); Eosinophils % (A) 0.9 %; HCT 39.5 % (39.6-50.0); HGB 13.3 g/dL (13.0-17.0); Lymphocytes # (A) 1.54 X 10*3/uL (0.90-5.00); Lymphocytes % (A) 20.3 %; MCH 33.2 pg (27.0-32.0); MCHC 33.7 g/dL (32.0-37.0); MCV 98.5 FL (80.0-97.0); Mean Platelet Volume 10.7 FL (9.5-12.2); Monocytes # (A) 0.62 X 10*3/uL (0.20-1.00); Monocytes % (A) 8.2 %; NRBC Per 100 WBC 0 X 10*3/uL (0.00-0.01); Neutrophils # (A) 5.23 X 10*3/uL (1.80-7.70); Neutrophils % (A) 68.9 %; Platelet Count 285 X 10*3/uL (140-440); RBC 4.01 X 10*6/uL (4.40-5.60); RDW 12.5 % (11.5-14.5); WBC 7.59 X 10*3/uL (4.50-10.00)
[2024-08-10 19:24] LABS: % Iron Saturation 20.96 (15.00-50.00)
== END | disposition home or self-care (01) ==
LOC: LABWHC1 13:11
PROVIDERS: ATTEND Family Medicine
DX: D64.9 Anemia, unspecified (principal)
CPT/HCPCS: 36415; 82728; 83540; 83550; 85025

== ENCOUNTER → 2025-01-01 | Outpatient (CLI) | payer MEDICARE ==
[2025-01-01 15:13] LABS: HCT 39.1 % (39.6-50.0); HGB 13.1 g/dL (13.0-17.0); MCHC 33.5 g/dL (32.0-37.0); MCV 95.6 FL (80.0-97.0); Mean Platelet Volume 10.7 FL (9.5-12.2); NRBC Per 100 WBC 0 X 10*3/uL (0.00-0.01); Platelet Count 286 X 10*3/uL (140-440); RBC 4.09 X 10*6/uL (4.40-5.60); RDW 12.5 % (11.5-14.5); WBC 7.11 X 10*3/uL (4.50-10.00)
[2025-01-01 15:22] LABS: Appearance,Urine Clear (Clear); Bilirubin,Urine Negative (Negative); Blood,Urine Negative (Negative); Color,Urine Yellow (Yellow); Ketones,Urine Negative (Negative); Nitrite,Urine Negative (Negative); PH, Urine 5.5; Specific Gravity,Urine 1.016 (1.001-1.030); Urobilinogen,Urine 0.2 E.U./DL
[2025-01-01 15:28] LABS: Bacteria,Urine None Seen (None Seen)
[2025-01-01 15:42] LABS: ALT 36 U/L (10-49); AST 29 U/L (14-35); Albumin 4.3 g/dL (3.8-4.9); Albumin/Globulin Ratio 1.59 Ratio (1.60-3.17); Alkaline Phosphatase 72 U/L (41-126); BUN/Creat Ratio 19.67 Ratio (12.00-20.00); Blood Urea Nitrogen 23.6 mg/dL (9.0-27.0); Calcium 9.3 mg/dL (8.7-10.3); Carbon Dioxide 24.1 mmol/L (21.6-31.8); Chloride 97 mmol/L (96-109); Chol/HDL Ratio 2.43 Ratio; Globulin 2.7 g/dL (1.6-3.3); Glucose 109 mg/dL (70-110); LDL Cholesterol,Calculated 83.8 mg/dL (0.0-131.0); Potassium 4.7 mmol/L (3.5-5.5); Prostate Specific Antigen 0.79 ng/mL (0.000-6.500); Sodium 135 mmol/L (135-145); Total Bilirubin 1.5 mg/dL (0.3-1.2); VLDL Calculation 19.26 mg/dL (5.00-40.00)
== END | disposition home or self-care (01) ==
LOC: LABWHC1 11:08
PROVIDERS: ATTEND Family Medicine
DX: E78.00 Pure hypercholesterolemia, unspecified (principal); I10 Essential (primary) hypertension; N40.0 Benign prostatic hyperplasia without lower urinary tract symptoms; E55.9 Vitamin D deficiency, unspecified; Z68.39 Body mass index [BMI] 39.0-39.9, adult
CPT/HCPCS: 36415; 80053; 80061; 81001; 82306; 83036; 84153; 84443; 85027

== ENCOUNTER → 2025-01-08 | Outpatient (CLI) | payer MEDICARE ==
[2025-01-08 15:55] LABS: Bilirubin, Conjugated 0.49 mg/dL (0.20-0.40); Bilirubin,Unconjugated 0.71 mg/dL (0.20-1.00); Total Bilirubin 1.2 mg/dL (0.3-1.2)
== END | disposition home or self-care (01) ==
LOC: LABWHC1 09:32
PROVIDERS: ATTEND Family Medicine
DX: R17 Unspecified jaundice (principal)
CPT/HCPCS: 36415; 82248

== ENCOUNTER 2025-01-28 12:49 | Emergency (ER) | payer MEDICARE ==
[2025-01-28 12:56] VITALS: RESP 18
--- NOTE | 2025-01-28 13:22 | ED ---
Abdominal Pain HPI - General Chief Complaint: Abdominal Pain Stated Complaint: Abd Pain Time Seen by Provider: 01/28/25 12:57 Source: patient, family Mode of arrival: wheelchair Limitations: no limitations - History of Present Illness Initial Comments: 69-year-old male presenting with chief complaint of abdominal pain. Patient started having constant epigastric pain about an hour ago. States that he ate breakfast about an hour prior to the pain. States that he could not find a position to get comfortable in. He admitted to nausea, no vomiting. He denies any chest pain or difficulty breathing. Reports that he has seen Dr. Tilley in the past, was told that he did have gallstones. Pain has decreased slightly. Surgical history includes appendectomy and hernia repair. - Related Data Home Medications Medication Instructions Recorded Confirmed Fluticasone Nasal [place] [Flonase 2 spray EA NOSTRIL DAILY 07/14/16 06/22/24 Nasal [place]] Multivitamins, Thera [Multivitamin 1 tab PO DAILY 07/14/16 06/22/24 (formulary)] Aspirin 81 mg PO DAILY 01/06/18 06/22/24 Atorvastatin [Lipitor] 20 mg PO HS 06/01/22 06/22/24 Cholecalciferol [Vitamin D3 (25 25 mcg PO DAILY 06/01/22 06/22/24 Mcg = 1000 Iu)] Fiberpowder 2 tbsp PO DAILY 09/18/22 06/22/24 Aspirin [[place] Aspirin EC] 81 mg PO DAILY 06/20/24 06/22/24 Lisinopril-Hctz 10-12.5 mg 1 tab PO DAILY 06/20/24 06/22/24 [Zestoretic 10-12.5] Previous Rx's Medication Instructions Recorded Acetaminophen Tab [Tylenol] 650 mg PO Q6H #30 tab 09/25/22 Ibuprofen [Motrin] 600 mg PO Q6HR PRN #40 tab 09/25/22 Omeprazole [PriLOSEC] 40 mg PO DAILY #14 cap 06/22/24 Acetaminophen-Codeine 300-30mg 1 tab PO Q6H PRN 3 Days #12 tablet 01/28/25 [Tylenol w/codeine #3] Ondansetron Odt [Zofran Odt] 4 mg PO Q8HR PRN #20 tab 01/28/25 Allergies Allergy/AdvReac Type Severity Reaction Status Date / Time No Known Allergies Allergy Verified 01/28/25 12:52 Review of Systems ROS Statement: Those systems with pertinent positive or pertinent negative responses have been documented in the HPI. ROS Other: All systems not noted in ROS Statement are negative. Past Medical History Past Medical History: Hearing Disorder / Deafness, Hyperlipidemia, Hypertension, Osteoarthritis (OA) Additional Past Medical History / Comment(s): RIGHT EAR- HARD OF HEARING, abd. fluid sac - drained several times in Dr. Ricardo's office. History of Any Multi-Drug Resistant Organisms: None Reported Past Surgical History: Appendectomy, Hernia Repair Additional Past Surgical History / Comment(s): LEFT KNEE ARTHROTOMY,TOTAL LEFT KNEE, EYE SURGERY A CHILD, LASIK. Past Anesthesia/Blood Transfusion Reactions: No Reported Reaction Additional Past Anesthesia/Blood Transfusion Reaction / Comment(s): no blood transfusion Past Psychological History: No Psychological Hx Reported Smoking Status: Former smoker - Past Family History Mother Family Medical History: No Reported History General Exam Limitations: no limitations General appearance: alert, in no apparent distress Head exam: Present: atraumatic, normocephalic, normal inspection Eye exam: Present: normal appearance, EOMI Neck exam: Present: normal inspection. Absent: meningismus Respiratory exam: Present: normal lung sounds bilaterally. Absent: respiratory distress, wheezes, rales, rhonchi, stridor Cardiovascular Exam: Present: regular rate, normal rhythm, normal heart sounds. Absent: systolic murmur, diastolic murmur, rubs, gallop, clicks GI/Abdominal exam: Present: soft, tenderness, guarding. Absent: distended, rebound, rigid Neurological exam: Present: alert, oriented X3 Psychiatric exam: Present: normal affect, normal mood Skin exam: Present: warm, dry, normal color Course Vital Signs 01/28/25 01/28/25 01/28/25 12:52 14:58 16:47 Temperature 97.6 F 98.5 F Pulse Rate 68 58 L 66 Respiratory 18 18 18 Rate Blood Pressure 112/73 119/70 93/59 O2 Sat by Pulse 97 98 100 Oximetry Medical Decision Making - Medical Decision Making Was pt. sent in by a medical professional or institution (, PA, COMPLIANCE NURSE, urgent care, hospital, or prison...) When possible be specific @ -No Did you speak to anyone other than the patient for history (EMS, parent, family, police, friend...)? What history was obtained from this source @ -No Did you review nursing and triage notes (agree or disagree)? Why? @ -I reviewed and agree with nursing and triage notes Were old charts reviewed (outside hosp., previous admission, EMS record, old EKG, old radiological studies, urgent care reports/EKG's, prison records)? Report findings @ -No old charts were reviewed Differential Diagnosis (chest pain, altered mental status, abdominal pain women, abdominal pain men, vaginal bleeding, weakness, fever, dyspnea, syncope, headache, dizziness, GI bleed, back pain, seizure, CVA, palpatations, mental health, musculoskeletal)? @ -MDM Differential Abdominal Pain Men: Appendicitis, cholecystitis, diverticulosis, ischemic bowel, pancreatitis, hepatitis, UTI, gastroenteritis, AAA, incarcerated hernia, bowel obstruction, constipation, inflammatory bowel, hepatitis, peptic ulcer disease, splenic infarction, perforated viscus, testicular torsion... This is not meant to be an all-inclusive list EKG interpreted by me (3pts min.). @ -As above X-rays interpreted by me (1pt min.). @ -None done CT interpreted by me (1pt min.). @ -None done U/S interpreted by me (1pt. min.). @ -Ultrasound shows cholelithiasis without definitive sonographic evidence of acute cholecystitis What testing was considered but not performed or refused? (CT, X-rays, U/S, labs)? Why? @ -None What meds were considered but not given or refused? Why? @ -None Did you discuss the management of the patient with other professionals (professionals i.e. , PA, COMPLIANCE NURSE, lab, RT, psych nurse, sr. social media & mobile manager, digital media strategist, teacher, chief data officer, field nurse case manager)? Give summary @ -No Was smoking cessation discussed for >3mins.? @ -No Was critical care preformed (if so, how long)? @ -No Were there social determinants of health that impacted care today? How? (Homelessness, low income, unemployed, alcoholism, drug addiction, transportation, low edu. Level, literacy, decrease access to med. care, longterm, rehab)? @ -No Was there de-escalation of care discussed even if they declined (Discuss DNR or withdrawal of care, Hospice)? DNR status @ -No What co-morbidities impacted this encounter? (DM, HTN, Smoking, COPD, CAD, Cancer, CVA, ARF, Chemo, Hep., AIDS, mental health diagnosis, sleep apnea, morbid obesity)? @ -None Was patient admitted / discharged? Hospital course, mention meds given and route, prescriptions, significant lab abnormalities, going to OR and other pertinent info. @ -69-year-old male presenting with chief complaint of epigastric pain. History and physical examination are conducted. No leukocytosis. Bilirubin 2, AST, ALT, and alkaline phosphatase are WNL. Ultrasound shows cholelithiasis without evidence of acute cholecystitis. Patient's pain is under good control and he is tolerating oral intake. He is educated on today's findings. He is provided with pain medication for home and instructed to follow-up with his surgeon Dr. Tilley. Follow-up with PCP. Report back to ER with any new or worsening symptoms. Discussed return parameters and answered all questions. Patient conveyed verbal understanding and agreed to the plan. I discussed this case in detail with my attending Dr. Carias Undiagnosed new problem with uncertain prognosis? @ -No Drug Therapy requiring intensive monitoring for toxicity (Heparin, Nitro, Insul in, Cardizem)? @ -No Were any procedures done? @ -No Diagnosis/symptom? @ -Gallstones Acute, or Chronic, or Acute on Chronic? @ -Acute Uncomplicated (without systemic symptoms) or Complicated (systemic symptoms)? @ -Uncomplicated Side effects of treatment? @ -No Exacerbation, Progression, or Severe Exacerbation? @ -No Poses a threat to life or bodily function? How? (Chest pain, [place], [place], pneumonia, PE, COPD, DKA, ARF, appy, cholecystitis, CVA, Diverticulitis, Homicidal, Suicidal, threat to staff... and all critical care pts) @ -Unlikely - Lab Data Result diagrams: 01/28/25 13:31 01/28/25 13:31 Lab Results 01/28/25 01/28/25 01/28/25 Range/Units 13:31 13:31 13:31 WBC 6.60 (4.50-10.00) 10*3/uL RBC 3.85 L (4.40-5.60) 10*6/uL Hgb 12.9 L (13.0-17.0) g/dL Hct 36.4 L (39.6-50.0) % MCV 94.5 (80.0-97.0) fL MCH 33.5 H (27.0-32.0) pg MCHC 35.4 (32.0-37.0) g/dL Plt Count 252 (140-440) 10*3/uL MPV 10.6 (9.5-12.2) fL Immature Gran % (Auto) 1.1 % Neutrophils % 70.5 % Lymphocytes % 18.6 % Monocytes % 6.7 % Eosinophils % 2.3 % Basophils % 0.8 % Immature Gran # 0.07 H (0.00-0.04) 10*3/uL Neutrophils # 4.66 (1.80-7.70) 10*3/uL Lymphocytes # 1.23 (0.90-5.00) 10*3/uL Monocytes # 0.44 (0.20-1.00) 10*3/uL Eosinophils # 0.15 (0.04-0.35) 10*3/uL Basophils # 0.05 (0.00-0.10) 10*3/uL Sodium 134 L (137-145) mmol/L Potassium 4.1 (3.5-5.1) mmol/L Chloride 97 L (98-107) mmol/L Carbon Dioxide 29 (22-30) mmol/L Anion Gap 8 mmol/L BUN 23 H (9-20) mg/dL Creatinine 1.01 (0.66-1.25) mg/dL Est GFR (CKD-EPI)AfAm 86 (>60 ml/min/1.73 sqM) Est GFR (CKD-EPI)NonAf 75 (>60 ml/min/1.73 sqM) Glucose 142 H (74-99) mg/dL Plasma Lactic Acid [place] 1.1 (0.7-2.0) mmol/L Calcium 9.2 (8.4-10.2) mg/dL Total Bilirubin 2.0 H (0.2-1.3) mg/dL AST 53 (17-59) U/L ALT 48 (4-49) U/L Alkaline Phosphatase 86 (38-126) U/L Troponin I (0.000-0.034) ng/mL Total Protein 6.6 (6.3-8.2) g/dL Albumin 4.0 (3.5-5.0) g/dL Amylase 50 (30-110) U/L Lipase 112 (23-300) U/L // Range/Units 13:31 WBC (4.50-10.00) 10*3/uL RBC (4.40-5.60) 10*6/uL Hgb (13.0-17.0) g/dL Hct (39.6-50.0) % MCV (80.0-97.0) fL MCH (27.0-32.0) pg MCHC (32.0-37.0) g/dL Plt Count (140-440) 10*3/uL MPV (9.5-12.2) fL Immature Gran % (Auto) % Neutrophils % % Lymphocytes % % Monocytes % % Eosinophils % % Basophils % % Immature Gran # (0.00-0.04) 10*3/uL Neutrophils # (1.80-7.70) 10*3/uL Lymphocytes # (0.90-5.00) 10*3/uL Monocytes # (0.20-1.00) 10*3/uL Eosinophils # (0.04-0.35) 10*3/uL Basophils # (0.00-0.10) 10*3/uL Sodium (137-145) mmol/L Potassium (3.5-5.1) mmol/L Chloride (98-107) mmol/L Carbon Dioxide (22-30) mmol/L Anion Gap mmol/L BUN (9-20) mg/dL Creatinine (0.66-1.25) mg/dL Est GFR (CKD-EPI)AfAm (>60 ml/min/1.73 sqM) Est GFR (CKD-EPI)NonAf (>60 ml/min/1.73 sqM) Glucose (74-99) mg/dL Plasma Lactic Acid [place] (0.7-2.0) mmol/L Calcium (8.4-10.2) mg/dL Total Bilirubin (0.2-1.3) mg/dL AST (17-59) U/L ALT (4-49) U/L Alkaline Phosphatase (38-126) U/L Troponin I <0.012 (0.000-0.034) ng/mL Total Protein (6.3-8.2) g/dL Albumin (3.5-5.0) g/dL Amylase (30-110) U/L Lipase (23-300) U/L Disposition Clinical Impression: Gallstones Disposition: HOME SELF-CARE Condition: Good Instructions (If sedation given, give patient instructions): Gallstones (ED) Additional Instructions: Follow-up with surgeon. Report back to ER with any new or worsening symptoms. Prescriptions: Acetaminophen-Codeine 300-30mg [Tylenol w/codeine #3] 1 tab PO Q6H PRN 3 Days #12 tablet PRN Reason: Pain Ondansetron Odt [Zofran Odt] 4 mg PO Q8HR PRN #20 tab PRN Reason: Nausea Is patient prescribed a controlled substance at d/c from ED?: Yes When asked, does pt state using other controlled substances?: No If prescribed controlled substance>3 days was MAPS reviewed?: Prescribed <3 Days If opioid is for acute pain is fill amount 7 days or less?: Yes Referrals: None,Stated [REFERRING] - 1-2 days Rossy Tilley MD [STAFF PHYSICIAN] - 1-2 days Time of Disposition: 16:04
[2025-01-28 13:38] LABS: Basophils # (A) 0.05 10*3/uL (0.00-0.10); Basophils % (A) 0.8 %; Eosinophils # (A) 0.15 10*3/uL (0.04-0.35); Eosinophils % (A) 2.3 %; HCT 36.4 % (39.6-50.0); HGB 12.9 g/dL (13.0-17.0); Lymphocytes # (A) 1.23 10*3/uL (0.90-5.00); Lymphocytes % (A) 18.6 %; MCH 33.5 pg (27.0-32.0); MCHC 35.4 g/dL (32.0-37.0); MCV 94.5 fL (80.0-97.0); Monocytes # (A) 0.44 10*3/uL (0.20-1.00); Monocytes % (A) 6.7 %; Neutrophils # (A) 4.66 10*3/uL (1.80-7.70); Neutrophils % (A) 70.5 %; Platelet Count 252 10*3/uL (140-440); RBC 3.85 10*6/uL (4.40-5.60); RDW 12.3 % (11.5-14.5); WBC 6.60 10*3/uL (4.50-10.00)
[2025-01-28 13:49] LABS: ALT 48 U/L (4-49); AST 53 U/L (17-59); African American GFR (CKD) 86 (>60 ml/min/1.73 sqM); Albumin 4.0 g/dL (3.5-5.0); Alkaline Phosphatase 86 U/L (38-126); Amylase 50 U/L (30-110); Anion Gap 8 mmol/L; Blood Urea Nitrogen 23 mg/dL (9-20); Calcium 9.2 mg/dL (8.4-10.2); Carbon Dioxide 29 mmol/L (22-30); Chloride 97 mmol/L (98-107); Glucose 142 mg/dL (74-99); Lipase 112 U/L (23-300); Non-African American GFR(CKD) 75 (>60 ml/min/1.73 sqM); Potassium 4.1 mmol/L (3.5-5.1); Sodium 134 mmol/L (137-145); Total Protein 6.6 g/dL (6.3-8.2)
--- NOTE | 2025-01-28 14:53 | US ---
EXAMINATION TYPE: US abdomen limited DATE OF EXAM: 01/28/2025 COMPARISON: NONE CLINICAL INDICATION: Male, 69 years old with history of RUQ/epigastric pain; RUQ pain hx of stones ex am limited due to body habitus and bowel gas. TECHNIQUE: Grayscale and color Doppler imaging of the right upper quadrant was performed. FINDINGS: EXAM MEASUREMENTS: Liver Length: 16.2 cm Gallbladder Wall: .3 cm CBD: .6 cm Right Kidney: 11.7 x 5.6 x 4.3 cm SPINE SUPERVISOR NOTES: Pancreas: Obscured by bowel gas Liver: Increased attenuation suggesting steatosis. Indeterminate hypoechoic possibly cystic lesion i n the right lobe measuring 1.2 x 1.0 x 1.0 cm Gallbladder: Stones visualized Evidence for sonographic Cerda's sign: No. CBD: wnl Right Kidney: No hydronephrosis or masses seen IMPRESSION: Cholelithiasis without definite sonographic evidence of acute cholecystitis. [facility], , 01/28/2025 2:51 PM
[2025-01-28] MEDS: MORPHINE SULFATE 4 MG/ML SYRINGE IVP STA ×2 (14:56→15:36)
[2025-01-28] MEDS: KETOROLAC 15 MG/ML 1 ML VIAL IVP STA (15:00)
[2025-01-28] MEDS: ONDANSETRON 4 MG/2 ML VIAL IVP STA (15:11)
[2025-01-28 16:49] VITALS: BP 93/59; PULSE 66; TEMP 98.5
== END 2025-01-28 16:49 | disposition home or self-care (01) ==
LOC: EC 12:49
DX: K80.20 Calculus of gallbladder without cholecystitis without obstruction (principal); Z87.891 Personal history of nicotine dependence
CPT/HCPCS: 36415; 93005; 80053; 82150; 83605; 83690; 84484; 85025; 76705; 99284; 96374; 96375; J2270; J1885